=== PATIENT | male | born 1965 | race Caucasian/White ===

== ENCOUNTER 2021-02-12 11:14 | Emergency (ER) | payer MEDICARE ==
[2021-02-12 11:29] VITALS: BP 148/94; PULSE 94; RESP 18; TEMP 98.1
--- NOTE | 2021-02-12 11:53 | ED ---
General Adult HPI - General Chief complaint: Drug Screen Stated complaint: Drug test Time Seen by Provider: 02/12/21 11:31 Source: patient Mode of arrival: ambulatory Limitations: no limitations - History of Present Illness Initial comments: Dictation was produced using [employer] dictation software. please excuse any grammatical, word or spelling errors. Chief Complaint: Patient here in the emergency department requesting drug screen History of Present Illness: Patient is a 55-year-old male who presents today for concerns of abnormal outpatient drug screens. Patient was in rehab approximately one month ago where he was given phenobarbital for alcohol withdrawals. He has not had any drugs or any sort of strange supplements in the last month or so. He had a urine drug screen today at his [facility] where he lives. He states that he tested positive for phenobarbital. Patient was unhappy with the results given that he's been clean for several weeks now. Wants to have his urine checked. He wants to have his urine checked urinary emergency department. Patient has no medical complaints at this time. The ROS documented in this emergency department record has been reviewed and confirmed by me. Those systems with pertinent positive or negative responses have been documented in the HPI. All other systems are other negative and/or noncontributory. PHYSICAL EXAM: General Impression: Alert and oriented x3, not in acute distress HEENT: Normocephalic atraumatic, extra-ocular movements intact, pupils equal and reactive to light bilaterally, mucous membranes moist. Cardiovascular: Heart regular rate and rhythm Chest: Able to complete full sentences, no retractions, no tachypnea Abdomen: abdomen soft, non-tender, non-distended, no organomegaly Musculoskeletal: Pulses present and equal in all extremities, no peripheral edema Motor: no focal deficits noted Neurological: CN II-XII grossly intact, no focal motor or sensory deficits noted Skin: Intact with no visualized rashes Psych: Normal affect and mood ED course: 55-year-old male presents to the emergency department for urine drug screen. Vital signs upon arrival are within acceptable limits. Urine drug screen positive for barbiturates. Patient discharge. - Related Data Allergies Allergy/AdvReac Type Severity Reaction Status Date / Time No Known Allergies Allergy Verified 02/12/21 11:26 Review of Systems ROS Statement: Those systems with pertinent positive or pertinent negative responses have been documented in the HPI. ROS Other: All systems not noted in ROS Statement are negative. Past Medical History Past Medical History: No Reported History History of Any Multi-Drug Resistant Organisms: None Reported Past Surgical History: Back Surgery Past Psychological History: No Psychological Hx Reported Smoking Status: Current every day smoker Past Alcohol Use History: Abuse, Daily, Heavy Past Drug Use History: None Reported General Exam Limitations: no limitations Course Vital Signs 02/12/21 11:26 Temperature 98.1 F Pulse Rate 94 Respiratory 18 Rate Blood Pressure 148/94 O2 Sat by Pulse 99 Oximetry Medical Decision Making - Lab Data Lab Results 02/12/21 Range/Units 11:39 Urine Opiates Screen Not Detected (NotDetected) Ur Oxycodone Screen Not Detected (NotDetected) Urine Methadone Screen Not Detected (NotDetected) Ur Propoxyphene Screen Not Detected (NotDetected) Ur Barbiturates Screen Detected H (NotDetected) U Tricyclic Antidepress Not Detected (NotDetected) Ur Phencyclidine Scrn Not Detected (NotDetected) Ur Amphetamines Screen Not Detected (NotDetected) U Methamphetamines Scrn Not Detected (NotDetected) U Benzodiazepines Scrn Not Detected (NotDetected) Urine Cocaine Screen Not Detected (NotDetected) U Marijuana (THC) Screen Not Detected (NotDetected) Disposition Clinical Impression: Abnormal drug screen Disposition: HOME SELF-CARE Condition: Good Instructions (If sedation given, give patient instructions): Narcotic- Analgesic/Barbiturate (By mouth) Is patient prescribed a controlled substance at d/c from ED?: No Referrals: None,Stated [Primary Care Provider] - 1-2 days
[2021-02-12 13:24] LABS: Amphetamine Screen,Urine Not Detected (NotDetected); Barbiturate Screen,Urine Detected (NotDetected); Benzodiazepines Screen,Urine Not Detected (NotDetected); Cocaine Screen,Urine Not Detected (NotDetected); Methadone Screen, Urine Not Detected (NotDetected); Opiate Screen,Urine Not Detected (NotDetected); Oxycodone Screen, Urine Not Detected (NotDetected); Phencyclidine Screen,Urine Not Detected (NotDetected); Tricyclic Antidepressant,Urine Not Detected (NotDetected); Urn Cannabinoid Scrn Not Detected (NotDetected)
== END 2021-02-12 13:59 | disposition home or self-care (01) ==
LOC: EC 11:14
DX: R89.2 Abnormal level of other drugs, medicaments and biological substances in specimens from other organs, systems and tissues (principal); F17.200 Nicotine dependence, unspecified, uncomplicated
CPT/HCPCS: 80306; 99282

== ENCOUNTER → 2021-02-20 | Outpatient (CLI) | payer MEDICARE ==
[2021-02-21 15:34] LABS: African American GFR (CKD) 88.4 (60.0-200.0); Albumin 4.5 g/dL (3.80-4.90); Albumin/Globulin Ratio 1.5 (1.60-3.17); Anion Gap 11.2 mmol/L (4.00-12.00); BUN/Creat Ratio 15.45 Ratio (12.00-20.00); Calcium 9.8 mg/dL (8.7-10.3); Carbon Dioxide 19.8 mmol/L (21.6-31.8); Non-African American GFR(CKD) 76.2 (60.0-200.0); Potassium 4.8 mmol/L (3.5-5.5); Total Bilirubin 0.4 mg/dL (0.2-1.2); Total Protein 7.5 g/dL (6.2-8.2)
[2021-02-21 16:09] LABS: Hepatitis A Antibody IgM Non-Reactive (Non-Reactive); Hepatitis B Core IgM Non-Reactive (Non-Reactive); Hepatitis B Surface Antigen Non-Reactive (Non-Reactive); Hepatitis C IgG Antibody Reactive (Non-Reactive)
== END | disposition home or self-care (01) ==
LOC: LABWHC1 14:26
PROVIDERS: ATTEND Physician Assistant
DX: Z13.818 Encounter for screening for other digestive system disorders (principal); R94.5 Abnormal results of liver function studies
CPT/HCPCS: 36415; 80053; 80074

== ENCOUNTER → 2021-03-06 | Outpatient (CLI) | payer MEDICARE | END | disposition home or self-care (01) | LOC: LABWHC1 08:58 | PROVIDERS: ATTEND Internal Medicine | DX: Z79.811 Long term (current) use of aromatase inhibitors (principal) | CPT/HCPCS: 36415; 80184 ==

== ENCOUNTER 2023-11-08 13:59 | Inpatient (IN) | payer MEDICARE ==
--- NOTE | 2023-11-08 15:04 | ED ---
Psych HPI - General Chief Complaint: Psychiatric Symptoms Stated Complaint: mental health Time Seen by Provider: 11/08/23 14:50 Source: patient, RN notes reviewed Mode of arrival: ambulatory Limitations: no limitations - History of Present Illness Initial Comments: This is a 58-year-old male who presents to the emergency department for psychiatric evaluation. Patient states that this morning he started to feel suicidal with a plan to drown himself in the river. States that he had some depression over the last couple of days but it has not been as bad as it was today. Denies any triggering events. He had similar problems several years ago. Not currently on any medication or receiving any psychiatric care. Denies any homicidal ideations or auditory/visual hallucinations. MD Complaint: suicidal ideation, feels depressed - Related Data Home Medications Medication Instructions Recorded Confirmed No Known Home Medications 11/08/23 11/08/23 Allergies Allergy/AdvReac Type Severity Reaction Status Date / Time No Known Allergies Allergy Verified 11/08/23 16:26 Review of Systems ROS Statement: Those systems with pertinent positive or pertinent negative responses have been documented in the HPI. ROS Other: All systems not noted in ROS Statement are negative. Past Medical History Past Medical History: No Reported History History of Any Multi-Drug Resistant Organisms: None Reported Past Surgical History: Back Surgery Past Psychological History: No Psychological Hx Reported Smoking Status: Current every day smoker Past Alcohol Use History: None Reported Past Drug Use History: None Reported General Exam Limitations: no limitations General appearance: alert, in no apparent distress Head exam: Present: atraumatic, normocephalic, normal inspection Respiratory exam: Present: normal lung sounds bilaterally. Absent: respiratory distress, wheezes, rales, rhonchi, stridor Cardiovascular Exam: Present: regular rate, normal rhythm, normal heart sounds. Absent: systolic murmur, diastolic murmur, rubs, gallop, clicks Neurological exam: Present: alert, oriented X3, CN II-XII intact Psychiatric exam: Present: depressed, flat affect, suicidal ideation. Absent: homicidal ideation Skin exam: Present: warm, dry, intact, normal color. Absent: rash Course Vital Signs 11/08/23 14:10 Temperature 98.3 F Pulse Rate 94 Respiratory 20 Rate Blood Pressure 135/89 O2 Sat by Pulse 99 Oximetry Medical Decision Making - Medical Decision Making This is a 58 year old male who presents to the emergency department for psychiatric evaluation. Was pt. sent in by a medical professional or institution? @ -No Did you speak to anyone other than the patient for history? @ -No Did you review nursing and triage notes? @ -Yes, and I agree, it is accurate with regards to the patient's symptoms. Were old charts reviewed? @ -No Differential Diagnosis? @ -Differential Mental Health: Depression, anxiety, bipolar, psychosis, schizophrenia, borderline personality, situational depression, adjustment disorder, behavioral disorder, brain tumor, malingering, substance abuse, encephalopathy, medication reaction, dementia, hypothyroidism, degenerative neurologic disorder, lupus.... This is not meant to be all-inclusive list EKG interpreted by me (3pts min.)? @ -Not obtained X-rays interpreted by me (1pt min.)? @ -Not obtained CT interpreted by me (1pt min.)? @ -Not obtained U/S interpreted by me (1pt. min.)? @ -Not obtained What testing was considered but not performed? (CT, X-rays, U/S, labs)? Why? @ -None What meds were considered but not given? Why? @ -None Did you discuss the management of the patient with other professionals? @ -Yes, Mami Welch with [facility] who advised that the patient meets psychiatric admission criteria and will sign himself in voluntarily. Did you reconcile home meds? @ -Yes Was smoking cessation discussed for >3mins.? @ -No Was critical care preformed (if so, how long)? @ -No Were there social determinants of health that impacted care today? How? (Homelessness, low income, unemployed, alcoholism, drug addiction, tra nsportation, low edu. Level, literacy, decrease access to med. care, [facility], rehab)? @ -Alcoholism, potentially contributing to worsening of overall health status and mental health issues. Was there de-escalation of care discussed even if they declined? (Discuss DNR or withdrawal of care, Hospice)? @ -No What co-morbidities impacted this encounter? (DM, HTN, Smoking, COPD, CAD, Cancer, CVA, Hep., AIDS, mental health diagnosis, sleep apnea, morbid obesity)? @ -Alcoholism Was patient admitted / discharged? @ -Admitted. BAT was 0.044 on arrival and the patient is considered sober given that this was below the legal limit and he was medically cleared for [facility] evaluation. [facility] evaluated the patient and advised that given the suicidal ideations with active plan, he does meet criteria for inpatient psychiatric hospitalization. Patient will be signing himself in voluntarily. UDS ordered with results pending at the time of admission. Undiagnosed new problem with uncertain prognosis? @ -None Drug Therapy requiring intensive monitoring for toxicity (Heparin, Nitro, Insulin, Cardizem)? @ -None Were any procedures done? @ -None Diagnosis/symptom? @ -Suicidal ideations Acute, or Chronic, or Acute on Chronic? @ -Acute Uncomplicated (without systemic symptoms) or Complicated (systemic symptoms)? @ -Uncomplicated Side effects of treatment? @ -None Exacerbation, Progression, or Severe Exacerbation] @ -Not applicable Poses a threat to life or bodily function? @ -Yes, can lead to if patient were to proceed with suicidal ideations. This case was discussed in detail with the attending ED physician, Dr. Simpson. Presentation, findings, and treatment plan discussed in detail as well. - Lab Data Lab Results 11/08/23 Range/Units 16:05 SARS-CoV-2 (PCR) Not Detected (Not Detectd) Disposition Clinical Impression: Suicidal ideation Disposition: ADMITTED IP TO THIS HOSP
[2023-11-08] MEDS: LORazepam 1 MG TAB PO STA (18:04)
[2023-11-08] MEDS ORDERED: IBUPROFEN 600 MG TAB PO PRN (18:06)
[2023-11-08] MEDS ORDERED: hydrOXYzine HCL 50 MG/ML 1 ML VIAL IM PRN (18:06)
[2023-11-08] MEDS ORDERED: MAGNESIUM HYDROXIDE 2,400 MG/30 ML CUP PO PRN (18:06)
[2023-11-08] MEDS ORDERED: MAG HYDROX/AL HYDROX/SIMETH 355 ML BOTTLE PO PRN (18:06)
--- NOTE | 2023-11-09 00:11 | P.MDCNMH ---
History of Present Illness H&P Date: 11/09/23 Chief Complaint: Medical evaluation 58-year-old male with no significant past medical history Patient was brought in for evaluation of mental health due to depression and suicidal ideation he was planning on throwing himself in the river he was he is having some depressed mood over the past few days has been getting worse. He reports similar episodes in the past but he is currently on no medication and under no psychiatrist care He otherwise denies any fevers chills nausea vomiting chest pain trouble breathing abdominal pain GI bleeding changes in bowel or urinary habits Patient does admit to smoking and occasional alcohol denies any drugs review of systems Pertinent positives as noted in HPI. All other systems were reviewed and are negative on exam Constitutional: No acute distress, Eyes: Anicteric sclerae, moist conjunctiva, Pupils equal round reactive to light ENMT: NC/AT Oropharynx clear, no erythema, or exudates Lungs: Clear to auscultation Clear to percussion Normal respiratory effort, no accessory muscle use Cardiovascular: Heart regular in rate and rhythm, No murmurs, gallops, or rubs No peripheral edema Abdominal: Soft Nontender, no guarding, rebound or rigidity Abdomen moving with respiration Normoactive bowel sounds Extremities: No digital cyanosis No clubbing Pedal pulses intact and symmetrical Radial pulses intact and symmetrical No calf tenderness Psychiatric: Alert and oriented to person, place and time Neuro Muscles Strength 5/5 in all 4 extremities Sensation to light touch grossly present throughout Cranial nerves II-XII grossly intact Past Medical History Past Medical History: No Reported History History of Any Multi-Drug Resistant Organisms: None Reported Past Surgical History: Back Surgery Smoking Status: Current every day smoker Medications and Allergies Home Medications Medication Instructions Recorded Confirmed Type No Known Home Medications 11/08/23 11/08/23 History Allergies Allergy/AdvReac Type Severity Reaction Status Date / Time No Known Allergies Allergy Verified 11/08/23 16:26 Physical Exam Vitals: Vital Signs Temp Pulse Pulse Resp BP BP Pulse Ox 11/08/23 19:04 98.0 F 82 20 133/80 11/08/23 14:10 98.3 F 94 20 135/89 99 Intake and Output 11/08/23 11/08/23 11/09/23 14:59 22:59 06:59 Other: Weight 81.647 kg 82.735 kg Cranial Nerve Examination - Cranial Nerves Cranial Nerve II- Optic: Intact Cranial Nerve III- Oculomotor: Intact Cranial Nerve IV- Trochlear: Intact Cranial Nerve V- Trigeminal: Intact Cranial Nerve - Abducens: Intact Cranial Nerve VII- Facial: Intact Cranial Nerve VIII- Auditory: Intact Cranial Nerve IX- Glossopharyngeal: Intact Cranial Nerve X- Vagus: Intact Cranial Nerve XI- Accessory: Intact Cranial Nerve XII- Hypoglossal: Intact Assessment and Plan Assessment: Depression suicidal ideation management per psych Tobacco smoking Counseled to quit smoking Offered nicotine replacement therapy Blood work still pending Vital signs stable Thank you for this consultation
[2023-11-09 08:18] LABS: Basophils # (A) 0.1 k/uL (0-0.2); Basophils % (A) 1 %; Eosinophils # (A) 0.2 k/uL (0-0.7); Eosinophils % (A) 3 %; HCT 48.8 % (39.0-53.0); HGB 15.9 gm/dL (13.0-17.5); Lymphocytes # (A) 1.5 k/uL (1.0-4.8); Lymphocytes % (A) 28 %; MCH 31.3 pg (25.0-35.0); MCHC 32.6 g/dL (31.0-37.0); Mean Platelet Volume 7.5; Monocytes # (A) 0.4 k/uL (0-1.0); Monocytes % (A) 7 %; Neutrophils # (A) 3.3 k/uL (1.3-7.7); Neutrophils % (A) 60 %; Platelet Count 264 k/uL (150-450); RBC 5.08 m/uL (4.30-5.90); RDW 13.7 % (11.5-15.5); WBC 5.5 k/uL (3.8-10.6)
[2023-11-09] MEDS: LORazepam 1 MG TAB PO PRN (08:26)
[2023-11-09 08:35] LABS: ALT 34 U/L (4-49); AST 38 U/L (17-59); African American GFR (CKD) >90 (>60 ml/min/1.73 sqM); Albumin 3.6 g/dL (3.5-5.0); Alkaline Phosphatase 61 U/L (38-126); Anion Gap 5 mmol/L; Bilirubin, Delta 0.3 mg/dL (0.0-0.2); Bilirubin,Unconjugated 0.5 mg/dL (0.0-1.1); Blood Urea Nitrogen 17 mg/dL (9-20); Calcium 9.4 mg/dL (8.4-10.2); Carbon Dioxide 26 mmol/L (22-30); Chloride 109 mmol/L (98-107); Glucose 91 mg/dL (74-99); Non-African American GFR(CKD) 90 (>60 ml/min/1.73 sqM); Potassium 4.6 mmol/L (3.5-5.1); Sodium 140 mmol/L (137-145); Total Bilirubin 0.8 mg/dL (0.2-1.3); Total Protein 6.7 g/dL (6.3-8.2)
[2023-11-09] MEDS: NICOTINE 14MG/24HR PATCH TRANSDERM SCH (08:51)
--- NOTE | 2023-11-09 12:12 | P.HP ---
Psychiatric H&P - . H&P Date: 11/09/23 History & Physical: Allergies Allergy/AdvReac Type Severity Reaction Status Date / Time No Known Allergies Allergy Verified 11/08/23 16:26 Vital Signs Temp 98.0 F 11/08/23 19:04 Pulse 100 11/09/23 08:25 Resp 20 11/08/23 19:04 BP 115/78 11/09/23 08:25 Pulse Ox 99 11/08/23 14:10 FiO2 Intake & Output 11/08/23 11/09/23 11/09/23 18:59 06:59 18:59 Weight 82.735 kg 82.735 kg Laboratory Last Values WBC 5.5 k/uL (3.8-10.6) 11/09/23 07:47 RBC 5.08 m/uL (4.30-5.90) 11/09/23 07:47 Hgb 15.9 gm/dL (13.0-17.5) 11/09/23 07:47 Hct 48.8 % (39.0-53.0) 11/09/23 07:47 MCV 96.0 fL (80.0-100.0) 11/09/23 07:47 MCH 31.3 pg (25.0-35.0) 11/09/23 07:47 MCHC 32.6 g/dL (31.0-37.0) 11/09/23 07:47 RDW 13.7 % (11.5-15.5) 11/09/23 07:47 Plt Count 264 k/uL (150-450) 11/09/23 07:47 MPV 7.5 11/09/23 07:47 Neutrophils % 60 % 11/09/23 07:47 Lymphocytes % 28 % 11/09/23 07:47 Monocytes % 7 % 11/09/23 07:47 Eosinophils % 3 % 11/09/23 07:47 Basophils % 1 % 11/09/23 07:47 Neutrophils # 3.3 k/uL (1.3-7.7) 11/09/23 07:47 Lymphocytes # 1.5 k/uL (1.0-4.8) 11/09/23 07:47 Monocytes # 0.4 k/uL (0-1.0) 11/09/23 07:47 Eosinophils # 0.2 k/uL (0-0.7) 11/09/23 07:47 Basophils # 0.1 k/uL (0-0.2) 11/09/23 07:47 Sodium 140 mmol/L (137-145) 11/09/23 07:47 Potassium 4.6 mmol/L (3.5-5.1) 11/09/23 07:47 Chloride 109 mmol/L (98-107) H 11/09/23 07:47 Carbon Dioxide 26 mmol/L (22-30) 11/09/23 07:47 Anion Gap 5 mmol/L 11/09/23 07:47 BUN 17 mg/dL (9-20) 11/09/23 07:47 Creatinine 0.95 mg/dL (0.66-1.25) 11/09/23 07:47 Est GFR (CKD-EPI)AfAm >90 (>60 ml/min/1.73 sqM) 11/09/23 07:47 Est GFR (CKD-EPI)NonAf 90 (>60 ml/min/1.73 sqM) 11/09/23 07:47 Glucose 91 mg/dL (74-99) 11/09/23 07:47 Calcium 9.4 mg/dL (8.4-10.2) 11/09/23 07:47 Total Bilirubin 0.8 mg/dL (0.2-1.3) 11/09/23 07:47 Conjugated Bilirubin 0.0 mg/dL (0.0-0.3) 11/09/23 07:47 Unconjugated Bilirubin 0.5 mg/dL (0.0-1.1) 11/09/23 07:47 Delta Bilirubin 0.3 mg/dL (0.0-0.2) H 11/09/23 07:47 AST 38 U/L (17-59) 11/09/23 07:47 ALT 34 U/L (4-49) 11/09/23 07:47 Alkaline Phosphatase 61 U/L (38-126) 11/09/23 07:47 Total Protein 6.7 g/dL (6.3-8.2) 11/09/23 07:47 Albumin 3.6 g/dL (3.5-5.0) 11/09/23 07:47 TSH 0.874 mIU/L (0.465-4.680) 11/09/23 07:47 SARS-CoV-2 (PCR) Not Detected (Not Detectd) 11/08/23 16:05 11/09/23 12:06 this is a psychiatric assessment on Emeka Jackson who is a 58-year-old male and was hospitalized yesterday for depression and suicidal ideations However when seen today patient denies any thoughts of wanting to hurt himself he says that he's been on disability and gets about thousand dollars a month He says that he has been homeless for about a year and that he was living in a residential facility until he was thrown out of their for relapse Patient was in the last residential facility for only about few weeks and again states that he lost his residence due to relapse with alcohol Patient states that he is to be placed again He denies any thoughts of wanting harm himself or others He admits however that he was feeling helpless and hopeless without any place to stay and was feeling overwhelmed with being displaced Past history personal social history as described above Patient appears to be living in different residential homes and appears to be using his disability funds for his alcohol use Patient did not want to go into any specifics about any family history He denies any other substance use Mental status examination: Mental status examination: Reveals a middle-aged male who currently appears in no acute physical distress Patient is verbal and appropriate interaction Affect at this time appears to be fair Patient is shabbily dressed and groomed Patient is cooperative during the interview Thought processes are goal directed sequential and logical Denies any suicidal ideations or plans at this time No paranoia or other delusional thinking noted Cognitively patient appears to be average Formal and operational judgment and insight are fair No involuntary movements noted diagnostic impression: Adjustment disorder with mixed emotional features Mood disorder alcohol related Depressive disorder by history Alcohol use disorder chronic Personality disorder with antisocial traits Plan: Plan: The patient will be hospitalized on the unit for further evaluation and treatment Therapy will be focused on providing supportive care improving his coping abilities with a multimodal treatment Patient will also participate in on the gross activities individual milieu group OT RT PT and pharmacotherapy Approximately length of stay would be 7-10 days Will continue her current home medications including adding trazodone 100 mg at bedtime for insomnia and Zoloft 50 mg by mouth every morning ancillary services manager will be involved for appropriate discharge planning monitor for any withdrawal symptoms Ativan 1 mg 3 times a day when necessary for any withdrawal symptoms Aquilino Chiu M.D. 11/09/23 12:11 Active Medications Generic Name Dose Route Start Last Admin Trade Name Freq PRN Reason Stop Dose Admin Acetaminophen 650 mg 11/08/23 18:06 Acetaminophen Tab 325 Mg Tab PO Q4HR PRN Mild Pain (Scale 1 to 3) Al Hydroxide/Mg Hydroxide 30 ml 11/08/23 18:06 Mag Hydrox/Al Hydrox/Simeth 355 Ml Bottle PO Q4HR PRN GI Upset Hydroxyzine HCl 25 mg 11/08/23 18:06 Hydroxyzine Hcl 25 Mg Tab PO Q6HR PRN Anxiety Hydroxyzine HCl 25 mg 11/08/23 18:06 Hydroxyzine Hcl 50 Mg/Ml 1 Ml Vial IM Q6HR PRN Severe Anxiety Ibuprofen 600 mg 11/08/23 18:06 Ibuprofen 600 Mg Tab PO Q6HR PRN Moderate Pain (Scale 4 to 6) Lorazepam 1 mg 11/09/23 08:14 11/09/23 08:26 Lorazepam 1 Mg Tab PO 1 mg TID PRN Administration Alcohol Withdrawal Magnesium Hydroxide 2,400 mg 11/08/23 18:06 Magnesium Hydroxide 2,400 Mg/30 Ml Cup PO DAILY PRN Constipation Nicotine 1 patch 11/09/23 09:00 11/09/23 08:51 Nicotine 14mg/24hr Patch TRANSDERM Not Given DAILY [facility] 11/09/23 12:12
[2023-11-09] MEDS ORDERED: traZODone HCL 50 MG TAB PO PRN (12:13)
[2023-11-09] MEDS: SERTRALINE 50 MG TAB PO STA (12:37)
[2023-11-09 12:57] LABS: LDL Cholesterol,Calculated 61.7 mg/dL (0.0-131.0); VLDL Calculation 9.84 mg/dL (5.00-40.00)
[2023-11-10] MEDS: SERTRALINE 50 MG TAB PO SCH (09:30)
[2023-11-10] MEDS ORDERED: haloperidoL 5 MG TAB PO PRN (12:04)
[2023-11-10] MEDS ORDERED: HALOPERIDOL LACTATE 5 MG/ML 1 ML VIAL IM PRN (12:04)
--- NOTE | 2023-11-10 12:10 | P.PN ---
Progress Note - Text Progress Note Date: 11/10/23 Interval History: Patient was seen in his room and was directable and agreeable to speak with wr iter in the office. Patient is endorsing thoughts of hurting himself, he stated he wants to go drown himself in the river. He is denying and withdraw symptoms, however, has a slight tremor. Will add Librium. Patient agreeable. He At this time patient endorses suicidal ideations with plan to potentially jump in the river, denies homicidal intent or plan. Patient offered no other complaints. Patient denies any auditory, visual hallucinations and denies any paranoia or delusions. Patient denies any side effects from the medications and has been compliant with meds. Mental Status Exam: General Appearance: Patient appears to be stated age is alert, directable, and cooperative. Dishelveled appearance, wearing his own clothes, tattoos. Behavior: Patient is calmly seated without any agitated behavior, Speech: Patient's speech is fluent and nonpressured. concrete. Mood/Affect: Mood is depressed, affect is congruent and constricted. Suicidality/Homicidality: Patient denies homicidal ideation intent or plan. admits to SI, with plan to jump in the river. Perceptions: Patient denies any visual hallucinations [and denies any auditory hallucinations Though content/process: There is no evidence of any delusional thought content and thought process is linear and goal-directed. concrete, depressive content. Memory and concentration: AOX3, grossly intact for the purposes of this session Judgment and insight: Improving mildly Assessment: major depressive disorder, without psychotic features Alcohol use disorder, severe dependance, currently in withdraw Personality disorder unspecified nicotine dependance homelessness Plan: -Patient continues to meet criteria for inpatient psychiatric admission for symptom stabilization and safety. Patient has signed adult voluntary form and medication consent and was placed in patient's chart. -Medications: trazodone 50mg po qhs prn for sleep, zoloft 50mg po daily for mood/anxiety, add Librium 20mg tid for withdraw symptoms, with a plan to taper down -CIWA protocol q4hr with prn ativan -When necessary Ativan and Haldol for agitation/aggression. vistaril prn for anxiety -NRT - nicotine patch -SW on board for discharge planning. Encouraged the patient to participate in milieu. will offer patient rehab and anti craving medications
--- NOTE | 2023-11-11 11:19 | P.PN ---
Progress Note - Text Progress Note Date: 11/11/23 Interval History: Patient was seen in his room and was directable and agreeable to speak with wr iter in the office. Patient is endorsing high anxiety today, and endorsing feeling of hurting himself, but will not do anything while on the unit. Patient claims he is attending a couple groups. He At this time patient endorses suicidal ideations , but states no plan today, denies homicidal intent or plan. Fur Dry Cleaner Hand spoke with patient about attending rehab, and suggested that he call to get screened. Patient agreeable, also agreeable to take anti craving medication. Will start that medication today.Patient offered no other complaints. Patient denies any auditory, visual hallucinations and denies any paranoia or delusions. Patient denies any side effects from the medications and has been compliant with meds. Mental Status Exam: General Appearance: Patient appears to be stated age is alert, directable, and cooperative. Dishelveled appearance, wearing his own clothes, tattoos. Behavior: Patient is calmly seated without any agitated behavior, Speech: Patient's speech is fluent and nonpressured. concrete. Mood/Affect: Mood is depressed, affect is congruent and constricted. Suicidality/Homicidality: Patient denies homicidal ideation intent or plan. admits to SI, with plan to jump in the river. Perceptions: Patient denies any visual hallucinations and denies any auditory hallucinations Though content/process: There is no evidence of any delusional thought content and thought process is linear and goal-directed. concrete, depressive content. Memory and concentration: AOX3, grossly intact for the purposes of this session Judgment and insight: Improving mildly Assessment: major depressive disorder, without psychotic features Alcohol use disorder, severe dependance, currently in withdraw Personality disorder unspecified nicotine dependance homelessness Plan: -Patient continues to meet criteria for inpatient psychiatric admission for symptom stabilization and safety. Patient has signed adult voluntary form and medication consent and was placed in patient's chart. -Medications: trazodone 50mg po qhs prn for sleep,increase zoloft 100mg po daily for mood/anxiety, decrease Librium 10mg qid for withdraw symptoms, with a plan to taper down, add naltrexone 50mg daily for cravings. -CIWA protocol with prn ativan -When necessary Ativan and Haldol for agitation/aggression. vistaril prn for anxiety -NRT - nicotine patch -SW on board for discharge planning. Encouraged the patient to participate in milieu. Patient will call access line for rehab.
[2023-11-11] MEDS: NALTREXONE HCL 50 MG TAB PO SCH (12:06)
[2023-11-11] MEDS: hydrOXYzine HCL 25 MG TAB PO PRN (12:51)
[2023-11-12] MEDS: SERTRALINE 100 MG TAB PO SCH (09:06)
[2023-11-12] MEDS ORDERED: hydrOXYzine pamoate 25 MG CAP PO PRN (10:30)
--- NOTE | 2023-11-12 11:02 | P.PN ---
Progress Note - Text Progress Note Date: 11/12/23 Interval History: Patient was seen in his room and was directable and agreeable to speak with wr iter in the office. Patient continues to endorse high anxiety and depression, and is no longer endorsing intent of hurting himself. Patient states he is sleeping well, and his appetite is good. He also denies any withdraw symptoms today. Patient claims he is attending a couple groups. He is no longer endorsing suicidal ideations, denies homicidal intent or plan. Securities Adviser spoke with patient about attending rehab, and suggested the patient call to get screened today, patient stated he would. Patient offered no other complaints. Patient denies any auditory, visual hallucinations and denies any paranoia or delusions. Patient denies any side effects from the medications and has been compliant with meds. Mental Status Exam: General Appearance: Patient appears to be stated age is alert, directable, and cooperative. improving appearance, wearing his own clothes, tattoos. Behavior: Patient is calmly seated without any agitated behavior, Speech: Patient's speech is fluent and nonpressured. concrete. Mood/Affect: Mood is depressed and anxious, affect is congruent and constricted. Suicidality/Homicidality: Patient denies homicidal ideation intent or plan. denies SI today Perceptions: Patient denies any visual hallucinations and denies any auditory hallucinations Though content/process: There is no evidence of any delusional thought content and thought process is linear and goal-directed. concrete, depressive content. Memory and concentration: AOX3, grossly intact for the purposes of this session Judgment and insight: poor, Improving mildly Assessment: major depressive disorder, without psychotic features Alcohol use disorder, severe dependance, currently in withdraw Personality disorder unspecified nicotine dependance homelessness Plan: -Patient continues to meet criteria for inpatient psychiatric admission for symptom stabilization and safety. Patient has signed adult voluntary form and medication consent and was placed in patient's chart. -Medications: trazodone 50 mg po qhs prn for sleep, zoloft 100mg po daily for mood/anxiety, decrease Librium 10mg tid for withdraw symptoms, with a plan to taper down, naltrexone 50mg daily for cravings. Visteral 50mg [id number] prn for anxiety -CIWA protocol with prn ativan -When necessary Ativan and Haldol for agitation/aggression. vistaril prn for anxiety -NRT - nicotine patch -SW on board for discharge planning. Encouraged the patient to participate in milieu. Patient will call access line for rehab.
--- NOTE | 2023-11-13 10:19 | P.PN ---
Progress Note - Text Progress Note Date: 11/13/23 Interval History: Patient was seen in his room and was directable and agreeable to speak with wr iter. Patient continues to appear to be fairly constricted in his affect, continues to have a disheveled appearance. He was given the number for screening rehab yesterday by social insurance administrator twice however patient claims that "I could not get through" and was not able to do the screening. He was encouraged again to do that today. He continues to be fairly concrete, evasive, has been mainly isolating in his room. Continues to endorse anxiety and mild depression. He also denies any withdraw symptoms today. He is currently denying any suicidal ideations, denies homicidal intent or plan. Patient denies any auditory, visual hallucinations and denies any paranoia or delusions. Patient denies any side effects from the medications and has been compliant with meds. Mental Status Exam: General Appearance: Patient appears to be stated age is alert, directable, and cooperative. improving appearance, wearing his own clothes, tattoos. Behavior: Patient is calmly seated without any agitated behavior, somewhat evasive Speech: Patient's speech is fluent and nonpressured. concrete. Mood/Affect: Mood is depressed and anxious, affect is congruent and constricted. Suicidality/Homicidality: Patient denies homicidal ideation intent or plan. denies SI today Perceptions: Patient denies any visual hallucinations and denies any auditory hallucinations Though content/process: There is no evidence of any delusional thought content and thought process is linear and goal-directed. concrete, poverty of content Memory and concentration: AOX3, grossly intact for the purposes of this session Judgment and insight: poor, Improving mildly Assessment: major depressive disorder, without psychotic features Alcohol use disorder, severe dependance, currently in withdraw Personality disorder unspecified nicotine dependance homelessness Plan: -Patient continues to meet criteria for inpatient psychiatric admission for symptom stabilization and safety. Patient has signed adult voluntary form and medication consent and was placed in patient's chart. -Medications: trazodone 50 mg po qhs prn for sleep, zoloft 150mg po daily for mood/anxiety, decrease Librium 10mg bid for withdraw symptoms, with a plan to d/c after tomorrow morning. naltrexone 50mg daily for cravings. Vistaril 50mg [id number] prn for anxiety -[facility] protocol with prn ativan -When necessary Ativan and Haldol for agitation/aggression -NRT - nicotine patch -SW on board for discharge planning. Encouraged the patient to participate in milieu. Patient will call access line for rehab. if patient does not call for rehab then likely discharge either friday vs friday to assisted.
[2023-11-14] MEDS: SERTRALINE 100 MG TAB PO SCH (08:42)
--- NOTE | 2023-11-14 11:18 | P.PN ---
Progress Note - Text Progress Note Date: 11/14/23 Interval History: Patient was seen in his room and was directable and agreeable to speak with wr iter. Patient continues to appear to be fairly constricted in his affect, continues to have a disheveled appearance. When sports writer asked patient about calling the access line for rehab, patient stated he did, but he can not remember what they said. He continues to be fairly concrete, evasive, has been mainly isolating in his room. Continues to endorse high anxiety and mild depression. He also denies any withdraw symptoms today. He is currently denying any suicidal ideations, denies homicidal intent or plan. Patient denies any auditory, visual hallucinations and denies any paranoia or delusions. Patient denies any side effects from the medications and has been compliant with meds. Mental Status Exam: General Appearance: Patient appears to be stated age is alert, directable, and cooperative. improving appearance, wearing his own clothes, tattoos. Behavior: Patient is calmly seated without any agitated behavior, somewhat evasive Speech: Patient's speech is fluent and nonpressured. concrete. Mood/Affect: Mood is depressed and anxious, affect is congruent and constricted. Suicidality/Homicidality: Patient denies homicidal ideation intent or plan. denies SI today Perceptions: Patient denies any visual hallucinations and denies any auditory hallucinations Though content/process: There is no evidence of any delusional thought content and thought process is linear and goal-directed. concrete, poverty of content. Memory and concentration: AOX3, grossly intact for the purposes of this session Judgment and insight: poor, Improving mildly Assessment: major depressive disorder, without psychotic features Alcohol use disorder, severe dependance, currently in withdraw Personality disorder unspecified nicotine dependance homelessness Plan: -Patient continues to meet criteria for inpatient psychiatric admission for symptom stabilization and safety. Patient has signed adult voluntary form and medication consent and was placed in patient's chart. -Medications: trazodone 50 mg po qhs prn for sleep, increase zoloft 200 mg po daily starting friday morning for mood/anxiety, naltrexone 50mg daily for cravings. Vistaril 50mg [id number] prn for anxiety -When necessary Ativan and Haldol for agitation/aggression -NRT - nicotine patch -SW on board for discharge planning. Encouraged the patient to participate in milieu. Patient will call access line for rehab, unknown if patient completed screening or not. if patient does not call for rehab then likely discharge friday to [facility].
[2023-11-15] MEDS: SERTRALINE 100 MG TAB PO ONE (09:13)
--- NOTE | 2023-11-15 11:31 | P.PN ---
Subjective Progress Note Date: 11/15/23 Principal diagnosis: Assessment: major depressive disorder, without psychotic features Alcohol use disorder, severe dependance, currently in withdraw Personality disorder unspecified nicotine dependance homelessness Patient Name: Emeka Jackson Date of : 1965 Patient Status: Inpatient Attending Provider: Janes Sprague Date: 11/15/23 Initialization Date: 11/14/23 08:47 Active Medications Acetaminophen (Acetaminophen Tab 325 Mg Tab) 650 mg PO Q4HR PRN PRN Reason: Mild Pain (Scale 1 to 3) Al Hydroxide/Mg Hydroxide (Mag Hydrox/Al Hydrox/Simeth 355 Ml Bottle) 30 ml PO Q4HR PRN PRN Reason: GI Upset Haloperidol (Haloperidol 5 Mg Tab) 5 mg PO Q6HR PRN PRN Reason: Agitation Haloperidol Lactate (Haloperidol Lactate 5 Mg/Ml 1 Ml Vial) 5 mg IM Q6HR PRN PRN Reason: Agitation or Acute Psychosis Hydroxyzine Pamoate (Hydroxyzine Pamoate 25 Mg Cap) 50 mg PO Q8HR PRN PRN Reason: Anxiety Ibuprofen (Ibuprofen 600 Mg Tab) 600 mg PO Q6HR PRN PRN Reason: Moderate Pain (Scale 4 to 6) Lorazepam (Lorazepam 1 Mg Tab) 1 mg PO TID PRN PRN Reason: Alcohol Withdrawal Last Admin: 11/09/23 08:26 Dose: 1 mg Magnesium Hydroxide (Magnesium Hydroxide 2,400 Mg/30 Ml Cup) 2,400 mg PO DAILY PRN PRN Reason: Constipation Naltrexone HCl (Naltrexone Hcl 50 Mg Tab) 50 mg PO DAILY [facility] Last Admin: 11/15/23 09:14 Dose: 50 mg Nicotine (Nicotine 14mg/24hr Patch) 1 patch TRANSDERM DAILY [facility] Last Admin: 11/15/23 09:14 Dose: Not Given Sertraline HCl (Sertraline 100 Mg Tab) 200 mg PO DAILY [facility] Trazodone HCl (Trazodone Hcl 50 Mg Tab) 50 mg PO HS PRN PRN Reason: Insomnia subjective data: Interval History: Patient was seen in his room and was directable and agreeable to speak with telegraphic typewriter operator. Patient continues to appear to be fairly constricted in his affect, continues to have a disheveled appearance.and has a strong body odor He continues to be fairly concrete, evasive, has been mainly isolating in his room. He admits that he feels anxious Reports that waiting to to be transferred to a rehab facility He is currently denying any suicidal ideations, denies homicidal intent or plan. Patient denies any auditory, visual hallucinations and denies any paranoia or delusions. Patient denies any side effects from the medications and has been compliant with meds. Mental Status Exam: General Appearance: Patient appears to be stated age is alert, directable, and cooperative.. Behavior: Patient is calmly being without any agitated behavior, Sarahi a motivated and mostly response with monosyllables Speech: Patient's speech is fluent and nonpressured. concrete. Mood/Affect: Mood is blunted, affect is congruent and constricted. Suicidality/Homicidality: Patient denies homicidal ideation intent or plan. denies SI today Perceptions: Patient denies any visual hallucinations and denies any auditory hallucinations Though content/process: There is no evidence of any delusional thought content and thought process is linear and goal-directed. concrete, poverty of content. Memory and concentration: AOX3, grossly intact for the purposes of this session Judgment and insight: poor, Improving mildly Assessment: major depressive disorder, without psychotic features Alcohol use disorder, severe dependance, currently in withdraw Personality disorder unspecified nicotine dependance homelessness Plan:agree with the current treatment plan -Patient continues to meet criteria for inpatient psychiatric admission for symptom stabilization and safety. Patient has signed adult voluntary form and medication consent and was placed in patient's chart. -Medications: trazodone 50 mg po qhs prn for sleep, zoloft 200 mg po daily naltrexone 50mg daily for cravings. Vistaril 50mg [id number] prn for anxiety -When necessary Ativan and Haldol for agitation/aggression -NRT - nicotine patch - on board for discharge planning. Encouraged the patient to participate in milieu. Patient will call access line for rehab, if patient does not call for rehab then likely discharge friday to [facility]. Aquilino Chiu M.D. Objective - Vital Signs Vital signs: Vital Signs Temp 97.8 F 11/15/23 06:00 Pulse 64 11/15/23 06:00 Resp 18 11/15/23 06:00 BP 110/77 11/15/23 06:00 Pulse Ox 94 L 11/15/23 06:00 FiO2 - Labs CBC & Chem 7: 11/09/23 07:47 11/09/23 07:47
[2023-11-16] MEDS: SERTRALINE 100 MG TAB PO SCH (10:05)
--- NOTE | 2023-11-16 10:51 | P.PN ---
Subjective Progress Note Date: 11/16/23 Principal diagnosis: Assessment: major depressive disorder, without psychotic features Alcohol use disorder, severe dependance, currently in withdraw Personality disorder unspecified nicotine dependance homelessness Patient Name: Emeka Jackson Date of : 1965 Patient Status: Inpatient Attending Provider: Janes Sprague Date: 11/16/23 Initialization Date: 11/14/23 08:47 Active Medications Acetaminophen (Acetaminophen Tab 325 Mg Tab) 650 mg PO Q4HR PRN PRN Reason: Mild Pain (Scale 1 to 3) Al Hydroxide/Mg Hydroxide (Mag Hydrox/Al Hydrox/Simeth 355 Ml Bottle) 30 ml PO Q4HR PRN PRN Reason: GI Upset Haloperidol (Haloperidol 5 Mg Tab) 5 mg PO Q6HR PRN PRN Reason: Agitation Haloperidol Lactate (Haloperidol Lactate 5 Mg/Ml 1 Ml Vial) 5 mg IM Q6HR PRN PRN Reason: Agitation or Acute Psychosis Hydroxyzine Pamoate (Hydroxyzine Pamoate 25 Mg Cap) 50 mg PO Q8HR PRN PRN Reason: Anxiety Ibuprofen (Ibuprofen 600 Mg Tab) 600 mg PO Q6HR PRN PRN Reason: Moderate Pain (Scale 4 to 6) Lorazepam (Lorazepam 1 Mg Tab) 1 mg PO TID PRN PRN Reason: Alcohol Withdrawal Last Admin: 11/09/23 08:26 Dose: 1 mg Magnesium Hydroxide (Magnesium Hydroxide 2,400 Mg/30 Ml Cup) 2,400 mg PO DAILY PRN PRN Reason: Constipation Naltrexone HCl (Naltrexone Hcl 50 Mg Tab) 50 mg PO DAILY [facility] Last Admin: 11/15/23 09:14 Dose: 50 mg Nicotine (Nicotine 14mg/24hr Patch) 1 patch TRANSDERM DAILY [facility] Last Admin: 11/15/23 09:14 Dose: Not Given Sertraline HCl (Sertraline 100 Mg Tab) 200 mg PO DAILY [facility] Trazodone HCl (Trazodone Hcl 50 Mg Tab) 50 mg PO HS PRN PRN Reason: Insomnia subjective data: Interval History: patient was seen in the hallway very had just stepped out Patient states that he is doing well He says that he slept well He states that his medications are agreeable with him He denies any side effects from his current medications He states that he is looking forward to the rehab facility whenever that opens up He otherwise denies any other issues or concerns Mental Status Exam: General Appearance: Patient appears to be stated age is alert, directable, and cooperative.. Behavior: Patient is calmly being without any agitated behavior, much more cooperative today Speech: Patient's speech is fluent and nonpressured. concrete. Mood/Affect: Mood is blunted, affect is congruent and constricted. Suicidality/Homicidality: Patient denies homicidal ideation intent or plan. denies SI today Perceptions: Patient denies any visual hallucinations and denies any auditory hallucinations Though content/process: There is no evidence of any delusional thought content and thought process is linear and goal-directed. concrete, poverty of content. Memory and concentration: AOX3, grossly intact for the purposes of this session Judgment and insight: has some insight Assessment: major depressive disorder, without psychotic features Alcohol use disorder, severe dependance, currently in withdraw Personality disorder unspecified nicotine dependance homelessness Plan:agree with the current treatment plan -Patient continues to meet criteria for inpatient psychiatric admission for symptom stabilization and safety. Patient has signed adult voluntary form and medication consent and was placed in patient's chart. -Medications: trazodone 50 mg po qhs prn for sleep, zoloft 200 mg po daily naltrexone 50mg daily for cravings. Vistaril 50mg [id number] prn for anxiety -When necessary Ativan and Haldol for agitation/aggression -NRT - nicotine patch -SW on board for discharge planning. Encouraged the patient to participate in milieu. Patient will call access line for rehab, if patient does not call for rehab then likely discharge friday to care home. Aquilino Chiu M.D. Objective - Vital Signs Vital signs: Vital Signs Temp 97.8 F 11/15/23 06:00 Pulse 64 11/15/23 06:00 Resp 18 11/15/23 06:00 BP 110/77 11/15/23 06:00 Pulse Ox 94 L 11/15/23 06:00 FiO2 Intake & Output 11/15/23 11/16/23 11/16/23 18:59 06:59 18:59 Weight 84.141 kg - Labs CBC & Chem 7: 11/09/23 07:47 11/09/23 07:47
--- NOTE | 2023-11-17 13:05 | P.PN ---
Progress Note - Text Progress Note Date: 11/17/23 Clinical Problems: Alcohol induced depressive disorder, alcohol use disorder severe, alcohol withdrawal, lack of stable housing, suspected developmental disorder Interim history: Chart reviewed and patient interviewed. He is a 58-year-old male who has a history of an alcohol use disorder. He presented to the psychiatric unit with complaints of depression and suicidal ideation. In the ED his BAT was 0.044. He has had no significant alcohol withdrawal symptoms. Since admission to the unit he has not participated in therapeutic groups and activities. During team meeting social work expressed frustration that he is unmotivated for any follow-up treatment. Nurse reports that he spends his time in bed coming out for meals. During the interview he provided little information. He elects she continues to feel depressed but denied suicidal ideation. His greatest concern was whether or not I would discharge him today because he does not want to live in a residential. We discussed alternatives such as residential substance abuse treatment. He expressed an interest but according to community mental health social worker has taken no action. Mental status exam: He presented as disheveled middle-aged male was pleasant and superficially cooperative with interview. He made eye contact but at times did not appear to be attending to the interview He showed no abnormal involuntary movements. His speech was not s spontaneous and he showed properly content. His affect was flat. No suicidal ideation, wishes or homicidal ideation. He feels helpless and hopeless. No apparent psychotic symptoms. Thinking was concrete. Assessment: Continued complaints of depression from complicated by suicidal ideation. However hopeless and helpless. Multiple social problems in addition to alcohol use disorder. No motivation for treatment or follow-up. Plan: Encouraged him to contact Access to arrange for residential substance abuse treatment. I also spoke with the community mental health social worker about my interaction and she will encourage him similarly. Continue Zoloft 200 mg daily and trazodone 50 mg at bedtime as needed, naltrexone 50 mg daily and nicotine patch for nicotine withdrawal. Encourage participation in therapeutic groups and activities. sawmill or timber yard worker to talk with him again about residential substance use treatment. Plan for discharge on 11/18/2023 to a homeless residential with follow-up with [facility] unless he reaches for admission to a residential substance abuse treatment program.
[2023-11-17] MEDS: ACETAMINOPHEN TAB 325 MG TAB PO PRN (19:59)
--- NOTE | 2023-11-18 13:50 | P.PN ---
Progress Note - Text Progress Note Date: 11/18/23 Clinical Problems: Alcohol induced depressive disorder, alcohol use disorder severe, alcohol withdrawal, lack of stable housing Interim history: I reviewed the medical record, interviewed the patient and discussed the treatment and treatment plan with the treatment team. Mr. Jackson complains of being anxious and requested something for anxiety. He alleges that the only medication that was effective for anxiety was clonazepam. This had been prescribed by his primary. I reviewed [facility] and verified that his primary had prescribed Klonopin last year. I explained my reluctance to prescribe clonazepam because he has an alcohol use problem. I offered BuSpar but he alleged that it was not effective. He has not called access for residential subs use treatment. He understands that otherwise we would discharge him to a [facility] Mental status exam: He presented as a somewhat disheveled appearing middle-aged male who is pleasant on approach. He appeared to make eye contact and understand the interview. He had a distressed facial expression. He was alert and oriented to person, place and time. He was fidgety throughout the interview. He walks slowly but steadily. His speech was nonspontaneous at decreased rate, volume and rhythm. Affect was depressed and not reactive. No suicidal ideation, versus homicidal ideation. Expressed feelings of hopelessness helplessness but not hopelessness. Ruminate about his anxiety. No ideas of reference,. Ideation or delusions. Thinking was very concrete but coherent. He did not appear to be responding to internal stimuli. Assessment: Alcohol symptoms appear resolved except for residual anxiety. Apparently unmotivated for treatment. Lack of stable housing Plan: Encouraged to call access for residential substance abuse treatment. Zoloft 200 mg daily, trazodone 50 mg at bedtime as needed, ReVia 50 mg daily, trial of gabapentin 100 mg twice daily for anxiety, continue Vistaril 50 mg every 8 as needed for anxiety. If she does not call access or obtain admission for residential treatment then discharged to a [facility]. Plan on discharge 11/19/2023
[2023-11-18] MEDS: GABAPENTIN 100 MG CAP PO SCH (14:25)
[2023-11-19 07:00] VITALS: BP 95/57; PULSE 66; RESP 16; TEMP 97.9
--- NOTE | 2023-11-19 08:06 | P.DS ---
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 [facility] of depression and suicidal ideation. In the ED he is 20 he was 0.044. He is homeless since he was dismissed from a residential facility following relapse for alcohol. He told the attending physician that he has thoughts of jumping into the [facility] to end his life. mg/day HOSPITAL COURSE: We admitted him to the psychiatric unit under the care of Dr. Sprague He provided a comprehensive biopsychosocial assessment. A independent crop consultant fiscal technician completed the initial physical exam and diagnosed tobacco use disorder. We treated his withdrawal symptoms with tapering doses of Librium and Ativan using the CIWA protocol. He had minimal symptoms of alcohol withdrawal when complicated by delirium. We treated his depression with Zoloft titrating to 100 mg/day. Also prescribed trazodone for for sleep. He posed no management problems and no episodes of behavioral dyscontrol. He did not participate in therapeutic community. He repeatedly refused to attend all therapeutic groups and activities. He declined our offer for residential substance abuse treatment. MENTAL STATUS ON DISCHARGE: He presented as a carefully groomed elderly male who was pleasant on approach. He made eye contact and appeared to attend to the interview. He had no prominent physical abnormalities. He had a sad facial expression. He has some psychomotor retardation but no abnormal movements. Her speech was spontaneous with decreased rate and volume. His affect was depressed. No suicidal ideation, wish homicidal ideation. No depressive cognitions. He was not ruminative or obsessive. His thinking was abstract, organized and goal directed. No hallucinations. DISPOSITION: He will be discharged to a [facility]. He has a follow-up appointment scheduled with [facility]. Discharge medications listed below. Patient Condition at Discharge: Stable Plan - Discharge Summary Discharge Rx Participant: No New Discharge Prescriptions: New Nicotine 14Mg/24Hr Patch [Habitrol] 1 patch TRANSDERM DAILY patch Gabapentin [Neurontin] 100 mg PO BID #60 cap Acetaminophen Tab [Tylenol] 650 mg PO Q4HR PRN tab PRN Reason: Mild Pain (Scale 1 To 3) Naltrexone HCl [Revia] 50 mg PO DAILY #30 tab Sertraline [Zoloft] 200 mg PO DAILY #60 tab Discharge Medication List Acetaminophen Tab [Tylenol] 650 mg PO Q4HR PRN tab 11/19/23 [Rx] Gabapentin [Neurontin] 100 mg PO BID #60 cap 11/19/23 [Rx] Naltrexone HCl [Revia] 50 mg PO DAILY #30 tab 11/19/23 [Rx] Nicotine 14Mg/24Hr Patch [Habitrol] 1 patch TRANSDERM DAILY patch 11/19/23 [Rx] Sertraline [Zoloft] 200 mg PO DAILY #60 tab 11/19/23 [Rx] Follow up Appointment(s)/Referral(s): [facility] [Outside] - 11/21/23 10:00 am (11/21/2023 10:00AM - 11:00AM KAMINI AGUILAR 11/28/2023 12:30PM - 1:30PM THERESA ALVA ) [facility] [[facility]STA[facility] - 1 Week Patient Instructions/Handouts: How to Stop Smoking (DC), Depression (DC), Alcohol Intoxication (DC) Activity/Diet/Wound Care/Special Instructions: Avoid the use of street drugs and alcohol. Take all medications as prescribed. When you are in need of refills on your medications, please contact your medical provider and/or outpatient psychiatrist/provider to have this done. Please go to your scheduled outpatient appointment for aftercare treatment. If symptoms return or become worse, call the crisis line at and/or go to the nearest emergency room for evaluation. National Suicide Hotline 988 Discharge Disposition: HOME SELF-CARE
[2023-11-19] MEDS: NICOTINE 14MG/24HR PATCH TRANSDERM SCH (09:47)
== END 2023-11-19 15:48 | disposition home or self-care (01) | DRG 897 ==
LOC: EC 13:59 → 3MHU 17:40
PROVIDERS: ADMIT Psychiatry & Neurology Psychiatry; ATTEND Psychiatry & Neurology Psychiatry
DX: F10.24 Alcohol dependence with alcohol-induced mood disorder (principal); R45.851 Suicidal ideations; Z59.01 Sheltered homelessness; F60.9 Personality disorder, unspecified; F10.239 Alcohol dependence with withdrawal, unspecified; Z11.52 Encounter for screening for COVID-19; F41.9 Anxiety disorder, unspecified; G47.00 Insomnia, unspecified; K59.00 Constipation, unspecified; F17.210 Nicotine dependence, cigarettes, uncomplicated; Z71.6 Tobacco abuse counseling
CPT/HCPCS: 80053; 80061; 82075; 82248; 83036; 84443; 85025; 87635; 99285

== ENCOUNTER 2024-10-05 10:33 | Inpatient (IN) | payer MEDICARE, MEDICAID ==
--- NOTE | 2024-10-05 11:57 | ED ---
Psych HPI - General Chief Complaint: Psychiatric Symptoms Stated Complaint: SI Time Seen by Provider: 10/05/24 10:40 Source: patient, RN notes reviewed Mode of arrival: ambulatory Limitations: no limitations - History of Present Illness Initial Comments: This is a 59-year-old male who presents to the emergency department for increasing depression and suicidal ideations. Reports increasing depression over the last month and states that he has been drinking about 1/5 of vodka each day. His last drink was this morning. For the last 2 days he has had suicidal ideations with a plan [place] himself [place] the river. Denies any new precipitating events that may have caused this. He had been on psychiatric medications, but states that he stopped them about a month ago due to feeling better. Denies any homicidal ideations. MD Complaint: suicidal ideation, feels depressed - Related Data Home Medications Medication Instructions Recorded Confirmed No Known Home Medications 10/05/24 10/05/24 Allergies Allergy/AdvReac Type Severity Reaction Status Date / Time No Known Allergies Allergy Verified 10/05/24 15:16 Review of Systems ROS Statement: Those systems with pertinent positive or pertinent negative responses have been documented in the HPI. ROS Other: All systems not noted in ROS Statement are negative. Past Medical History Past Medical History: No Reported History History of Any Multi-Drug Resistant Organisms: None Reported Past Surgical History: Back Surgery Past Psychological History: No Psychological Hx Reported Smoking Status: Current every day smoker Past Alcohol Use History: Abuse General Exam Limitations: no limitations General appearance: alert, in no apparent distress Head exam: Present: atraumatic, normocephalic, normal inspection Respiratory exam: Present: normal lung sounds bilaterally. Absent: respiratory distress, wheezes, rales, rhonchi, stridor Cardiovascular Exam: Present: regular rate, normal rhythm Neurological exam: Present: alert, oriented X3, CN II-XII intact Psychiatric exam: Present: depressed, flat affect, suicidal ideation. Absent: homicidal ideation Skin exam: Present: warm, dry, intact, normal color. Absent: rash Course Vital Signs 10/05/24 10/05/24 10:36 15:49 Temperature 98 F 98.1 F Pulse Rate 85 97 Respiratory 16 20 Rate Blood Pressure 157/107 148/93 O2 Sat by Pulse 98 98 Oximetry Medical Decision Making - Medical Decision Making This is a 59 year old male who presents to the emergency department for psychiatric evaluation. Was pt. sent in by a medical professional or institution? @ -No Did you speak to anyone other than the patient for history? @ -No Did you review nursing and triage notes? @ -Yes, and I agree, it is accurate with regards to the patient's symptoms. Were old charts reviewed? @ -No Differential Diagnosis? @ -Differential Mental Health Depression, anxiety, bipolar, psychosis, schizophrenia, borderline personality, situational depression, adjustment disorder, behavioral disorder, brain tumor, malingering, substance abuse, encephalopathy, medication reaction, dementia, hypothyroidism, degenerative neurologic disorder, lupus.... This is not meant to be all-inclusive list EKG interpreted by me (3pts min.)? @ -Not obtained X-rays interpreted by me (1pt min.)? @ -Not obtained CT interpreted by me (1pt min.)? @ -Not obtained U/S interpreted by me (1pt. min.)? @ -Not obtained What testing was considered but not performed? (CT, X-rays, U/S, labs)? Why? @ -None What meds were considered but not given? Why? @ -None Did you discuss the management of the patient with other professionals? @ -Yes, Conrado with EPS, who advised that the patient will be admitted to [facility]. Did you reconcile home meds? @ -No Was smoking cessation discussed for >3mins.? @ -No Was critical care preformed (if so, how long)? @ -No Were there social determinants of health that impacted care today? How? (Homeles sness, low income, unemployed, alcoholism, drug addiction, transportation, low edu. Level, literacy, decrease access to med. care, senior living, rehab)? @ -Alcoholism, contributing to his mental health problems. Was there de-escalation of care discussed even if they declined? (Discuss DNR or withdrawal of care, Hospice)? @ -No What co-morbidities impacted this encounter? (DM, HTN, Smoking, COPD, CAD, Cancer, CVA, Hep., AIDS, mental health diagnosis, sleep apnea, morbid obesity)? @ -Alcoholism, depression Was patient admitted / discharged? @ -Admitted. Patient's BAT was 0.011, which is within the legal limit and he was medically cleared for EPS evaluation. UDS negative. Urinalysis negative for signs of infection. EPS evaluated the patient and advised that he meets criteria for inpatient psychiatric hospitalization due to increasing depression with active suicidal ideations and a plan. Patient admitted to [facility] on a voluntary basis for further psychiatric care. Undiagnosed new problem with uncertain prognosis? @ -None Drug Therapy requiring intensive monitoring for toxicity (Heparin, Nitro, Insulin, Cardizem)? @ -None Were any procedures done? @ -None Diagnosis/symptom? @ -Suicidal ideations Acute, or Chronic, or Acute on Chronic? @ -Acute Uncomplicated (without systemic symptoms) or Complicated (systemic symptoms)? @ -Complicated Side effects of treatment? @ -None Exacerbation, Progression, or Severe Exacerbation] @ -Not applicable Poses a threat to life or bodily function? @ -Yes, can lead to - Lab Data Lab Results 10/05/24 10/05/24 Range/Units 12:59 13:40 Urine Color Light Yellow Urine Appearance Turbid (Clear) Urine pH 7.0 (5.0-8.0) Ur Specific [place] 1.016 (1.001-1.035) Urine Protein Negative (Negative) Urine Glucose (UA) Negative (Negative) Urine Ketones Negative (Negative) Urine Blood Negative (Negative) Urine Nitrite Negative (Negative) Urine Bilirubin Negative (Negative) Urine Urobilinogen <2.0 (<2.0) mg/dL Ur Leukocyte Esterase Negative (Negative) Amorphous Sediment Rare H (None) /hpf Urine Mucus Few H (None) /hpf Urine Opiates Screen Not Detected (NotDetected) Ur Oxycodone Screen Not Detected (NotDetected) Urine Methadone Screen Not Detected (NotDetected) Ur Barbiturates Screen Not Detected (NotDetected) U Tricyclic Antidepress Not Detected (NotDetected) Ur Phencyclidine Scrn Not Detected (NotDetected) Ur Amphetamines Screen Not Detected (NotDetected) U Methamphetamines Scrn Not Detected (NotDetected) U Benzodiazepines Scrn Not Detected (NotDetected) Urine Cocaine Screen Not Detected (NotDetected) U Marijuana (THC) Screen Not Detected (NotDetected) SARS-CoV-2 (PCR) Not Detected (Not Detectd) Disposition Clinical Impression: Depression, Suicidal ideations Disposition: TRANSFER TO PSYCH HOSP/UNIT
[2024-10-05 13:21] LABS: Amphetamine Screen,Urine Not Detected (NotDetected); Barbiturate Screen,Urine Not Detected (NotDetected); Benzodiazepines Screen,Urine Not Detected (NotDetected); Cocaine Screen,Urine Not Detected (NotDetected); Methadone Screen, Urine Not Detected (NotDetected); Opiate Screen,Urine Not Detected (NotDetected); Oxycodone Screen, Urine Not Detected (NotDetected); Phencyclidine Screen,Urine Not Detected (NotDetected); Tricyclic Antidepressant,Urine Not Detected (NotDetected); Urn Cannabinoid Scrn Not Detected (NotDetected)
[2024-10-05 13:41] LABS: Amorphous Sediment,Urine Rare /hpf; Appearance,Urine Turbid (Clear); Bilirubin,Urine Negative (Negative); Blood,Urine Negative (Negative); Color,Urine Light Yellow; Glucose,Urine (UA) Negative (Negative); Ketones,Urine Negative (Negative); Leukocyte Esterase,Urine Negative (Negative); Mucus,Urine Few /hpf; Nitrite,Urine Negative (Negative); Protein,Urine Negative (Negative); Specific Gravity,Urine 1.016 (1.001-1.035); Urobilinogen,Urine <2.0 mg/dL (<2.0)
[2024-10-05] MEDS ORDERED: IBUPROFEN 600 MG TAB PO PRN (17:06)
[2024-10-05] MEDS ORDERED: MAG HYDROX/AL HYDROX/SIMETH 355 ML BOTTLE PO PRN (17:06)
[2024-10-05] MEDS ORDERED: LORazepam 2 MG/ML INJ IM PRN (17:06)
[2024-10-05] MEDS ORDERED: haloperidoL 5 MG TAB PO PRN (17:06)
[2024-10-05] MEDS ORDERED: HALOPERIDOL LACTATE 5 MG/ML 1 ML VIAL IM PRN (17:06)
[2024-10-05] MEDS ORDERED: MAGNESIUM HYDROXIDE 2,400 MG/30 ML CUP PO PRN (17:06)
--- NOTE | 2024-10-05 20:13 | P.CONS ---
History of Present Illness - Reason for Consult Consult date: 10/05/24 medical co-management - Chief Complaint increased anxiety. - History of Present Illness Emeka is a 59 YO m with a pmhx of etoh use disorder and tobacco use. Emeka is currently seen in the mental health unit. He reports that he has had increased levels of anxiety. There are mentions of increased suicidal ideation however the patient denies any suicidal ideation upon my discussion with the sunshine farmer. The patient is currently here for voluntary admission to [facility]. He expresses that he has had increased levels of anxiety over the past few months. He reports he does not take any medications at home. When speaking to Emeka he reports that he has never been diagnosed with primary hypertension hyperlipidemia or type 2 diabetes. He expresses that he drinks 1/5 of vodka along with a 12 pack of beer daily. He also expressed that he uses 1 pack of cigarettes daily. He expresses an interest into alcohol cessation and also endorses he would like to cease tobacco use as well. He expresses that he has been drinking heavily for approximately 12 years he has ceased alcohol in the past and he has been drinking currently for about 5 years. Most recent vital signs reveal a temperature 98.1 heart rate of 97 respiratory rate of 20 blood pressure 140/93 and he is 98% room air. Lab work reveals a urinalysis that is unremarkable. Urine drug screen was negative COVID-19 testing was negative. Review of Systems Pertinent positives and negatives as discussed in HPI, a complete review of systems was performed and all other systems are negative. Past Medical History Past Medical History: No Reported History History of Any Multi-Drug Resistant Organisms: None Reported Past Surgical History: Back Surgery Past Psychological History: No Psychological Hx Reported Smoking Status: Current every day smoker Past Alcohol Use History: Abuse Medications and Allergies Home Medications Medication Instructions Recorded Confirmed Type No Known Home Medications 10/05/24 10/05/24 History Allergies Allergy/AdvReac Type Severity Reaction Status Date / Time No Known Allergies Allergy Verified 10/05/24 15:16 Physical Exam Vitals: Vital Signs Temp Pulse Resp BP Pulse Ox 10/05/24 15:49 98.1 F 97 20 148/93 98 10/05/24 10:36 98 F 85 16 157/107 98 Intake and Output 10/05/24 10/05/24 10/05/24 06:59 14:59 22:59 Other: Weight 90.718 kg General: non toxic, no distress, appears stated age, male Derm: warm, dry Head: atraumatic, normocephalic, symmetric Eyes: EOMI, no lid lag, anicteric ENT: Nose and ears atraumatic, no thrush, no pharyngeal erythema Neck: trachea midline, supple Mouth: no lip lesion, mucus membranes moist Cardiovascular: S1S2 reg, no murm Lungs: clear to ascultation bilateral on room air Abdominal: soft, nontender to palpation, no guarding Ext: no ble edema Neuro: moving all extremeties spontanously Psych: calm and cooperative Results Labs: Abnormal Lab Results - Last 24 Hours (Table) 10/05/24 Range/Units 12:59 Amorphous Sediment Rare H (None) /hpf Urine Mucus Few H (None) /hpf Assessment and Plan Assessment: #) Generalized anxiety disorder. Primary management as per psychiatry team #) ETOH use disorder with impending etoh withdrawal. Emeka endorses drinking 1/5 pint of vodka daily along with a 12 pack of beer. Last drink was yesterday. Monitor for impending etoh withdrawal. Continue ciwa with prn ativan along with librium 20 mg TID. Continue multivitamin/thiamine supplementation. May consider naltrexone upon discharge to help with etoh use disorder #) Tobacco use, tobacco cessation recommended. nicotine patch ordered while inpatient. uses 1 PPD. #) obesity, bmi 32. weight loss recommended Awaiting CBC, CMP, a1c, lipid profile and tsh results Thank you for allowing [facility] to take care of this patient. Please do not hesitate to contact us for any questions Time with Patient: Greater than 30
[2024-10-06 08:36] LABS: Basophils # (A) 0.07 10*3/uL (0.00-0.10); Basophils % (A) 1.1 %; Eosinophils % (A) 3.2 %; HCT 45.3 % (39.6-50.0); HGB 15.8 g/dL (13.0-17.0); Lymphocytes # (A) 1.59 10*3/uL (0.90-5.00); Lymphocytes % (A) 25.2 %; MCH 31.2 pg (27.0-32.0); MCHC 34.9 g/dL (32.0-37.0); MCV 89.5 fL (80.0-97.0); Mean Platelet Volume 9.5 fL (9.5-12.2); Monocytes # (A) 0.48 10*3/uL (0.20-1.00); Monocytes % (A) 7.6 %; Neutrophils # (A) 3.94 10*3/uL (1.80-7.70); Neutrophils % (A) 62.4 %; Platelet Count 251 10*3/uL (140-440); RBC 5.06 10*6/uL (4.40-5.60); RDW 13.3 % (11.5-14.5); WBC 6.31 10*3/uL (4.50-10.00)
[2024-10-06 09:00] LABS: ALT 40 U/L (4-49); AST 49 U/L (17-59); African American GFR (CKD) >90 (>60 ml/min/1.73 sqM); Albumin 3.6 g/dL (3.5-5.0); Alkaline Phosphatase 71 U/L (38-126); Anion Gap 5 mmol/L; Blood Urea Nitrogen 20 mg/dL (9-20); Carbon Dioxide 22 mmol/L (22-30); Chloride 108 mmol/L (98-107); Glucose 100 mg/dL (74-99); Non-African American GFR(CKD) >90 (>60 ml/min/1.73 sqM); Potassium 4.7 mmol/L (3.5-5.1); Sodium 135 mmol/L (137-145); Total Bilirubin 0.9 mg/dL (0.2-1.3); Total Protein 6.8 g/dL (6.3-8.2)
[2024-10-06] MEDS: NICOTINE 14MG/24HR PATCH TRANSDERM SCH (09:45)
[2024-10-06] MEDS: MULTIVITAMINS, THERA 1 EACH TAB PO SCH (09:46)
[2024-10-06] MEDS: FOLIC ACID 1 MG TAB PO SCH (09:46)
[2024-10-06] MEDS: THIAMINE 100 MG TAB PO SCH (09:46)
[2024-10-06] MEDS: SERTRALINE 50 MG TAB PO SCH (12:46)
[2024-10-06] MEDS: GABAPENTIN 100 MG CAP PO SCH (12:46)
[2024-10-06] MEDS: LORazepam 1 MG TAB PO PRN (12:46)
--- NOTE | 2024-10-06 13:53 | P.HP ---
Psychiatric H&P - . H&P Date: 10/06/24 History & Physical: Allergies Allergy/AdvReac Type Severity Reaction Status Date / Time No Known Allergies Allergy Verified 10/05/24 15:16 Vital Signs Temp 97.5 F L 10/06/24 11:05 Pulse 82 10/06/24 12:47 Resp 18 10/06/24 11:05 BP 124/87 10/06/24 12:47 Pulse Ox 98 10/06/24 11:05 FiO2 Intake & Output 10/05/24 10/06/24 10/06/24 18:59 06:59 18:59 Weight 87.572 kg Laboratory Last Values WBC 6.31 10*3/uL (4.50-10.00) 10/06/24 08:05 RBC 5.06 10*6/uL (4.40-5.60) 10/06/24 08:05 Hgb 15.8 g/dL (13.0-17.0) 10/06/24 08:05 Hct 45.3 % (39.6-50.0) 10/06/24 08:05 MCV 89.5 fL (80.0-97.0) 10/06/24 08:05 MCH 31.2 pg (27.0-32.0) 10/06/24 08:05 MCHC 34.9 g/dL (32.0-37.0) 10/06/24 08:05 Plt Count 251 10*3/uL (140-440) 10/06/24 08:05 MPV 9.5 fL (9.5-12.2) 10/06/24 08:05 Immature Gran % (Auto) 0.5 % 10/06/24 08:05 Neutrophils % 62.4 % 10/06/24 08:05 Lymphocytes % 25.2 % 10/06/24 08:05 Monocytes % 7.6 % 10/06/24 08:05 Eosinophils % 3.2 % 10/06/24 08:05 Basophils % 1.1 % 10/06/24 08:05 Immature Gran # 0.03 10*3/uL (0.00-0.04) 10/06/24 08:05 Neutrophils # 3.94 10*3/uL (1.80-7.70) 10/06/24 08:05 Lymphocytes # 1.59 10*3/uL (0.90-5.00) 10/06/24 08:05 Monocytes # 0.48 10*3/uL (0.20-1.00) 10/06/24 08:05 Eosinophils # 0.20 10*3/uL (0.04-0.35) 10/06/24 08:05 Basophils # 0.07 10*3/uL (0.00-0.10) 10/06/24 08:05 Sodium 135 mmol/L (137-145) L 10/06/24 08:05 Potassium 4.7 mmol/L (3.5-5.1) 10/06/24 08:05 Chloride 108 mmol/L (98-107) H 10/06/24 08:05 Carbon Dioxide 22 mmol/L (22-30) 10/06/24 08:05 Anion Gap 5 mmol/L 10/06/24 08:05 BUN 20 mg/dL (9-20) 10/06/24 08:05 Creatinine 0.81 mg/dL (0.66-1.25) 10/06/24 08:05 Est GFR (CKD-EPI)AfAm >90 (>60 ml/min/1.73 sqM) 10/06/24 08:05 Est GFR (CKD-EPI)NonAf >90 (>60 ml/min/1.73 sqM) 10/06/24 08:05 Glucose 100 mg/dL (74-99) H 10/06/24 08:[address] Glu mg/dL 111 mg/dL 10/06/24 08:05 Hemoglobin A1c 5.5 % (<=6.0) 10/06/24 08:05 Calcium 9.0 mg/dL (8.4-10.2) 10/06/24 08:05 Total Bilirubin 0.9 mg/dL (0.2-1.3) 10/06/24 08:05 AST 49 U/L (17-59) 10/06/24 08:05 ALT 40 U/L (4-49) 10/06/24 08:05 Alkaline Phosphatase 71 U/L (38-126) 10/06/24 08:05 Total Protein 6.8 g/dL (6.3-8.2) 10/06/24 08:05 Albumin 3.6 g/dL (3.5-5.0) 10/06/24 08:05 TSH 1.040 mIU/L (0.465-4.680) 10/06/24 08:05 Urine Color Light Yellow 10/05/24 12:59 Urine Appearance Turbid (Clear) 10/05/24 12:59 Urine pH 7.0 (5.0-8.0) 10/05/24 12:59 Ur Specific Braman 1.016 (1.001-1.035) 10/05/24 12:59 Urine Protein Negative (Negative) 10/05/24 12:59 Urine Glucose (UA) Negative (Negative) 10/05/24 12:59 Urine Ketones Negative (Negative) 10/05/24 12:59 Urine Blood Negative (Negative) 10/05/24 12:59 Urine Nitrite Negative (Negative) 10/05/24 12:59 Urine Bilirubin Negative (Negative) 10/05/24 12:59 Urine Urobilinogen <2.0 mg/dL (<2.0) 10/05/24 12:59 Ur Leukocyte Esterase Negative (Negative) 10/05/24 12:59 Amorphous Sediment Rare /hpf (None) H 10/05/24 12:59 Urine Mucus Few /hpf (None) H 10/05/24 12:59 Urine Opiates Screen Not Detected (NotDetected) 10/05/24 12:59 Ur Oxycodone Screen Not Detected (NotDetected) 10/05/24 12:59 Urine Methadone Screen Not Detected (NotDetected) 10/05/24 12:59 Ur Barbiturates Screen Not Detected (NotDetected) 10/05/24 12:59 U Tricyclic Antidepress Not Detected (NotDetected) 10/05/24 12:59 Ur Phencyclidine Scrn Not Detected (NotDetected) 10/05/24 12:59 Ur Amphetamines Screen Not Detected (NotDetected) 10/05/24 12:59 U Methamphetamines Scrn Not Detected (NotDetected) 10/05/24 12:59 U Benzodiazepines Scrn Not Detected (NotDetected) 10/05/24 12:59 Urine Cocaine Screen Not Detected (NotDetected) 10/05/24 12:59 U Marijuana (THC) Screen Not Detected (NotDetected) 10/05/24 12:59 SARS-CoV-2 (PCR) Not Detected (Not Detectd) 10/05/24 13:40 10/06/24 13:46 IDENTIFYING DATA: Patient is a 59-year-old male, homeless and living in a motel, on SSD CHIEF COMPLAINT: SI, depression, alcohol abuse HPI: Patient presented to the hospital with increasing depression and SI. Per EPS, "Cl laying in bed awake A/O x4 brought self in due to increased depression over last 12 months and SI w plan to drown self in river. Cl reports " Things are bad, all I do is drink too much." Cl reports feeling depressed their entire life and that the symptoms have increased over the last two years with suicidal ideation the last 2-3 days. Cl is unemployed on SSDI and reports low motivation,loss of interest,low energy, poor self care, and disheveled. Cl states " I have been having darker thoughts." Cl report hx of sobriety for 12 yrs, "but that was 10 yrs ago." Cl presents guarded, irritable, anxious, hopeless,helpless, and frustrated. Cl reports hx of heroin overdose in which they were "brain " and suffered "short term memory loss" a few years ago. Cl reports consuming a 1/5th of whiskey a day and that their first drink was at age 12. " My parents owned a [employer] so we would just sneak it out." Judgement/insight/impulse control : poor ADLS: poor sleep/kp: Poor. Cl reports only sleeping 2 hours a night for the last 30 days. Medical issues: none reported. Cl reports no PCP. Medications: none reported. Hx of MH tx: [place] [facility] in past. Hx of in pat: 1x [facility] 11/20. Hx of ERYN: ETOH F/U age 12. Daily 1/5th of whiskey. BAT: .011 UDS: negative. Cl denies other substance use. Hx of in pat rehab: [facility]. Hx of trauma: Cl only mentions OD. Hx of self harm: 1 previous suicide attempt. Hx of legal: none reported Denies: HI/SVITLANA/DEL". Patient seen and evaluated on the unit and was agreeable with speaking to teletypewriter installer in office. He was A&Ox2 to self and location not time to which he states this has been an issue ever since he overdosed on fentanyl roughly 6 months ago, reportedly suffering from short-term memory loss. He claims he is independent with his ADLs however he has been homeless for several weeks now, living in a motel for the past week. He states ultimately being here so that he can detox from alcohol, reporting that he has been drinking 1/5/day for the past few weeks. Despite his desire to detox, he appeared precontemplative in his decision to change and go to rehab, reporting his desire to decrease his alcohol use at 2/10 in severity. He states he has gone to rehab 5-6 times previously. He reports sleep difficulties, appetite changes, low energy, concentration issues, feeling hopeless. He is currently reporting suicidal ideations. He is also reporting anxiety that appears more generalized in nature, racing thoughts and restlessness. Patient denies any homicidal ideations intent or plan. At this time patient denies any auditory or visual hallucinations. Patient denies any flight of ideas racing thoughts and increased in goal directed behavior. Patient admits to using 1/5 of hard liquor per day, smoking 1 pack/day, denying any other substances. PAST PSYCHIATRIC HISTORY: Patient has a history of alcohol use disorder, alcohol induced depressive disorder. Patient denies being on any psychiatric medications. Patient reports 2 previous inpatient hospitalizations most recent being at this facility back in 10/2023. Patient denies any psychiatric outpatient follow-up. Patient reports 1 remote suicide attempt back in the s. PMH: as per ER note ALLERGIES: as per EMR SUBSTANCE USE HISTORY: As per HPI FAMILY PSYCHIATRIC/SUBSTANCE USE HISTORY: Patient states his father abused alcohol that his mother suffered from some form of mental illness SOCIAL HISTORY: Patient completed his GED and is currently on SSD. He is homeless and has been living in a motel for the past week. He has 2 children. He denied any legal issues. MENTAL STATUS EXAM: General Appearance: Patient appears to be slightly older than stated age is alert, directable, and attempts to cooperate. Patient appears to have poor hygiene and grooming. Behavior: Patient is seated without any agitated behavior. Speech: Patient's speech is fluent and nonpressured. Mood/Affect: Patient reports their mood is depressed, affect is congruent and constricted. Suicidality/Homicidality: Patient denies having any homicidal ideation intent or plan. He reports suicidal ideations Perceptions: Patient denies any visual hallucinations and denies any auditory hallucinations Though content/process: There is no evidence of any delusional thought content and thought process is linear. Memory and concentration: AOX3, grossly intact for the purposes of this session. Can spell "WORLD" backwards Judgment and insight: Poor STRENGTHS/WEAKNESSES: strength is that patient is resilient. Weakness is that patient has poor judgment, alcohol abuse and is impulsive INTELLECT: Below average IMPRESSIONS: Substance-induced depressive disorder Alcohol use disorder, severe in withdrawal Nicotine dependence PLAN: -Patient is admitted under voluntary status to MHU for stabilization of psychiatric symptoms and safety. Patient has signed adult voluntary form and and is placed in patient's chart. -Medications : Start Zoloft 50 mg daily for depression, gabapentin 100 mg twice daily for anxiety related to alcohol withdrawal, doxepin 10 mg at bedtime for insomnia. Discussed naltrexone with patient however given his desire to con tinue drinking upon discharge this will be held -Ativan and Haldol PRN for agitation/aggression -Started thiamine, MVM for etoh use -CIWA protocol with Ativan PRN for ETOH withdrawal. Scheduled Librium for alcohol withdrawal with plan to taper. -Patient was counselled on substance abuse and desired to cut back on use-Will offer patient subtance use rehab however he declined at this time -Patient was informed of the risks, benefits and side effects of the medication and patient verbally consented to taking the medications. Patient signed med consent form and was placed in chart. -Internal Medicine consult to perform medical evaluation and physical. -NRT -nicotine patch -SW on board for discharge planning. Encourage patient to participate in groups to work on coping skills.
[2024-10-06 15:20] LABS: Chol/HDL Ratio 2.05 Ratio; VLDL Calculation 15.96 mg/dL (5.00-40.00)
[2024-10-06] MEDS: DOXEPIN 10 MG CAP PO SCH (21:45)
[2024-10-07] MEDS: SERTRALINE 50 MG TAB PO STA (10:32)
--- NOTE | 2024-10-07 13:46 | P.PN ---
Progress Note - Text Progress Note Date: 10/07/24 Interval History: Patient was seen in bed and was directable and agreeable to speak with typewriter assembler in the office. He reports feeling depressed today, rating this an 8/10 in severity. He has not noticed any significant changes in terms of his depression however does report his withdrawal symptoms are better. He did receive Ativan overnight with a CIWA of 10. He reports suicidal ideations, no plan at this time. He has not been attending groups, mostly isolative to his room. At this time patient denies any homicidal ideations, intent or plan. Patient denies any auditory, visual hallucinations and denies any paranoia or delusions. Patient denies any side effects from the medications and has been compliant with meds. Mental Status Exam: General Appearance: Patient appears to be stated age is alert, directable, and cooperative. Behavior: Patient is calmly seated without any agitated behavior. Speech: Patient's speech is fluent and nonpressured. Mood/Affect: Mood is depressed, affect is congruent and constricted. Suicidality/Homicidality: Patient denies having any homicidal ideation intent or plan. Patient reports suicidal ideations Perceptions: Patient denies any visual hallucinations and denies any auditory hallucinations Though content/process: There is no evidence of any delusional thought content and thought process is linear. Memory and concentration: AOX3, grossly intact for the purposes of this session Judgment and insight: Improving mildly Assessment Substance-induced depressive disorder Alcohol use disorder, severe in withdrawal Nicotine dependence Plan: -Patient continues to meet criteria for inpatient psychiatric admission for symptom stabilization and safety. Patient has signed adult voluntary form and medication consent and was placed in patient's chart. -Medications: Increase Zoloft to 100 mg daily for depression, continue gabapentin 100 mg twice daily for anxiety related to alcohol withdrawal, doxepin 10 mg at bedtime for insomnia, add melatonin 10 mg at bedtime for insomnia -When necessary Ativan and Haldol for agitation/aggression. -Labs: Grossly WNL -NRT - nicotine patch -CIWA protocol with Ativan PRN for ETOH withdrawal. Continue Librium with a plan to taper -SW on board for discharge planning. Encouraged the patient to participate in milieu.
[2024-10-07] MEDS: LORazepam 1 MG TAB PO PRN (21:03)
[2024-10-07] MEDS: MELATONIN 5 MG TABLET PO SCH (21:03)
[2024-10-08] MEDS: SERTRALINE 100 MG TAB PO SCH (08:54)
--- NOTE | 2024-10-08 12:30 | P.PN ---
Progress Note - Text Progress Note Date: 10/08/24 Interval History: Patient was seen in bed and was directable and agreeable to speak with poem writer in the office. He reports feeling the same as yesterday still reporting high depressive symptoms, largely isolative to his room. He reports some restlessness overnight with sleep but does report improvements in terms of his alcohol withdrawal symptoms. He continues to report suicidal ideations, no plan or intent. He has not been active in groups but was encouraged. At this time patient denies any homicidal ideations, intent or plan. Patient denies any auditory, visual hallucinations and denies any paranoia or delusions. Patient denies any side effects from the medications and has been compliant with meds. Mental Status Exam: General Appearance: Patient appears to be stated age is alert, directable, and cooperative. Behavior: Patient is calmly seated without any agitated behavior. Speech: Patient's speech is fluent and nonpressured. Mood/Affect: Mood is improving mildly, affect is congruent and constricted. Suicidality/Homicidality: Patient denies having any homicidal ideation intent or plan. Patient reports suicidal ideations Perceptions: Patient denies any visual hallucinations and denies any auditory hallucinations Though content/process: There is no evidence of any delusional thought content and thought process is linear. Memory and concentration: AOX3, grossly intact for the purposes of this session Judgment and insight: Improving mildly Assessment Substance-induced depressive disorder Alcohol use disorder, severe in withdrawal Nicotine dependence Plan: -Patient continues to meet criteria for inpatient psychiatric admission for symptom stabilization and safety. Patient has signed adult voluntary form and medication consent and was placed in patient's chart. -Medications: Increase Zoloft to 150 mg daily tomorrow for depression, continue gabapentin 100 mg twice daily for anxiety related to alcohol withdrawal, doxepin 10 mg at bedtime for insomnia, melatonin 10 mg at bedtime for insomnia -When necessary Ativan and Haldol for agitation/aggression. -Labs: Grossly WNL -NRT - nicotine patch -CIWA protocol with Ativan PRN for ETOH withdrawal. Continue with Librium taper, decreasing to twice daily tomorrow with an ultimate discontinuation over the weekend -SW on board for discharge planning. Encouraged the patient to participate in milieu.
[2024-10-08] MEDS: ACETAMINOPHEN TAB 325 MG TAB PO PRN (14:18)
[2024-10-08] MEDS: LORazepam 1 MG TAB PO PRN (21:22)
[2024-10-09] MEDS: SERTRALINE 50 MG TAB PO SCH (08:50)
--- NOTE | 2024-10-09 10:50 | P.PN ---
Progress Note - Text Progress Note Date: 10/09/24 Dictation was produced using [employer] dictation software. Please excuse any grammatical, word or spelling errors. Interval history: Patient was seen in his room and was directable and agreeable to speak with the literary writer in the office for psychiatric follow-up. The patient states that he is feeling a bit anxious today, states that his sleep was not that great last night, states that he used to sleep better when he was home, and he is adjusting to the unit. States that anxiety and depression are at the moderate to high side, he rated anxiety at 8/10, and depression at 7/10. He denied any current SI/HI or self harm, states that "not today" states that the last time he had those thoughts was few days ago. Denied any current AVH. States that he used alcohol just before coming to the hospital, he denied any current withdrawal symptoms. Denied any previous withdrawal symptoms or seizures. Reported that he was in rehab in the past and would like to go back. States that he has been taking his medications, denied any current side effects. Mental status exam: General Appearance: Patient appears to be stated age is alert, directable, and cooperative. Behavior: Patient is calmly seated without any agitated behavior. Speech: Patient's speech is fluent and nonpressured. Mood/Affect: Mood is improving mildly, affect is congruent and constricted. Suicidality/Homicidality: Patient denies having any homicidal ideation intent or plan. Denied any current suicidal ideations Perceptions: Patient denies any visual hallucinations and denies any auditory hallucinations Though content/process: There is no evidence of any delusional thought content and thought process is linear. Memory and concentration: AOX3, grossly intact for the purposes of this session Judgment and insight: Improving mildly Assessment Substance-induced depressive disorder Alcohol use disorder, severe in withdrawal Nicotine dependence Assessment/Plan: Continue with current diagnosis. Patient continues to meet criteria for inpatient psychiatric admission for symptom stabilization and safety. Patient will be maintained on current psychotropic medication regimen which includes Zoloft 150 mg p.o. daily, which was increased on Friday, gabapentin 100 mg p.o. twice daily, doxepin 10 milligram p.o. at bedtime and melatonin 10 mg p.o. hs, patient denied any current side effects. Monitor for medication compliance and for any psychotropic medication side effects. Will continue to monitor ongoing response to treatment. Encouraged participation in milieu. Psychoeducation was provided into substance use and patient is willing to attend substance use rehab. right of way worker to help arranging for rehabilitation following this hospitalization
--- NOTE | 2024-10-10 10:35 | P.PN ---
Progress Note - Text Progress Note Date: 10/10/24 Dictation was produced using [employer] dictation software. Please excuse any grammatical, word or spelling errors. Interval history: Patient was seen in his room and was directable and agreeable to speak with the parts data writer in the office for psychiatric follow-up. The patient states that he is feeling okay, states that he did not sleep well last night, was restless, states that he has been eating and drinking fluid. States that depression and anxiety are at the moderate to high side, he rated both at 8/10. He denied any current SI/HI or self harm. Denied any current AVH. States that he feel safe in the unit, and is getting along well with everyone. States that alcohol withdrawal symptoms are getting better. He has been taking his medications, denied any side effects aside from feeling drowsy at times. Motivational psychoeducation was provided and patient continues to agree to attend substance use rehab following this hospitalization. Mental status exam: General Appearance: Patient appears to be stated age is alert, directable, and cooperative. Behavior: Patient is calmly seated without any agitated behavior. Speech: Patient's speech is fluent and nonpressured. Mood/Affect: Mood is improving mildly, affect is congruent and constricted. Suicidality/Homicidality: Patient denies having any homicidal ideation intent or plan. Denied any current suicidal ideations Perceptions: Patient denies any visual hallucinations and denies any auditory hallucinations Though content/process: There is no evidence of any delusional thought content and thought process is linear. Memory and concentration: AOX3, grossly intact for the purposes of this session Judgment and insight: Improving mildly Assessment Substance-induced depressive disorder Alcohol use disorder, severe in withdrawal Nicotine dependence Assessment/Plan: Continue with current diagnosis. Patient continues to meet c silviaeria for inpatient psychiatric admission for symptom stabilization and safety. Patient will be maintained on current psychotropic medication regimen which includes Zoloft 150 mg p.o. daily, which was increased on Friday, gabapentin 100 mg p.o. twice daily, doxepin 10 milligram p.o. at bedtime and melatonin 10 mg p.o. hs, patient denied any current side effects. Monitor for medication compliance and for any psychotropic medication side effects. Will continue to monitor ongoing response to treatment. Encouraged participation in milieu. Psychoeducation/motivational psychotherapy was provided into substance use and patient is willing to attend substance use rehab. construction ironworker to help arranging for rehabilitation following this hospitalization
--- NOTE | 2024-10-11 12:39 | P.PN ---
Progress Note - Text Progress Note Date: 10/11/24 Interval History: Patient was seen in bed and was directable and agreeable to speak with publicity writer in the room. He continues to be largely isolative to room however he has been attending but no participation in groups. He states his withdrawal symptoms are mild however he does report some improvement in terms of depression, rating this a 6/10 in severity today. He reports sleeping okay and that the weekend went well. He reports suicidal ideations today, lessening in intensity, no plan or intent today. He states he will be discharged to a snf upon discharge as he is homeless. At this time patient denies any homicidal ideations, intent or plan. Patient denies any auditory, visual hallucinations and denies any paranoia or delusions. Patient denies any side effects from the medications and has been compliant with meds. Mental Status Exam: General Appearance: Patient appears to be stated age is alert, directable, and cooperative. He has questionable grooming and hygiene Behavior: Patient is calmly laying without any agitated behavior. Speech: Patient's speech is fluent and nonpressured. Mood/Affect: Mood is improving mildly, affect is congruent and constricted. Suicidality/Homicidality: Patient denies having any homicidal ideation intent or plan. Patient reports suicidal ideations, lessening in intensity Perceptions: Patient denies any visual hallucinations and denies any auditory hallucinations Though content/process: There is no evidence of any delusional thought content and thought process is linear. Memory and concentration: AOX3, grossly intact for the purposes of this session Judgment and insight: Improving mildly Assessment Substance-induced depressive disorder Alcohol use disorder, severe withdrawal Nicotine dependence Plan: -Patient continues to meet criteria for inpatient psychiatric admission for symptom stabilization and safety. Patient has signed adult voluntary form and medication consent and was placed in patient's chart. -Medications: Continue Zoloft 150 mg daily for depression, gabapentin 100 mg twice daily for anxiety, doxepin 10 mg at bedtime for insomnia, melatonin 10 mg at bedtime for insomnia -When necessary Ativan and Haldol for agitation/aggression. -Labs: Reviewed -NRT - nicotine patch -CIWA protocol with Ativan PRN for ETOH withdrawal. Librium has been tapered off -SW on board for discharge planning. Encouraged the patient to participate in milieu. Anticipate discharge in 1-2 days to snf as patient has declined rehab
[2024-10-12] MEDS: SERTRALINE 100 MG TAB PO SCH (10:22)
--- NOTE | 2024-10-12 11:58 | P.PN ---
Progress Note - Text Progress Note Date: 10/12/24 Interval History: Patient was seen in bed and was directable and agreeable to speak with journalists and other writers in the [place] privately. He reports some difficulties falling asleep overnight. He continues to be isolative to his room, not active in group. He does report his suicidal ideations are better, lessening in frequency. He denies any withdrawal symptoms today however does report some anxiety and received as needed Ativan for this. He declined going to rehab upon discharge and states he will return to a penitentiary given his homelessness. At this time patient denies any homicidal ideations, intent or plan. Patient denies any auditory, visual hallucinations and denies any paranoia or delusions. Patient denies any side effects from the medications and has been compliant with meds. Mental Status Exam: General Appearance: Patient appears to be stated age is alert, directable, and cooperative. Behavior: Patient is calmly standing without any agitated behavior. Speech: Patient's speech is fluent and nonpressured. Mood/Affect: Mood is improving mildly, affect is congruent and constricted. Suicidality/Homicidality: Patient denies having any homicidal ideation intent or plan. Patient reports suicidal ideations, mild in intensity, lessening in frequency Perceptions: Patient denies any visual hallucinations and denies any auditory hallucinations Though content/process: There is no evidence of any delusional thought content and thought process is linear and logical. Memory and concentration: AOX3, grossly intact for the purposes of this session Judgment and insight: Improving mildly Assessment Substance-induced depressive disorder Alcohol use disorder, severe in withdrawal Nicotine dependence Plan: -Patient continues to meet criteria for inpatient psychiatric admission for symptom stabilization and safety. Patient has signed adult voluntary form and medication consent and was placed in patient's chart. -Medications: Increase Zoloft to 200 mg daily today for depression/anxiety, gabapentin 100 mg twice daily for anxiety, doxepin 10 mg at bedtime for insomnia, melatonin 10 mg at bedtime for insomnia -When necessary Ativan and Haldol for agitation/aggression. -Labs: Reviewed -NRT - nicotine patch -CIWA protocol with Ativan PRN for ETOH withdrawal. Librium has been tapered off -SW on board for discharge planning. Encouraged the patient to participate in milieu. Anticipate discharge to penitentiary tomorrow as patient declined rehab
[2024-10-12 23:14] VITALS: RESP 16
[2024-10-13 10:07] VITALS: BP 111/81; PULSE 77; TEMP 97.3
--- NOTE | 2024-10-13 13:03 | P.DS ---
Providers Date of admission: 10/05/24 15:34 Expected date of discharge: 10/13/24 Attending physician: Yuli Jackson MD Consults: 10/05/24 17:06 Consult Physician Routine Consulting Provider: Alison Physician Consult Reason/Comments: H&P and medical Do you want consulting provider notified?: Yes Primary care physician: Stated None - Discharge Diagnosis(es) (1) Substance or medication-induced depressive disorder Status: Acute Priority: High (2) Alcohol use disorder, severe, dependence Status: Acute Priority: High (3) Nicotine dependence Status: Acute Priority: Low Hospital Course: Admission HPI: Admission note was completed by food writer "Patient presented to the hospital with increasing depression and SI. Per EPS, "Cl laying in bed awake A/O x4 brought self in due to increased depression over last 12 months and SI w plan to drown self in river. Cl reports " Things are bad, all I do is drink too much." Cl reports feeling depressed their entire life and that the symptoms have increased over the last two years with suicidal ideation the last 2-3 days. Cl is unemployed on SSDI and reports low motivation,loss of interest,low energy, poor self care, and disheveled. Cl states " I have been having darker thoughts." Cl report hx of sobriety for 12 yrs, "but that was 10 yrs ago." Cl presents guarded, irritable, anxious, hopeless,helpless, and frustrated. Cl reports hx of heroin overdose in which they were "brain " and suffered "short term memory loss" a few years ago. Cl reports consuming a 1/5th of whiskey a day and that their first drink was at age 12. 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 Cl reports only sleeping 2 hours a night for the last 30 days. Medical issues: none reported. Cl reports no PCP. Medications: none reported. Hx of MH tx: [place] [facility] in past. Hx of in pat: 1x [facility] U 11/20. Hx of ERYN: ETOH F/U age 12. Daily 1/5th of whiskey. BAT: .011 UDS: negative. Cl denies other substance use. Hx of in pat rehab: [place]/[facility]. Hx of trauma: Cl only mentions OD. Hx of self harm: 1 previous suicide attempt. Hx of legal: none reported Denies: HI/SVITLANA/DEL". Patient seen and evaluated on the unit and was agreeable with speaking to food writer in office. He was A&Ox2 to self and location not time to which he states this has been an issue ever since he overdosed on fentanyl roughly 6 months ago, reportedly suffering from short-term memory loss. He claims he is independent with his ADLs however he has been homeless for several weeks now, living in a motel for the past week. He states ultimately being here so that he can detox from alcohol, reporting that he has been drinking 1/5/day for the past few weeks. Despite his desire to detox, he appeared precontemplative in his decision to change and go to rehab, reporting his desire to decrease his alcohol use at 2/10 in severity. He states he has gone to rehab 5-6 times previously. He reports sleep difficulties, appetite changes, low energy, concentration issues, feeling hopeless. He is currently reporting suicidal ideations. He is also reporting anxiety that appears more generalized in nature, racing thoughts and restlessness. Patient denies any homicidal ideations intent or plan. At this time patient denies any auditory or visual hallucinations. Patient denies any flight of ideas racing thoughts and increased in goal directed behavior. Patient admits to using 1/5 of hard liquor per day, smoking 1 pack/day, denying any other substances." Hospital course: Upon admission to the unit patient was directable and agreeable to commence treatment and signed adult voluntary form.. Patient got along well with other patients on the unit and followed unit protocol however was largely isolative, not participating in groups. Patient was compliant with the medications and denied any side effects throughout hospital course. Patient was started on Zoloft and this was increased to 200 mg daily for depression/anxiety, gabapentin 100 mg twice daily for anxiety related to alcohol use, doxepin 10 mg at bedtime for insomnia, melatonin 10 mg at bedtime for insomnia. Patient was also seen by medical team for history and physical exam. Throughout the course of the hospitalization patient gradually improved with regards to mood, anxiety, sleep and returned back to their baseline level of functioning. On the day of discharge patient denied any suicidal or homicidal ideations intent or plan denied any auditory or visual hallucinations. The patient denied any access to guns or weapons. Patient denied any paranoia and did not endorse any delusions. Patient does have a significant history of substance abuse and was counseled on abstaining from all substances including alcohol and marijuana. Patient was offered however declined inpatient substance-abuse rehab. Patient was also counseled on the medications and need for regular compliance and was encouraged to follow-up with their outpatient appointment for mental health and also for primary care. Patient to be discharged to skilled nursing will follow-up with [facility]. Mental status exam: General Appearance: Patient appears to be stated age is alert, pleasant, and cooperative. Patient is in no acute distress and has improved hygiene and grooming Behavior: Patient is calmly seated without any agitated behavior. Speech: Patient's speech is fluent and nonpressured. Mood/Affect: Patient reports their mood is "better", affect is congruent and euthymic. Suicidality/Homicidality: Patient denies having any suicidal or homicidal ideation intent or plan. Perceptions: Patient denies any auditory or visual hallucinations. Though content/process: There is no evidence of any delusional thought content and thought process is linear and goal-directed. Memory and concentration: AOX3, grossly intact for the purposes of this session. Can spell "WORLD" backwards correctly. Judgment and insight: Chronically poor, however has improved with guarded prognosis Impression: Substance-induced depressive disorder Alcohol use disorder, severe Nicotine dependence Plan: -Continue with discharge today as patient has improved and stabilized psychiatrically and is not currently an imminent threat to themself and/or others. Patient will remain at chronically elevated risk for harm to self and/or others due to their impulsivity and substance abuse. -Continue medications: Zoloft 200 mg daily, gabapentin 100 mg twice daily, doxepin 10 mg at bedtime, melatonin 10 mg at bedtime -Patient was counseled on the need for medication compliance and appropriate follow-up at mental health and also primary care for medical issues. Patient verbalized understanding and agreed. -Social work to help coordinate patients discharge today. also to ensure safe home environment that guns/weapons are either removed from the home or locked away. Social work also to arrange for patients follow up appointments with [facility] for psychiatric care along with follow up with primary care provider. -Patient counseled on abstaining from recreational drugs and marijuana and alcohol. Was informed/educated on the adverse effects on their physical and mental health. Patient verbally agreed and understood. Patient was offered substance abuse treatment however declined at this time. -Patient was instructed to return to the hospital or seek immediate medical care if their psychiatric or medical symptoms do worsen or reoccur. Abnormal Labs 10/05/24 10/06/24 12:59 08:05 Sodium 135 L Chloride 108 H Glucose 100 H HDL Cholesterol 66.00 H Amorphous Sediment Rare H Urine Mucus Few H Allergies Allergy/AdvReac Type Severity Reaction Status Date / Time No Known Allergies Allergy Verified 10/05/24 15:16 Vital Signs Temp 97.3 F L 10/13/24 09:00 Pulse 77 10/13/24 09:00 Resp 16 10/13/24 09:00 BP 111/81 10/13/24 09:00 Pulse Ox 98 10/13/24 09:00 FiO2 Patient Condition at Discharge: Stable Plan - Discharge Summary Discharge Rx Participant: No New Discharge Prescriptions: New Folic Acid 1 mg PO DAILY 30 Days #30 tab Gabapentin [Neurontin] 100 mg PO BID 30 Days #60 cap Doxepin [SINEquan] 10 mg PO HS 30 Days #30 cap Melatonin 10 mg PO HS 30 Days #60 tab Multivitamins, Thera [Multivitamin (formulary)] 1 each PO DAILY 30 Days #30 tab Thiamine [Vitamin B-1] 100 mg PO DAILY 30 Days #30 tab Sertraline [Zoloft] 200 mg PO DAILY 30 Days #60 tab Discharge Medication List Doxepin [SINEquan] 10 mg PO HS 30 Days #30 cap 10/13/24 [Rx] Folic Acid 1 mg PO DAILY 30 Days #30 tab 10/13/24 [Rx] Gabapentin [Neurontin] 100 mg PO BID 30 Days #60 cap 10/13/24 [Rx] Melatonin 10 mg PO HS 30 Days #60 tab 10/13/24 [Rx] Multivitamins, Thera [Multivitamin (formulary)] 1 each PO DAILY 30 Days #30 tab 10/13/24 [Rx] Sertraline [Zoloft] 200 mg PO DAILY 30 Days #60 tab 10/13/24 [Rx] Thiamine [Vitamin B-1] 100 mg PO DAILY 30 Days #30 tab 10/13/24 [Rx] Follow up Appointment(s)/Referral(s): [place] [facility] [Outside] - 10/15/24 12:30 pm (with Lamar) [place] [place] [facility] [NON-STAFF] - 1 Week Patient Instructions/Handouts: Depression (DC), Abuse of Alcohol (DC) Activity/Diet/Wound Care/Special Instructions: [facility] Discharge Info Avoid the use of street drugs and alcohol. Take all medications as prescribed. When you are in need of refills on your medications, please contact your outpatient medical provider and/or outpatient psychiatrist. Please go to your scheduled outpatient appointments for aftercare treatment. If symptoms return or become worse, call the crisis line at or and/or visit the nearest emergency room for assistance. National Suicide and Crisis Lifeline - call or text 075 Discharge/Stand Alone Forms: NA Meetings in [place], AA Meetings [place] Discharge Disposition: HOME SELF-CARE
== END 2024-10-13 12:10 | disposition home or self-care (01) | DRG 897 ==
LOC: EC 10:33 → 3MHU 15:34
PROVIDERS: ADMIT Psychiatry & Neurology Psychiatry; ATTEND Psychiatry & Neurology Psychiatry
DX: F19.94 Other psychoactive substance use, unspecified with psychoactive substance-induced mood disorder (principal); F10.239 Alcohol dependence with withdrawal, unspecified; Z59.01 Sheltered homelessness; R45.851 Suicidal ideations; F32.A Depression, unspecified; E66.9 Obesity, unspecified; F10.24 Alcohol dependence with alcohol-induced mood disorder; F17.210 Nicotine dependence, cigarettes, uncomplicated; F41.1 Generalized anxiety disorder; G47.00 Insomnia, unspecified; Z56.0 Unemployment, unspecified; Z79.899 Other long term (current) drug therapy; Z91.51 Personal history of suicidal behavior; Z91.52 Personal history of nonsuicidal self-harm; Z71.41 Alcohol abuse counseling and surveillance of alcoholic; Z11.52 Encounter for screening for COVID-19; Z68.32 Body mass index [BMI] 32.0-32.9, adult
CPT/HCPCS: 80053; 80061; 80306; 81001; 82075; 83036; 84443; 85025; 87635; 99285

== ENCOUNTER 2024-10-16 21:34 | Observation (INO) | payer MEDICARE, OTHER ==
--- NOTE | 2024-10-16 21:59 | ED ---
General Adult HPI - General Stated complaint: ETOH Time Seen by Provider: 10/16/24 21:39 - History of Present Illness Initial comments: Patient is a 59-year-old man history of alcoholism presenting for alcohol intoxication. Per EMS report police were called and patient was found wandering outside and appeared confused. Patient endorses drinking 1/5 of alcohol today. He was just discharged from this facility after being admitted for alcohol intoxication and SI. Patient denies any illicit drug use. He denies additional complaints. Denies SI to myself. Denies injury today or hitting his head. Denies additional complaints such as chest pain, difficulty breathing or abdominal pain changes in vision, new numbness or weakness., - Related Data Previous Rx's Medication Instructions Recorded Doxepin [SINEquan] 10 mg PO HS 30 Days #30 cap 10/13/24 Folic Acid 1 mg PO DAILY 30 Days #30 tab 10/13/24 Gabapentin [Neurontin] 100 mg PO BID 30 Days #60 cap 10/13/24 Melatonin 10 mg PO HS 30 Days #60 tab 10/13/24 Multivitamins, Thera [Multivitamin 1 each PO DAILY 30 Days #30 tab 10/13/24 (formulary)] Sertraline [Zoloft] 200 mg PO DAILY 30 Days #60 tab 10/13/24 Thiamine [Vitamin B-1] 100 mg PO DAILY 30 Days #30 tab 10/13/24 Allergies Allergy/AdvReac Type Severity Reaction Status Date / Time No Known Allergies Allergy Verified 10/16/24 21:50 Review of Systems ROS Statement: Those systems with pertinent positive or pertinent negative responses have been documented in the HPI. ROS Other: All systems not noted in ROS Statement are negative. Past Medical History Past Medical History: No Reported History History of Any Multi-Drug Resistant Organisms: None Reported Past Surgical History: Back Surgery Past Anesthesia/Blood Transfusion Reactions: No Reported Reaction Past Psychological History: No Psychological Hx Reported Smoking Status: Current every day smoker Past Alcohol Use History: Abuse General Exam - General Exam Comments Initial Comments: PE: CONSTITUTIONAL: [no apparent distress, well appearing, disheveled, still strongly of alcohol] SKIN: [warm, dry, no jaundice, hives or petechiae] EYES:[ pupils are equally round, extraocular movements intact without nystagmus, clear conjunctiva, non-icteric sclera] HENT: [normocephalic, atraumatic, moist mucus membranes, oropharynx clear without exudates] NECK: , [Full range of motion, normal appearance] PULMONARY: [clear to auscultation without wheezes, rhonchi, or rales, normal excursion, no accessory muscle use and no stridor] CARDIOVASCULAR:[ regular rate, rhythm, normal S1 and S2. No appreciated murmurs, rubs or gallops. Extremities well-perfused no lower extremity edema] GASTROINTESTINAL: [soft, active bowel sounds throughout, non-tender, non-dist ended, no palpable masses, no rebound or guarding. No hepatosplenomegaly] MUSCULOSKELETAL: [Extremities have no gross deformity, no signs of injury NEUROLOGIC: [Oriented to self, place, knows that tomorrow was Easter, it is September and the president is [place], though believes it is 2020, GCS 14, otherwise normal mentation and speech. Moves all extremities x 4 without motor or sensory deficit] PSYCHIATRIC:[ _pleasant mood and affect, thought process is clear and linear, with exception of being unsure of year] Course Vital Signs 10/16/24 10/16/24 10/17/24 21:37 23:46 01:44 Temperature 97.8 F 97.7 F Pulse Rate 74 72 90 Respiratory 17 16 17 Rate Blood Pressure 130/77 110/75 123/75 O2 Sat by Pulse 95 95 95 Oximetry Medical Decision Making - Medical Decision Making Was pt. sent in by a medical professional or institution (, PA, SALES AGENT [employer]ENDING [employer]ICE, urgent care, hospital, or [facility]...) When possible be specific @ -[No] Did you speak to anyone other than the patient for history (EMS, parent, family, police, friend...)? What history was obtained from this source @ -[No] Did you review nursing and triage notes (agree or disagree)? Why? @ -[I reviewed nursing and triage notes] Were old charts reviewed (outside hosp., previous admission, EMS record, old EKG, old radiological studies, urgent care reports/EKG's, [facility] records)? Report findings @ -[Medical records reviewed]-Patient was recently discharged this facility after presenting on 10/05/2024, for alcoholic intoxication and SI,. He was discharged on 10/13/2024 Differential Diagnosis (chest pain, altered mental status, abdominal pain women, abdominal pain men, vaginal bleeding, weakness, fever, dyspnea, syncope, headache, dizziness, GI bleed, back pain, seizure, CVA, palpatations, mental health, musculoskeletal)? @ -[not applicable] EKG interpreted by me (3pts min.). @ -Sinus rhythm, rate 72 bpm NV interval 135 ms QT/QTc 4 6/429 ms, normal axis, no ST elevations or depressions, artifact present in V2, no arrhythmia X-rays interpreted by me (1pt min.). @ -[None done] CT interpreted by me (1pt min.). @ -[None done] U/S interpreted by me (1pt. min.). @ -[None done] What testing was considered but not performed or refused? (CT, X-rays, U/S, labs)? Why? @ -[None] What meds were considered but not given or refused? Why? @ -[None] Did you discuss the management of the patient with other professionals (professionals i.e. , PA, SALES AGENT [employer]ING [employer], lab, RT, psych nurse, social secretary, bagel maker, teacher, chief creative officer, medical case worker)? Give summary @ -[No] Was smoking cessation discussed for >3mins.? @ -[No] Was critical care preformed (if so, how long)? @ -[No] Were there social determinants of health that impacted care today? How? (Homelessness, low income, unemployed, alcoholism, drug addiction, transp ortation, low edu. Level, literacy, decrease access to med. care, fdc, rehab)? @Homelessness, alcohol dependence Was there de-escalation of care discussed even if they declined (Discuss DNR or withdrawal of care, Hospice)? @ -[No] What co-morbidities impacted this encounter? (DM, HTN, Smoking, COPD, CAD, Cancer, CVA, ARF, Chemo, Hep., AIDS, mental health diagnosis, sleep apnea, morbid obesity)? @ -As above Was patient admitted / discharged? Hospital course, mention meds given and route, prescriptions, significant lab abnormalities, going to OR and other pertinent info. @ -[hospital course] patient is 59-year-old gentleman history of alcoholism, homelessness, presenting today for alcohol intoxication. On assessment patient does appear intoxicated, endorses drinking 1/5 of alcohol today. His head is atraumatic and denies any recent injuries/head injuries. He is oriented to self, place, month, knows where president is and oriented to situation. He does think the year is 2020 and 2021. He has no focal neurologic deficits. No additional complaints. Blood alcohol on breathalyzer is 0.164. Patient denied SI to me but then endorsed SI to RN. Patient medical cleared at 2:45 AM for EPS evaluation given SI. I was alerted by RN that patient is complaining chest pain. On my assessment patient states he has sharp left-sided chest pain that is nonradiating. States it has been going on "for a few hours" however patient has been in the ER for 2 and half hours and denies chest pain on arrival when I asked him about chest pain. Patient states it is sharp in nature and nonradiating. He has not had pain like this before. He currently rates it as an 8 out of 10 however is res ting comfortably and does not appear to be in any pain or acute distress. Denies any cough or hemoptysis, shortness of breath or diaphoresis. Denies lower extremity swelling. No history ACS. Patient's mother had a heart attack at age 56. Father a stroke in his 70s. Patient has no history of hypertension, high cholesterol or diabetes. Never has a heart it had a heart attack before. Endorses associated nausea and vomiting however when asked the patient when he was vomiting he states "an hour ago", however has not vomited in the ED and has an empty bag of chips at bedside. Then states he vomited earlier today, NBNB. No abdominal pain. While awaiting sobriety and medical clearance, will obtain CXR, EKG, troponin, lipase, basic labs. Labs are significant for elevated lipase of 1186, AST/ALT are slightly elevated at 61/65, total bilirubin 0.5, troponin within normal limits, blood alcohol 216, otherwise labs unremarkable, though I suspect elevated LFTs and pancreatitis are secondary to alcohol use, will obtain ultrasound of the gallbladder. Ultrasound the gallbladder was obtained and did not show dilation of the common bile duct however did show concerns for dilation of the pancreatic duct of 0.3 cm recommended MRCP. We do not have gastroenterology at this facility so patient may need to be transferred to facility with GI. Currently, maintenance fluids are running, patient's pain is being controlled with morphine, CIWA orders are in place should patient start having symptoms of alcohol withdrawal. Case discussed with Dr. Junior GI, Fariha Lozano, who states pancreatic duct of 3 mm is wnl and based on imaging results and history, emergent MRCP not indicated at this point and can be performed outpatient. I feel this is reasonable, as I suspect labs are more likely secondary to alcoholic pancreatitis. Undiagnosed new problem with uncertain prognosis? @ -[No] Drug Therapy requiring intensive monitoring for toxicity (Heparin, Nitro, Insulin, Cardizem)? @ -[No] Were any procedures done? @ -[No] Diagnosis/symptom? @Pancreatitis, chest pain, alcohol intoxication, SI Acute, or Chronic, or Acute on Chronic? @Acute Uncomplicated (without systemic symptoms) or Complicated (systemic symptoms)? @ -[Complicated Side effects of treatment? @ -[No] Exacerbation, Progression, or Severe Exacerbation? @ -[No] Poses a threat to life or bodily function? How? (Chest pain, [place], [place], pneumonia, PE, COPD, DKA, ARF, appy, cholecystitis, CVA, Diverticulitis, Homicidal, Suicidal, threat to staff... and all critical care pts) @ -[No] - Lab Data Result diagrams: 10/17/24 00:20 10/17/24 00:20 Lab Results 10/17/24 10/17/24 10/17/24 Range/Units 00:20 00:20 00:20 WBC 9.61 (4.50-10.00) 10*3/uL RBC 5.21 (4.40-5.60) 10*6/uL Hgb 16.6 (13.0-17.0) g/dL Hct 47.3 (39.6-50.0) % MCV 90.8 (80.0-97.0) fL MCH 31.9 (27.0-32.0) pg MCHC 35.1 (32.0-37.0) g/dL Plt Count 280 (140-440) 10*3/uL MPV 8.8 L (9.5-12.2) fL Immature Gran % (Auto) 0.5 % Neutrophils % 59.8 % Lymphocytes % 30.6 % Monocytes % 7.8 % Eosinophils % 0.8 % Basophils % 0.5 % Immature Gran # 0.05 H (0.00-0.04) 10*3/uL Neutrophils # 5.74 (1.80-7.70) 10*3/uL Lymphocytes # 2.94 (0.90-5.00) 10*3/uL Monocytes # 0.75 (0.20-1.00) 10*3/uL Eosinophils # 0.08 (0.04-0.35) 10*3/uL Basophils # 0.05 (0.00-0.10) 10*3/uL PT 10.9 (10.0-12.5) sec INR 1.0 (<1.2) APTT 25.3 (22.0-30.0) sec Sodium 143 (137-145) mmol/L Potassium 4.5 (3.5-5.1) mmol/L Chloride 106 (98-107) mmol/L Carbon Dioxide 27 (22-30) mmol/L Anion Gap 10 mmol/L BUN 14 (9-20) mg/dL Creatinine 0.81 (0.66-1.25) mg/dL Est GFR (CKD-EPI)AfAm >90 (>60 ml/min/1.73 sqM) Est GFR (CKD-EPI)NonAf >90 (>60 ml/min/1.73 sqM) Glucose 101 H (74-99) mg/dL Calcium 9.1 (8.4-10.2) mg/dL Phosphorus (2.5-4.5) mg/dL Magnesium 2.3 (1.6-2.3) mg/dL Total Bilirubin 0.5 (0.2-1.3) mg/dL AST 61 H (17-59) U/L ALT 65 H (4-49) U/L Alkaline Phosphatase 95 (38-126) U/L Troponin I (0.000-0.034) ng/mL NT-Pro-B Natriuret Pep 64 pg/mL Total Protein 7.7 (6.3-8.2) g/dL Albumin 4.3 (3.5-5.0) g/dL Lipase 1186 H (23-300) U/L Serum Alcohol mg/dL 10/17/24 10/17/24 Range/Units 00:20 01:05 WBC (4.50-10.00) 10*3/uL RBC (4.40-5.60) 10*6/uL Hgb (13.0-17.0) g/dL Hct (39.6-50.0) % MCV (80.0-97.0) fL MCH (27.0-32.0) pg MCHC (32.0-37.0) g/dL Plt Count (140-440) 10*3/uL MPV (9.5-12.2) fL Immature Gran % (Auto) % Neutrophils % % Lymphocytes % % Monocytes % % Eosinophils % % Basophils % % Immature Gran # (0.00-0.04) 10*3/uL Neutrophils # (1.80-7.70) 10*3/uL Lymphocytes # (0.90-5.00) 10*3/uL Monocytes # (0.20-1.00) 10*3/uL Eosinophils # (0.04-0.35) 10*3/uL Basophils # (0.00-0.10) 10*3/uL PT (10.0-12.5) sec INR (<1.2) APTT (22.0-30.0) sec Sodium (137-145) mmol/L Potassium (3.5-5.1) mmol/L Chloride (98-107) mmol/L Carbon Dioxide (22-30) mmol/L Anion Gap mmol/L BUN (9-20) mg/dL Creatinine (0.66-1.25) mg/dL Est GFR (CKD-EPI)AfAm (>60 ml/min/1.73 sqM) Est GFR (CKD-EPI)NonAf (>60 ml/min/1.73 sqM) Glucose (74-99) mg/dL Calcium (8.4-10.2) mg/dL Phosphorus 2.5 (2.5-4.5) mg/dL Magnesium (1.6-2.3) mg/dL Total Bilirubin (0.2-1.3) mg/dL AST (17-59) U/L ALT (4-49) U/L Alkaline Phosphatase (38-126) U/L Troponin I <0.012 (0.000-0.034) ng/mL NT-Pro-B Natriuret Pep pg/mL Total Protein (6.3-8.2) g/dL Albumin (3.5-5.0) g/dL Lipase (23-300) U/L Serum Alcohol 216 H* mg/dL Disposition Clinical Impression: Suicidal ideation, Chest pain, Alcoholic pancreatitis Disposition: ADMITTED IP TO THIS HOSP Condition: Stable Referrals: None,Stated [Primary Care Provider] - 1-2 days
[2024-10-17] MEDS: ASPIRIN 81 MG PO STA (00:07)
[2024-10-17] MEDS: ACETAMINOPHEN TAB 325 MG TAB PO STA (00:07)
[2024-10-17 00:33] LABS: Basophils # (A) 0.05 10*3/uL (0.00-0.10); Basophils % (A) 0.5 %; Eosinophils # (A) 0.08 10*3/uL (0.04-0.35); Eosinophils % (A) 0.8 %; HCT 47.3 % (39.6-50.0); HGB 16.6 g/dL (13.0-17.0); Lymphocytes # (A) 2.94 10*3/uL (0.90-5.00); Lymphocytes % (A) 30.6 %; MCH 31.9 pg (27.0-32.0); MCHC 35.1 g/dL (32.0-37.0); MCV 90.8 fL (80.0-97.0); Mean Platelet Volume 8.8 fL (9.5-12.2); Monocytes # (A) 0.75 10*3/uL (0.20-1.00); Monocytes % (A) 7.8 %; Neutrophils # (A) 5.74 10*3/uL (1.80-7.70); Neutrophils % (A) 59.8 %; Platelet Count 280 10*3/uL (140-440); RBC 5.21 10*6/uL (4.40-5.60); RDW 14.1 % (11.5-14.5); WBC 9.61 10*3/uL (4.50-10.00)
[2024-10-17 00:45] LABS: Partial Thromboplastin Time 25.3 sec (22.0-30.0); Prothrombin Time 10.9 sec (10.0-12.5)
[2024-10-17 00:46] LABS: ALT 65 U/L (4-49); AST 61 U/L (17-59); African American GFR (CKD) >90 (>60 ml/min/1.73 sqM); Albumin 4.3 g/dL (3.5-5.0); Alkaline Phosphatase 95 U/L (38-126); Anion Gap 10 mmol/L; Blood Urea Nitrogen 14 mg/dL (9-20); Calcium 9.1 mg/dL (8.4-10.2); Carbon Dioxide 27 mmol/L (22-30); Chloride 106 mmol/L (98-107); Glucose 101 mg/dL (74-99); Lipase 1186 U/L (23-300); Magnesium 2.3 mg/dL (1.6-2.3); Non-African American GFR(CKD) >90 (>60 ml/min/1.73 sqM); Potassium 4.5 mmol/L (3.5-5.1); Sodium 143 mmol/L (137-145); Total Bilirubin 0.5 mg/dL (0.2-1.3); Total Protein 7.7 g/dL (6.3-8.2)
[2024-10-17] MEDS: MORPHINE SULFATE 2 MG/ML SYRINGE IVP STA (00:53)
[2024-10-17 00:55] LABS: NT-Pro-B-Type Natriuretic Pept 64 pg/mL
[2024-10-17] MEDS: ONDANSETRON 4 MG/2 ML VIAL IVP STA (00:55)
[2024-10-17] MEDS: MULTIVITAMINS, THERA 1 EACH TAB PO STA (00:59)
[2024-10-17] MEDS: FOLIC ACID 1 MG TAB PO STA (01:00)
[2024-10-17] MEDS: THIAMINE 100 MG/ML 2 ML VIAL IM STA (01:00)
[2024-10-17 01:15] LABS: Phosphorus 2.5 mg/dL (2.5-4.5)
--- NOTE | 2024-10-17 01:39 | XR ---
EXAM: XR Chest, 2 Views CLINICAL HISTORY: ITS.REASON XR Reason: Chest Pain TECHNIQUE: Frontal and lateral views of the chest. COMPARISON: No previous studies. FINDINGS: Lungs: Minimal scarring at the left lung base. No consolidative changes or pleural effusions. Pleural space: See above. Heart: Heart is normal in size. No cardiomegaly. Mediastinum: Unremarkable. Normal mediastinal contour. Bones/joints: Mild to moderate degenerative disc disease of the thoracic spine and dextroscoliosis. No acute fracture. Other findings: There is hypoaeration. IMPRESSION: 1. Minimal scarring at the left lung base. 2. No consolidative changes or pleural effusions.
[2024-10-17] MEDS: MORPHINE SULFATE 4 MG/ML SYRINGE IVP STA (01:42)
--- NOTE | 2024-10-17 01:44 | US ---
EXAM: US Abdomen Limited, Gallbladder CLINICAL HISTORY: ITS.REASON US Reason: pancreatitis, slight elevation in LFTs, alcoholism TECHNIQUE: Real-time ultrasound of the right upper quadrant with image documentation. COMPARISON: No previous studies. FINDINGS: Liver: The liver measures 14.1 cm. Gallbladder: Negative ultrasound Ramirez sign. No gallstones. Common bile duct: Common bile duct measures 0.26 cm. No stones. No dilation. Pancreas: Pancreatic duct measures 0.3 cm. Obscuration of the tail of the pancreas. Right kidney: Unremarkable. Right kidney measures 9.4 x 5 x 4.7 cm. No renal calculus or hydronephrosis. IMPRESSION: 1. Obscuration of the tail of the pancreas. 2. Dilatation of the pancreatic duct. MRCP study is advised to further assessment. 3. No gallstones.
[2024-10-17] MEDS ORDERED: LORazepam 2 MG/ML INJ IV PRN ×3 (01:58)
[2024-10-17] MEDS ORDERED: ONDANSETRON 4 MG/2 ML VIAL IVP PRN (02:21)
[2024-10-17] MEDS ORDERED: NALOXONE 0.4 MG/ML 1 ML VIAL IV PRN (02:21)
[2024-10-17] MEDS ORDERED: CALCIUM CARBONATE 500 MG CHEWABLE PO PRN (02:21)
[2024-10-17] MEDS: DEXTROSE 5%-0.45% NACL 1,000 ML IV SCH (02:33)
[2024-10-17] MEDS: IBUPROFEN 400 MG TAB PO PRN (02:43)
[2024-10-17] MEDS: MORPHINE SULFATE 2 MG/ML SYRINGE IV PRN (03:44)
[2024-10-17] MEDS ORDERED: ACETAMINOPHEN TAB 325 MG TAB PO PRN (06:00)
[2024-10-17] MEDS: ENOXAPARIN 40 MG/0.4 ML SYRINGE SQ SCH (08:27)
[2024-10-17] MEDS: PANTOPRAZOLE 40 MG/10 ML VIAL IV SCH (08:27)
[2024-10-17] MEDS ORDERED: LORazepam 1 MG/0.5 ML VIAL IV PRN (13:31)
--- NOTE | 2024-10-17 14:26 | P.HPIM ---
History of Present Illness H&P Date: 10/17/24 History of present illness: 59-year-old male patient with past medical history significant for alcohol use disorder who presented to ER with alcohol intoxication. Patient was found wandering outside and appeared confused, police was called, patient reported drinking 1/5 of alcohol daily, patient was recently discharged from the hospital for being admitted for alcohol intoxication and suicidal ideations. Patient complaining of nausea and abdominal pain. Patient denied any headache, head injury, sore throat, productive cough, chest pain, palpitation, dysuria urgency frequency weakness or numbness of the extremities. Patient is afebrile, heart rate 91, respiratory rate 18, blood pressure 98/62, saturating 93% on room air. CBC is unremarkable. BMP unremarkable. AST 61, ALT 65. Normal bilirubin, normal triphosphate A. Troponin negative x 3. proBNP 64. Lipase elevated 1186 Serum alcohol level on presentation was 216. Ultrasound abdomen showed obscuration of the tail of the pancreas, dilatation of pancreatic duct, no gallstones. Assessment and plan: Acute pancreatitis: Presented with alcohol intoxication, elevated lipase, abdominal pain, nausea Ultrasound abdomen showed obscuration of the tail of the pancreas, dilatation of pancreatic duct, no gallstones. Elevated lipase more than 1100 Monitor CMP MRCP General Surgery consult. Alcohol intoxication with high risk of withdrawal: Monitor with neurochecks CIWA protocol, as needed Ativan Thiamine, folic acid, multivitamin Case management consult Xiomara ideations: Recently discharged from the hospital for suicidal ideations Suicide precautions Psychiatry consult. DVT prophylaxis SCD Monitor vital signs and labs Labs and medication were reviewed. Continue same treatment. Further recommendations as per clinical course of the patient PHYSICAL EXAMINATION: GENERAL: The patient is A&O x3, NAD HEENT: EOMI, Sclerae anicteric, Moist Mucous membranes Neck: Supple, Non tender, No JVD PULMONARY: Equal breath souds B/L, No wheezing, No crackles. CARDIOVASCULAR: S1, S2 present. No murmurs, rubs, or gallops. ABDOMEN: Soft, LEFT upper quadrant tender, nondistended, normoactive bowel sounds. No guarding or rebound tenderness. MUSCULOSKELETAL: No edema, No cyanosis. No clubbing. Normal ROM. Intact peripheral pulses. NEUROLOGICAL: CN 2-12 grossly intact. No FND REVIEW OF SYSTEMS: CONSTITUTIONAL: No fever, no malaise, no fatigue. HEENT: No recent visual problems or hearing problems. Denied any sore throat. CARDIOVASCULAR: No chest pain, orthopnea, PND, no palpitations, no syncope. PULMONARY: No shortness of breath, no cough, no hemoptysis. GASTROINTESTINAL: Complaining of nausea and abdominal pain. NEUROLOGICAL: No headaches, no weakness, no numbness. HEMATOLOGICAL: Denies any bleeding or petechiae. GENITOURINARY: Denies any burning micturition, frequency, or urgency. MUSCULOSKELETAL/RHEUMATOLOGICAL: Denies any joint pain, swelling, or any muscle pain. ENDOCRINE: Denies any polyuria or polydipsia. The rest of the 14-point review of systems is negative. Dictation was produced using [employer] dictation software. please excuse any grammatical, word or spelling errors. Past Medical History Past Medical History: No Reported History History of Any Multi-Drug Resistant Organisms: None Reported Past Surgical History: Back Surgery Past Anesthesia/Blood Transfusion Reactions: No Reported Reaction Past Psychological History: Bipolar Smoking Status: Current every day smoker Past Alcohol Use History: Abuse Past Drug Use History: None Reported Medications and Allergies Home Medications Medication Instructions Recorded Confirmed Type Doxepin [SINEquan] 10 mg PO DIRECTED 10/17/24 10/17/24 History Folic Acid 1 mg PO DIRECTED 10/17/24 10/17/24 History Gabapentin [Neurontin] 100 mg PO DIRECTED 10/17/24 10/17/24 History Melatonin 10 mg PO DIRECTED 10/17/24 10/17/24 History Multivitamins, Thera [Multivitamin 1 tab PO DIRECTED 10/17/24 10/17/24 History (formulary)] Sertraline [Zoloft] 200 mg PO DIRECTED 10/17/24 10/17/24 History Thiamine [Vitamin B-1] 100 mg PO DIRECTED 10/17/24 10/17/24 History Allergies Allergy/AdvReac Type Severity Reaction Status Date / Time No Known Allergies Allergy Verified 10/17/24 10:34 Physical Exam Vitals: Vital Signs Temp Pulse Pulse Resp BP BP Pulse Ox 10/17/24 07:00 98.1 F 91 18 98/62 93 L 10/17/24 03:23 98.0 F 82 18 106/70 94 L 10/17/24 03:10 85 17 95 10/17/24 01:44 97.7 F 90 17 123/75 95 10/16/24 23:46 72 16 110/75 95 10/16/24 21:37 97.8 F 74 17 130/77 95 Intake and Output 10/16/24 10/17/24 10/17/24 22:59 06:59 14:59 Other: # Voids 1 Weight 90.718 kg 90.718 kg Results CBC & Chem 7: 10/17/24 00:20 10/17/24 00:20 Labs: Abnormal Lab Results - Last 24 Hours (Table) 10/17/24 10/17/24 10/17/24 Range/Units 00:20 00:20 01:05 MPV 8.8 L (9.5-12.2) fL Immature Gran # 0.05 H (0.00-0.04) 10*3/uL Glucose 101 H (74-99) mg/dL AST 61 H (17-59) U/L ALT 65 H (4-49) U/L Lipase 1186 H (23-300) U/L Serum Alcohol 216 H* mg/dL Thrombosis Risk Factor Assmnt - Choose All That Apply Any of the Below Risk Factors Present?: No Other Risk Factors: No Other congenital or acquired thrombophilia - If yes, enter type in comment: No Thrombosis Risk Factor Assessment Level: Very Low Risk
[2024-10-17] MEDS: LACTATED RINGERS 1,000 ML IV SCH (15:04)
[2024-10-18] MEDS: THIAMINE 100 MG TAB PO SCH (08:48)
[2024-10-18 09:09] LABS: Basophils # (A) 0.05 X 10*3/uL (0.00-0.10); Basophils % (A) 0.8 %; Eosinophils # (A) 0.19 X 10*3/uL (0.04-0.35); Eosinophils % (A) 2.9 %; HCT 43.7 % (39.6-50.0); HGB 14.7 g/dL (13.0-17.0); Lymphocytes # (A) 1.94 X 10*3/uL (0.90-5.00); Lymphocytes % (A) 30.1 %; MCH 31.1 pg (27.0-32.0); MCHC 33.6 g/dL (32.0-37.0); MCV 92.6 FL (80.0-97.0); Mean Platelet Volume 9.1 FL (9.5-12.2); Monocytes # (A) 0.61 X 10*3/uL (0.20-1.00); Monocytes % (A) 9.5 %; NRBC Per 100 WBC 0 X 10*3/uL (0.00-0.01); Neutrophils # (A) 3.64 X 10*3/uL (1.80-7.70); Neutrophils % (A) 56.4 %; Platelet Count 252 X 10*3/uL (140-440); RBC 4.72 X 10*6/uL (4.40-5.60); RDW 13.9 % (11.5-14.5); WBC 6.45 X 10*3/uL (4.50-10.00)
[2024-10-18 09:18] LABS: ALT 46 U/L (10-49); AST 42 U/L (14-35); Albumin 3.3 g/dL (3.8-4.9); Albumin/Globulin Ratio 1.38 Ratio (1.60-3.17); Alkaline Phosphatase 87 U/L (41-126); BUN/Creat Ratio 13.56 Ratio (12.00-20.00); Blood Urea Nitrogen 12.2 mg/dL (9.0-27.0); Calcium 8.5 mg/dL (8.7-10.3); Carbon Dioxide 25.5 mmol/L (21.6-31.8); Chloride 106 mmol/L (96-109); Globulin 2.4 g/dL (1.6-3.3); Glucose 86 mg/dL (70-110); Lipase 68 U/L (14-60); Magnesium 2.1 mg/dL (1.5-2.4); Phosphorus 2.7 mg/dL (2.4-5.1); Sodium 138 mmol/L (135-145); Total Bilirubin 0.8 mg/dL (0.3-1.2); Total Protein 5.7 g/dL (6.2-8.2)
--- NOTE | 2024-10-18 10:34 | P.GSCN ---
History of Present Illness Consult date: 10/18/24 History of present illness: CHIEF COMPLAINT: Abdominal pain HISTORY OF PRESENT ILLNESS: This is a 59-year-old male who presented to the hospital with evidence of alcohol intoxication. Also reports abdominal pain epigastric area and was found to have evidence of acute pancreatitis. They did a gallbladder ultrasound which shows no evidence of gallstones did report di lation of the pancreatic duct. Patient scheduled for MRCP today. Patient is tolerating the clear liquid diet. He reports that he is had this epigastric abdominal pain for about 2 weeks. Denies any prior history of pancreatitis. He does admit to having some nausea and vomiting prior to admission. He does have a known history of alcohol use disorder. Surgical service consulted for pancreatitis. PAST MEDICAL HISTORY: Bipolar, alcohol use disorder PAST SURGICAL HISTORY: Back surgery MEDICATIONS: See below ALLERGIES: See below SOCIAL HISTORY: No illicit drug use. Heavy alcohol use. Nicotine dependence. REVIEW OF SYSTEMS: CONSTITUTIONAL: Denies fever or chills. HEENT: Denies blurred vision, vision changes, or eye pain. Denies hemoptysis CARDIOVASCULAR: Denies chest pain or pressure. RESPIRATORY: No shortness of breath. GASTROINTESTINAL: See HPI for pertinent findings HEMATOLOGIC: Denies bleeding disorders. GENITOURINARY: Denies any blood in urine or increased urinary frequency. SKIN: Denies pruitis. Denies rash. PHYSICAL EXAM: VITAL SIGNS: Reviewed GENERAL: Well-developed in no acute distress. HEENT: No sclera icterus. Extraocular movements grossly intact. Moist buccal mucosa. Head is atraumatic, normocephalic. No nasal drainage. ABDOMEN: Soft. Nondistended. Mild epigastric tenderness with palpation NEUROLOGIC: Alert and oriented. Cranial nerves II through XII grossly intact. LABORATORY DATA: WBC is 6.45 Hgb 14.7 platelets 252 Sodium 138 potassium 4.0 creatinine 0.9 Total bilirubin 0.8 AST 61-42 ALT 65-46 alk phos 87 Lipase 1186 down to 68 Alcohol level elevated at 216 IMAGING: Gallbladder ultrasound reports obscuration of the tail of the pancreas. Dilatation of the pancreatic duct. No gallstones. ASSESSMENT: 1. Acute pancreatitis. Dilatation of the pancreatic duct noted on ultrasound imaging with no evidence of gallstones. 2. History of alcohol use disorder PLAN: -Follow-up on MRCP results that is scheduled for today -HIDA scan ordered -Continue clear liquid diet for now -Repeat labs in a.m. -Medical management of alcohol withdrawal -Continue IV fluids and pain management Physician Radius Corner Machine Operator note has been reviewed by physician. Signing provider agrees with the documented findings, assessment, and plan of care. Past Medical History Past Medical History: No Reported History History of Any Multi-Drug Resistant Organisms: None Reported Past Surgical History: Back Surgery Past Anesthesia/Blood Transfusion Reactions: No Reported Reaction Past Psychological History: Bipolar Smoking Status: Current every day smoker Past Alcohol Use History: Abuse Past Drug Use History: None Reported Medications and Allergies Home Medications Medication Instructions Recorded Confirmed Type Doxepin [SINEquan] 10 mg PO DIRECTED 10/17/24 10/17/24 History Folic Acid 1 mg PO DIRECTED 10/17/24 10/17/24 History Gabapentin [Neurontin] 100 mg PO DIRECTED 10/17/24 10/17/24 History Melatonin 10 mg PO DIRECTED 10/17/24 10/17/24 History Multivitamins, Thera [Multivitamin 1 tab PO DIRECTED 10/17/24 10/17/24 History (formulary)] Sertraline [Zoloft] 200 mg PO DIRECTED 10/17/24 10/17/24 History Thiamine [Vitamin B-1] 100 mg PO DIRECTED 10/17/24 10/17/24 History Allergies Allergy/AdvReac Type Severity Reaction Status Date / Time No Known Allergies Allergy Verified 10/17/24 10:34 Surgical - Exam Vital Signs Temp Pulse Resp BP Pulse Ox 97.8 F 74 17 130/77 95 10/16/24 21:37 10/16/24 21:37 10/16/24 21:37 10/16/24 21:37 10/16/24 21:37 Results - Labs 10/18/24 04:26 10/18/24 04:26 Abnormal Lab Results - Last 24 Hours (Table) 10/18/24 10/18/24 Range/Units 04:26 04:26 MPV 9.1 L (9.5-12.2) FL Calcium 8.5 L (8.7-10.3) mg/dL AST 42 H (14-35) U/L Total Protein 5.7 L (6.2-8.2) g/dL Albumin 3.3 L (3.8-4.9) g/dL Albumin/Globulin Ratio 1.38 L (1.60-3.17) Ratio Lipase 68 H (14-60) U/L Diabetes panel 10/18/24 Range/Units 04:26 Sodium 138 (135-145) mmol/L Potassium 4.0 (3.5-5.5) mmol/L Chloride 106 (96-109) mmol/L Carbon Dioxide 25.5 (21.6-31.8) mmol/L BUN 12.2 (9.0-27.0) mg/dL Creatinine 0.9 (0.6-1.5) mg/dL Glucose 86 (70-110) mg/dL Calcium 8.5 L (8.7-10.3) mg/dL AST 42 H (14-35) U/L ALT 46 (10-49) U/L Alkaline Phosphatase 87 (41-126) U/L Total Protein 5.7 L (6.2-8.2) g/dL Albumin 3.3 L (3.8-4.9) g/dL Calcium panel 10/18/24 Range/Units 04:26 Calcium 8.5 L (8.7-10.3) mg/dL Phosphorus 2.7 (2.4-5.1) mg/dL Albumin 3.3 L (3.8-4.9) g/dL Pituitary panel 10/18/24 Range/Units 04:26 Sodium 138 (135-145) mmol/L Potassium 4.0 (3.5-5.5) mmol/L Chloride 106 (96-109) mmol/L Carbon Dioxide 25.5 (21.6-31.8) mmol/L BUN 12.2 (9.0-27.0) mg/dL Creatinine 0.9 (0.6-1.5) mg/dL Glucose 86 (70-110) mg/dL Calcium 8.5 L (8.7-10.3) mg/dL Adrenal panel 10/18/24 Range/Units 04:26 Sodium 138 (135-145) mmol/L Potassium 4.0 (3.5-5.5) mmol/L Chloride 106 (96-109) mmol/L Carbon Dioxide 25.5 (21.6-31.8) mmol/L BUN 12.2 (9.0-27.0) mg/dL Creatinine 0.9 (0.6-1.5) mg/dL Glucose 86 (70-110) mg/dL Calcium 8.5 L (8.7-10.3) mg/dL Total Bilirubin 0.8 (0.3-1.2) mg/dL AST 42 H (14-35) U/L ALT 46 (10-49) U/L Alkaline Phosphatase 87 (41-126) U/L Total Protein 5.7 L (6.2-8.2) g/dL Albumin 3.3 L (3.8-4.9) g/dL
[2024-10-18] MEDS: LORazepam 1 MG/0.5 ML VIAL IV PRN ×2 (11:40→22:28)
--- NOTE | 2024-10-18 14:18 | P.CN ---
Psychiatric Consult - . Consult date: 10/18/24 Consult:: 10/18/24 13:46 IDENTIFYING DATA: This patient is a 59-year-old male, currently homeless, admitted medically for etoh intox and SI. REASON FOR REFERRAL: Psychiatry was consulted for suicidal ideations HISTORY OF PRESENT ILLNESS: The patient presented to the hospital initially for alcohol intoxication, was brought in by police as he was found wandering confused. Patient was also endorsing chest pain, found to have pancreatitis. Blood alcohol level was 216, LFTs appear to be improving since yesterday. Patient was seen today at the bedside had a one-to-one sitter. He appeared to be mildly confused, claims that he knows his name, he believes that today's date is "February 2023. He also believes that he is in "[place]". He knew that he was in the hospital however. He appears to be disheveled in appearance, claims that he was recently in [place] and him and his girlfriend broke up about a week ago. Claims that he got on the bus and came to [place] because he did not know what to do. States that he started drinking again was drinking heavily about 1/5 of fireball a day. Claims that he has been feeling more depressed lately, endorsing anxiety. Claims that he is also feeling hopeless does not know what to do. Is endorsing suicidal thoughts at this time no specific plan, denying any homicidal ideations. Patient denies any auditory, visual hallucinations and denies any paranoia or delusions. Patients admits to using alcohol as noted above, claims that he smokes cigarettes denies any other recreational drug use. He does state that he is having withdrawal symptoms at this time endorses having tremors, claims that he does have a history of withdrawals. Past Medical History: No Reported History History of Any Multi-Drug Resistant Organisms: None Reported Past Surgical History: Back Surgery Past Anesthesia/Blood Transfusion Reactions: No Reported Reaction Past Psychological History: No Psychological Hx Reported Smoking Status: Current every day smoker Past Alcohol Use History: Abuse PAST PSYCHIATRIC HISTORY: Patient has a history of alcohol use disorder, alcohol induced depressive disorder. Patient was previously on Zoloft 200 mg daily and doxepin 10 mg nightly. Patient was last psychiatrically hospitalized in September 2024. Patient denies any psychiatric outpatient follow-up. Patient reports 1 remote suicide attempt back in the 90s. PMH: as per ER note ALLERGIES: as per EMR SUBSTANCE USE HISTORY: As per HPI FAMILY PSYCHIATRIC/SUBSTANCE USE HISTORY: Patient states his father abused alcohol that his mother suffered from some form of mental illness SOCIAL HISTORY: Patient completed his GED and is currently on SSD. He is homeless and has been living in a motel for the past week. He has 2 children. He denied any legal issues. MENTAL STATUS EXAM: General Appearance: Patient appears to be disheveled in appearance, has a arciniega, stated age is alert, confused however attempts to be cooperative. Patient appears to have poor hygiene and grooming wearing hospital gown with fair eye contact. Behavior: Patient is calmly lying in bed without any agitated behavior. Confused yet attempts to cooperate Speech: Patient's speech is fluent and nonpressured. Hesitant, concrete Mood/Affect: Patient reports their mood is "depressed and anxious", affect is congruent Suicidality/Homicidality: Patient denies having any homicidal ideation intent or plan. Admits to having suicidal thoughts, no specific plan. Perceptions: Patient denies any visual hallucinations and denies any auditory hallucinations Though content/process: There is no evidence of any delusional thought content and thought process is linear and goal-directed. [place]. Memory and concentration: AOX3, grossly intact for the purposes of this session. Can spell "WORLD" backwards Judgment and insight: Poor IMPRESSIONS: Delirium, likely secondary to alcohol withdrawal Depressive disorder unspecified Suicidal ideations Alcohol use disorder severe dependence, currently in withdrawal Nicotine dependence Homelessness PLAN: -At this time patient DOES meet criteria for inpatient psychiatric admission. -Would recommend the following medication changes/additions: Start Librium scheduled 25 mg 3 times daily for alcohol withdrawal continue to taper. Will hold off on other psychiatric medications until patient is medically cleared. -CIWA protocol with PRN Ativan for alcohol withdrawal. Continue to monitor vital signs. -Continue 1:1 sitter for safety until patient is safely transferred to the mental health unit -Cannot leave AMA at this time. Patient will need a petition and certification if attempting to leave AMA. -Director Of Strategic Communications spoke with patient about substance abuse and the harmful effects on medical and mental health, patient verbally understood and agreed. -grounds worker to provide patient substance use treatment resources including AA/NA meetings in the community. -When medically stable, patient is eligible for transfer to a psych bed when available. -Communicated plan to patient's nurse -Psychiatry will sign off at this time -Please contact with any questions. 10/18/24 13:47 10/18/24 14:11
[2024-10-18] MEDS: chlordiazePOXIDE 25 MG CAP PO SCH (16:29)
--- NOTE | 2024-10-18 16:46 | MR ---
EXAMINATION TYPE: MR MRCP DATE OF EXAM: 10/18/2024 3:46 PM COMPARISON: ultrasound 10/17/2024 CLINICAL INDICATION: Male, 59 years old with history of Dilated pancreatic duct, acute pancreatitis, Dilated pancreatic duct, acute pancreatitis. TECHNIQUE: Multi planar, T2-weighted imaging with and without fat saturation and chemical shift imag ing was performed of the abdomen. Then, heavily T2 weighted imaging (half-Fourier acquisition single- shot turbo spin-echo) was utilized in order to study the biliary system. Maximum intensity projectio n images were reconstructed from the original data of the biliary tree. 3D images were created on a [employer] work station. No Gadolinium given. FINDINGS: Lower Thorax: No evidence for acute process. MRCP: * The intrahepatic ducts have a normal appearance. * The extrahepatic ducts have a normal appearance. * The common hepatic duct measures 4 mm in size. * The common bile duct at the level of the pancreatic head measures 5 mm in size. * The pancreatic duct is prominent in the pancreatic head measuring 3 mm * The gallbladder appears to have thickened becker with pericholecystic fluid. Gallbladder becker fito uring up to 4 mm suggested Abdomen: Liver: No evidence for hepatic steatosis or cirrhosis. Pancreas: No ductal dilation. No evidence for solid mass. Spleen: Normal for size. Adrenal glands: Unremarkable. Kidneys: No evidence for obstructive uropathy. No suspicious renal masses. Simple appearing right kwabena al 9 mm high T2 signal cyst. Simple appearing subcentimeter left renal cyst. No follow-up recommended for these lesions. Stomach and Bowel: No evidence for bowel wall thickening or evidence for obstruction. Scattered colon ic diverticula. Retroperitoneum/Peritoneum: No evidence of pneumoperitoneum or free fluid. Vasculature: No aortic aneurysm. Musculoskeletal: The osseous structures appear intact. Lymph Nodes: No gross evidence for lymphadenopathy. Abdominal wall: Unremarkable. IMPRESSION: 1. Mild gallbladder wall thickening suggested with out evidence for cholelithiasis. There is pericho lecystic fluid also thought to be present. Attention scheduled subsequent HIDA scan for acute cholecy stitis. 2. No significant inflammation changes around the pancreas to suggest pancreatitis. Correlate with s tiburcio markers. The pancreatic duct is within normal limits measuring 3 mm. No evidence to suggest duct al stricture, choledocholithiasis, or biliary ductal dilatation. [facility], , 10/18/2024 4:44 PM
[2024-10-18] MEDS: PANTOPRAZOLE 40 MG/10 ML VIAL IV SCH (22:00)
[2024-10-19 07:57] VITALS: RESP 16
[2024-10-19 08:30] LABS: Lipase 71 U/L (14-60)
[2024-10-19 08:55] LABS: ALT 41 U/L (10-49); AST 36 U/L (14-35); Albumin 3.1 g/dL (3.8-4.9); Albumin/Globulin Ratio 1.24 Ratio (1.60-3.17); Alkaline Phosphatase 94 U/L (41-126); BUN/Creat Ratio 15.89 Ratio (12.00-20.00); Blood Urea Nitrogen 14.3 mg/dL (9.0-27.0); Calcium 8.2 mg/dL (8.7-10.3); Carbon Dioxide 22.7 mmol/L (21.6-31.8); Chloride 108 mmol/L (96-109); Globulin 2.5 g/dL (1.6-3.3); Glucose 118 mg/dL (70-110); Potassium 3.8 mmol/L (3.5-5.5); Sodium 139 mmol/L (135-145); Total Bilirubin 0.3 mg/dL (0.3-1.2); Total Protein 5.6 g/dL (6.2-8.2)
--- NOTE | 2024-10-19 09:29 | NM ---
EXAMINATION TYPE: NM hepatobiliary w CCK DATE OF EXAM: 10/19/2024 9:08 AM COMPARISON: Ultrasound most recent 10/17/2024, MRI 10/18/2024 CLINICAL INDICATION:Male, 59 years old with history of abdominal pain, elevated LFTs; TECHNIQUE: The patient was given 4.9 mCi of Technetium 99m-Mebrofenin as a radiotracer and multiple scintigraphic images were obtained of the abdomen. Gallbladder function was also assessed after the a dministration of 1.8 mcg of Kinevac (cholecystokinin) and additional scintigraphic images were obtain ed of the abdomen. A region of interest was drawn over the gallbladder and a timing activity curve wa s generated. The gallbladder ejection fraction was calculated. Kinevac: 1.8 mcg FINDINGS: Normal uptake of radiotracer was identified within the liver with excretion into the hepatic and comm on biliary ducts within 6 min. There was normal progressive washout of the liver over the course of t he study. Radiotracer uptake within the gallbladder at 26 minutes as well as small bowel activity was identified at 12 minutes. Maximum calculated gallbladder ejection fraction is: 94% at 30 minutes (Normal gallbladder ejection fraction is > 35%) IMPRESSION: 1. Normal hepatobiliary scan. 2. Normal ejection fraction. [facility], , 10/19/2024 9:26 AM
--- NOTE | 2024-10-19 10:05 | P.PN ---
Subjective Progress Note Date: 10/18/24 History of present illness: 59-year-old male patient with past medical history significant for alcohol use disorder who presented to ER with alcohol intoxication. Patient was found wandering outside and appeared confused, police was called, patient reported drinking 1/5 of alcohol daily, patient was recently discharged from the hospital for being admitted for alcohol intoxication and suicidal ideations. Patient complaining of nausea and abdominal pain. Patient denied any headache, head injury, sore throat, productive cough, chest pain, palpitation, dysuria urgency frequency weakness or numbness of the extremities. Patient is afebrile, heart rate 91, respiratory rate 18, blood pressure 98/62, saturating 93% on room air. CBC is unremarkable. BMP unremarkable. AST 61, ALT 65. Normal bilirubin, normal triphosphate A. Troponin negative x 3. proBNP 64. Lipase elevated 1186 Serum alcohol level on presentation was 216. Ultrasound abdomen showed obscuration of the tail of the pancreas, dilatation of pancreatic duct, no gallstones. 10/18/2024 Patient is seen in follow-up today continues to report abdominal pain with general surgery following scheduled to undergo MRCP today. Lipase is s ignificantly improved and less than 100 although patient continues to report severe 10/10 pain. Patient also maintained on CIWA protocol and will add Librium for acute alcohol withdrawal. Patient evaluated by psychiatry as patient is reporting suicidal ideations with increased depression and does meet criteria for inpatient psychiatry once medically stable. Will await further surgical workup and also HIDA scan potentially being ordered. Will discuss with general surgery regarding treatment plan moving forward. Continue gentle hydration and will follow-up on repeat labs. Patient is currently afebrile Review of systems: Constitutional: No reports of fatigue, fever, or chills Cardiovascular: No reports of chest pain or palpitations Respiratory: No reports of shortness of breath or cough GI: reports of nausea, no vomiting, or diarrhea, reports significant abdominal pain : No reports of dysuria or retention Neurovascular: No reports of weakness or numbness All medications have been reviewed PHYSICAL EXAMINATION: GENERAL: The patient is A&O x3, well-developed, well-nourished, disheveled, unkempt, obese HEENT: EOMI, Sclerae anicteric, Moist Mucous membranes Neck: Supple, Non tender, No JVD PULMONARY: Equal breath souds B/L, No wheezing, No crackles. CARDIOVASCULAR: S1, S2 present. No murmurs, rubs, or gallops. ABDOMEN: Soft, LEFT upper quadrant tenderness noted on palpation, nondistended, normoactive bowel sounds. No guarding or rebound tenderness. MUSCULOSKELETAL: No edema, No cyanosis. No clubbing. Normal ROM. Intact peripheral pulses. NEUROLOGICAL: CN 2-12 grossly intact. No FND Assessment: Acute pancreatitis: Likely secondary to continued ongoing alcohol abuse, scheduled to undergo MRCP as well as HIDA scan with general surgery following Acute alcohol intoxication, with concerns of acute alcohol withdrawal, maintained on CIWA dilatation of pancreatic duct, no gallstones. Noted on imaging, concerns for acute pancreatitis Elevated lipase more than 1100 Suicidal ideations History of bipolar, anxiety, depression Continued ongoing nicotine abuse History of alcohol abuse Obesity with a BMI of 31.3 DVT prophylaxis GI prophylaxis Full code Plan: Patient is continued on CIWA protocol and have added Librium taper monitor for any withdrawals Continue n.p.o. for now with general surgery following patient underwent MRCP showing mild gallbladder wall thickening suggested without evidence of Mckenna lithiasis there is some pericholecystic fluid thought to be present recommending possible HIDA scan for acute cholecystitis. Also no significant inflammation changes around the pancreas to suggest pancreatitis the pancreatic duct is within normal limits measuring 3 mm with no evidence of ductal stricture, choledocholithiasis or biliary ductal dilatation. Patient is scheduled for HIDA scan which is pending for 10/19/2024 Continue n.p.o. for now and diet once okayed by general surgery Patient evaluated by psychiatry recommending inpatient psychiatric unit once medically stable Follow-up on repeat labs Encourage increase activity as tolerated The impression and plan of care has been dictated by Caprice Valerio, Nurse Practitioner as directed. Dr. Osorio MD I have performed a history and examination and MDM of this patient, discussed the same with the dictator, and agree with the dictator's assessment and plan as written ,documented as a scribe. Based on total visit time, I have performed more than 50% of the visit. Objective - Vital Signs Vital signs: Vital Signs Temp 97.9 F 10/18/24 07:00 Pulse 69 10/18/24 07:00 Resp 18 10/18/24 07:00 BP 140/87 10/18/24 07:00 Pulse Ox 96 10/18/24 07:00 FiO2 Intake & Output 10/17/24 10/18/24 10/18/24 18:59 06:59 18:59 Intake Total 480 Output Total 700 Balance 480 -700 Intake: Oral 480 Output: Urine 700 Other: # Voids 3 1 - Labs CBC & Chem 7: 10/18/24 04:26 10/19/24 05:59 Labs: Abnormal Lab Results - Last 24 Hours (Table) 10/18/24 10/18/24 Range/Units 04: 04:26 MPV 9.1 L (9.5-12.2) FL Calcium 8.5 L (8.7-10.3) mg/dL AST 42 H (14-35) U/L Total Protein 5.7 L (6.2-8.2) g/dL Albumin 3.3 L (3.8-4.9) g/dL Albumin/Globulin Ratio 1.38 L (1.60-3.17) Ratio Lipase 68 H (14-60) U/L
--- NOTE | 2024-10-19 12:43 | P.PN ---
Subjective Progress Note Date: 10/19/24 SURGICAL PROGRESS NOTE CHIEF COMPLAINT: Pancreatitis HISTORY OF PRESENT ILLNESS: Patient reports his abdominal pain is improved. He is tolerating the clear liquids. Denies any nausea or vomiting. MRCP had reported mild gallbladder wall thickening without evidence for cholelithiasis. There is pericholecystic fluid. No significant inflammation changes around the pancreas to suggest pancreatitis. Pancreatic duct is within normal limits measuring 3 mm. No evidence of ductal stricture, choledocholithiasis or biliary ductal dilatation. HIDA scan reports normal hepatobiliary scan. EF 94%. Afebr ile. LFTs trending down. Total bili normal 0.3. Lipase 71. PHYSICAL EXAM: VITAL SIGNS: Reviewed. GENERAL: Well-developed in no acute distress. ABDOMEN: Soft. Nondistended. NEUROLOGIC: Alert and oriented. Cranial nerves II through XII grossly intact. ASSESSMENT: 1. Acute pancreatitis likely alcohol induced. No evidence of gallstones on imaging. PLAN: -No surgical intervention planned -Advance diet to low-fat -Patient can be discharged from a surgical standpoint. Patient is being transferred to inpatient psychiatric unit. Physician Apartment Community Assistant Manager note has been reviewed by physician. Signing provider agrees with the documented findings, assessment, and plan of care. Objective - Vital Signs Vital signs: Vital Signs Temp 97.4 F L 10/19/24 07:00 Pulse 71 10/19/24 07:00 Resp 16 10/19/24 07:00 BP 126/83 10/19/24 07:00 Pulse Ox 96 10/19/24 07:00 FiO2 Intake & Output 10/18/24 10/19/24 10/19/24 18:59 06:59 18:59 Intake Total 240 Output Total 700 Balance -700 240 Intake: Oral 240 Output: Urine 700 Other: Voiding Method Toilet # Voids 3 2 - Labs CBC & Chem 7: 10/18/24 04:26 10/19/24 05:59 Labs: Abnormal Lab Results - Last 24 Hours (Table) 10/19/24 Range/Units 05:59 Glucose 118 H (70-110) mg/dL Calcium 8.2 L (8.7-10.3) mg/dL AST 36 H (14-35) U/L Total Protein 5.6 L (6.2-8.2) g/dL Albumin 3.1 L (3.8-4.9) g/dL Albumin/Globulin Ratio 1.24 L (1.60-3.17) Ratio Lipase 71 H (14-60) U/L
--- NOTE | 2024-10-19 14:31 | P.DS ---
Providers Date of admission: 10/17/24 02:24 Expected date of discharge: 10/19/24 Attending physician: Austin Marquez MD Consults: 10/17/24 02:21 Consult Physician Urgent Consulting Provider: Psychiatry - [facility] Psychiatry Consult Reason/Comments: SI Do you want consulting provider notified?: Yes, Notify in am 10/17/24 14:26 Consult Physician Routine Consulting Provider: Reuben Chong Consult Reason/Comments: Acute pancreatitis Do you want consulting provider notified?: Yes Primary care physician: Stated None Hospital Course: Final diagnosis Acute pancreatitis: secondary to continued ongoing alcohol abuse, MRCP as well as HIDA negative Acute alcohol intoxication, with concerns of acute alcohol withdrawal, maintained on CIWA Elevated lipase more than 1100 on admission, likely secondary to continued ongoing alcohol abuse Suicidal ideations History of bipolar, anxiety, depression Continued ongoing nicotine abuse History of alcohol abuse Obesity with a BMI of 31.3 DVT prophylaxis GI prophylaxis Full code Discharge disposition Patient is being discharged in a stable condition with guarded prognosis to psychiatric unit for further psychiatric evaluation. Patient will follow-up with Dr. Rico Wolf in the outpatient setting upon discharge. Patient is to continue with oral Ativan as needed as well as Librium taper. Patient to follow-up with general surgery and/or GI as scheduled. Total time taken is greater than 35 minutes. Hospital course This is a 59-year-old male who was recently admitted with acute alcohol intoxication with concerns of acute alcohol withdrawal and also elevated amylase/lipase with concerns of acute pancreatitis. Patient also with elevated transaminitis likely secondary to continued ongoing alcohol abuse. Numbers are trending down and recommend outpatient follow-up. Patient started on CIWA protocol and maintained on Librium recommended taper on discharge. Patient was evaluated by general surgery with concerns of pancreatitis underwent MRCP which was negative and recommending HIDA scan which shows a normal gallbladder EF. No surgical intervention planned at this time and recommend outpatient follow-up. Patient will continue on Protonix and has been cleared for discharge. Please refer to other consultation notes for further HPI. Patient was evaluated for suicidal ideations with increased depression by psychiatry and reports that he meets inpatient criteria. Patient will be transferred to psych unit for further psychiatric evaluation voluntarily. Patient is medically stable once a bed is available over there. Currently no reports of chest pain, shortness of breath, or palpitations. Patient is afebrile. No reports of nausea or vomiting and patient is tolerating diet. Slowly advance as tolerated over the next few days. Patient will be going to 3 [address]. inpatient psychiatric floor today. Physical exam: Gen: This is a 59-year-old male who is awake, alert and oriented x 3, well- developed, appears older than stated age, obese HEENT: Head is atraumatic, normocephalic. Pupils equal, round. Sclerae is anicteric. NECK: Supple. No JVD. No lymphadenopathy. No thyromegaly. LUNGS: Diminished breath sounds bilaterally otherwise clear to auscultation. No wheezes or rhonchi. No intercostal retractions. HEART: Regular rate and rhythm. No murmur. ABDOMEN: Soft. Bowel sounds are present. No masses. No tenderness. EXTREMITIES: No pedal edema. No calf tenderness. NEUROLOGICAL: Patient is awake, alert and oriented x3. Cranial nerves 2 through 12 are grossly intact. Please refer to medication reconciliation sheet for a list of medications. The impression and plan of care has been dictated by Caprice Valerio, Nurse Practitioner as directed. Dr. Osorio MD I have performed a history and examination and MDM of this patient, discussed the same with the dictator, and agree with the dictator's assessment and plan as written ,documented as a scribe. Based on total visit time, I have performed more than 50% of the visit. Patient Condition at Discharge: Stable Plan - Discharge Summary Discharge Rx Participant: No New Discharge Prescriptions: New LORazepam [Ativan] 1 mg PO Q8HR PRN tab PRN Reason: Anxiety Ibuprofen [Motrin] 400 mg PO Q6HR PRN tab PRN Reason: Mild Pain Or Fever > 100.5 Calcium Carbonate [Tums] 1,000 mg PO Q4HR PRN tab PRN Reason: Dyspepsia chlordiazePOXIDE HCl [Librium] 25 mg PO TID cap Pantoprazole Sodium [Protonix] 40 mg PO DAILY #30 tab Acetaminophen Tab [Tylenol] 650 mg PO Q6HR PRN tab PRN Reason: Mild Pain Or Fever > 100.5 Continue Multivitamins, Thera [Multivitamin (formulary)] 1 tab PO DIRECTED Folic Acid 1 mg PO DIRECTED Melatonin 10 mg PO DIRECTED Thiamine [Vitamin B-1] 100 mg PO DAILY #0 Discontinued Doxepin [SINEquan] 10 mg PO DIRECTED Gabapentin [Neurontin] 100 mg PO DIRECTED Sertraline [Zoloft] 200 mg PO DIRECTED Discharge Medication List Folic Acid 1 mg PO DIRECTED 10/17/24 [History] Melatonin 10 mg PO DIRECTED 10/17/24 [History] Multivitamins, Thera [Multivitamin (formulary)] 1 tab PO DIRECTED 10/17/24 [History] Acetaminophen Tab [Tylenol] 650 mg PO Q6HR PRN tab 10/19/24 [Rx] Calcium Carbonate [Tums] 1,000 mg PO Q4HR PRN tab 10/19/24 [Rx] Ibuprofen [Motrin] 400 mg PO Q6HR PRN tab 10/19/24 [Rx] LORazepam [Ativan] 1 mg PO Q8HR PRN tab 10/19/24 [Rx] Pantoprazole Sodium [Protonix] 40 mg PO DAILY #30 tab 10/19/24 [Rx] Thiamine [Vitamin B-1] 100 mg PO DAILY #0 10/19/24 [Rx] chlordiazePOXIDE HCl [Librium] 25 mg PO TID cap 10/19/24 [Rx] Follow up Appointment(s)/Referral(s): Joycelyn Rogers MD [STAFF PHYSICIAN] - 1 Week Activity/Diet/Wound Care/Special Instructions: Patient is going to psych unit for continued psychiatric evaluation Activity as tolerated Follow-up with GI and/or general surgery outpatient Continue current diet slowly advance as tolerated Discharge/Stand Alone Forms: AA Meetings Emily Grossman, Who Do I Call?, Community Resources, Outpatient Counseling, Inp Substance Abuse Facilities, Area PCPs Discharge Disposition: TRANSFER TO PSYCH HOSP/UNIT
[2024-10-19 16:02] VITALS: BP 129/85; PULSE 69; TEMP 98.4
[2024-10-19] MEDS: LORazepam 1 MG TAB PO PRN (16:36)
== END 2024-10-19 17:33 | disposition home or self-care (01) ==
LOC: EC 21:34 → 6NMEDSUR 10-17 02:24
PROVIDERS: ADMIT Internal Medicine; ATTEND Internal Medicine
DX: K85.90 Acute pancreatitis without necrosis or infection, unspecified (principal); Y90.7 Blood alcohol level of 200-239 mg/100 ml; F10.221 Alcohol dependence with intoxication delirium; F10.239 Alcohol dependence with withdrawal, unspecified; R74.8 Abnormal levels of other serum enzymes; R45.851 Suicidal ideations; F31.9 Bipolar disorder, unspecified; F41.9 Anxiety disorder, unspecified; E66.9 Obesity, unspecified; Z68.31 Body mass index [BMI] 31.0-31.9, adult; F17.200 Nicotine dependence, unspecified, uncomplicated; Z59.01 Sheltered homelessness; Z79.899 Other long term (current) drug therapy
CPT/HCPCS: 96376 ×4; 96372 ×4; 96375 ×3; 82075; 96374; 99285; 36415; 93005; 83880; 80053 ×3; 83690 ×3; 83735 ×2; 84100 ×2; 84484; 85025 ×2; 85610; 85730; 71046; 76705; 74181; 78227; G0378 ×3; G0480; A9537; J2060; J2270 ×2; J3411; J2405; J2805; J1650 ×3; J2470 ×3; 80320

== ENCOUNTER 2024-10-19 23:03 | Emergency (ER) | payer MEDICARE, OTHER ==
[2024-10-19 23:06] VITALS: BP 123/83; PULSE 83; RESP 18; TEMP 97.8
[2024-10-20] MEDS: MORPHINE SULFATE 4 MG/ML SYRINGE IM STA (00:31)
--- NOTE | 2024-10-20 00:33 | ED ---
General Adult HPI - General Chief complaint: Psychiatric Symptoms Stated complaint: ETOH Time Seen by Provider: 10/19/24 23:36 Source: police Mode of arrival: ambulatory Limitations: no limitations - History of Present Illness Initial comments: Dictation was produced using [employer] dictation software. please excuse any grammatical, word or spelling errors. Chief Complaint: 59-year-old male who is alcoholic presents to the ER for suicidal ideation History of Present Illness: Patient is 59-year-old alcohol male. Presents to the ER with suicidal ideation states that he plans on drowning. Patient complaining of his chronic back pain requesting pain medications. Patient is a poor historian secondary to inebriation. No other complaints. The ROS documented in this emergency department record has been reviewed and confirmed by me. Those systems with pertinent positive or negative responses have been documented in the HPI. All other systems are other negative and/or noncontributory. - Related Data Home Medications Medication Instructions Recorded Confirmed Folic Acid 1 mg PO DIRECTED 10/17/24 10/17/24 Melatonin 10 mg PO DIRECTED 10/17/24 10/17/24 Multivitamins, Thera [Multivitamin 1 tab PO DIRECTED 10/17/24 10/17/24 (formulary)] Previous Rx's Medication Instructions Recorded Calcium Carbonate [Tums] 1,000 mg PO Q4HR PRN tab 10/19/24 Ibuprofen [Motrin] 400 mg PO Q6HR PRN #10 tab 10/19/24 LORazepam [Ativan] 1 mg PO Q8HR PRN tab 10/19/24 Pantoprazole Sodium [Protonix] 40 mg PO DAILY #30 tab 10/19/24 Pantoprazole [Protonix] 40 mg PO DAILY 14 Days #14 tab 10/19/24 Thiamine [Vitamin B-1] 100 mg PO DAILY #0 10/19/24 chlordiazePOXIDE HCl [Librium] 25 mg PO TID 3 Days #6 capsule 10/19/24 Allergies Allergy/AdvReac Type Severity Reaction Status Date / Time No Known Allergies Allergy Verified 10/19/24 23:06 Review of Systems ROS Statement: Those systems with pertinent positive or pertinent negative responses have been documented in the HPI. ROS Other: All systems not noted in ROS Statement are negative. Past Medical History Past Medical History: No Reported History History of Any Multi-Drug Resistant Organisms: None Reported Past Surgical History: Back Surgery Past Anesthesia/Blood Transfusion Reactions: No Reported Reaction Past Psychological History: Bipolar Smoking Status: Current every day smoker Past Alcohol Use History: Abuse Past Drug Use History: None Reported General Exam - General Exam Comments Initial Comments: PHYSICAL EXAM: General Impression: Alert and oriented x3, not in acute distress HEENT: Normocephalic atraumatic, extra-ocular movements intact, pupils equal and reactive to light bilaterally, mucous membranes moist. Cardiovascular: Heart regular rate and rhythm Chest: Able to complete full sentences, no retractions, no tachypnea Abdomen: abdomen soft, non-tender, non-distended, no organomegaly Musculoskeletal: Pulses present and equal in all extremities, no peripheral edema Motor: no focal deficits noted Neurological: CN II-XII grossly intact, no focal motor or sensory deficits noted Skin: Intact with no visualized rashes Psych: Normal affect and mood Limitations: no limitations Course Vital Signs 10/19/24 23:04 Temperature 97.8 F Pulse Rate 83 Respiratory 18 Rate Blood Pressure 123/83 O2 Sat by Pulse 96 Oximetry Medical Decision Making - Medical Decision Making Was pt. sent in by a medical professional or institution (, PA, WIRE STRAIGHTENING MACHINE OPERATOR, urgent care, hospital, or custodial...) When possible be specific @ -No Did you speak to anyone other than the patient for history (EMS, parent, family, police, friend...)? What history was obtained from this source @ -No Did you review nursing and triage notes (agree or disagree)? Why? @ -I reviewed and agree with nursing and triage notes Were old charts reviewed (outside hosp., previous admission, EMS record, old EKG, old radiological studies, urgent care reports/EKG's, custodial records)? Report findings @ -No old charts were reviewed Differential Diagnosis (chest pain, altered mental status, abdominal pain women, abdominal pain men, vaginal bleeding, musculoskeletal, weakness, fever, dyspnea, syncope, headache, dizziness, GI bleed, back pain, seizure, CVA, palpatations, mental health)? @ -Differential Mental Health: Depression, anxiety, bipolar, psychosis, schizophrenia, borderline personality, situational depression, adjustment disorder, behavioral disorder, brain tumor, malingering, substance abuse, encephalopathy, medication reaction, dementia, hypothyroidism, degenerative neurologic disorder, lupus.... This is not meant to be all-inclusive list EKG interpreted by me (3pts min.). @ -None done X-rays interpreted by me (1pt min.). @ -None done CT interpreted by me (1pt min.). @ -None done U/S interpreted by me (1pt. min.). @ -None done What testing was considered but not performed or refused? (CT, X-rays, U/S, labs)? Why? @ -None What meds were considered but not given or refused? Why? @ -None Was smoking cessation discussed for >3mins.? @ -No Were there social determinants of health that impacted care today? How? (Homelessness, low income, unemployed, alcoholism, drug addiction, transportation, low edu. Level, literacy, decrease access to med. care, residential, rehab)? @ -No Was there de-escalation of care discussed even if they declined (Discuss DNR or withdrawal of care, Hospice)? DNR status @ -No What co-morbidities impacted this encounter? (DM, HTN, Smoking, COPD, CAD, Cancer, CVA, ARF, Chemo, Hep., AIDS, mental health diagnosis, sleep apnea, morbid obesity)? @ -None Was patient admitted / discharged? Hospital course, mention meds given and route, prescriptions, significant lab abnormalities, going to OR and other pertinent info. @ -59-year-old alcoholic male presents to the emergency department for suicidal ideation. Vital signs stable. Patient pending sobriety for medical clearance. Patient valid by EPS as notified at 3:37 AM that patient is cleared for discharge with safety plan. Patient reevaluated bedside at 3:37 AM found to be stable to condition. Patient discharged. Did you discuss the management of the patient with other professionals (professionals i.e. , PA, WIRE STRAIGHTENING MACHINE OPERATOR, lab, RT, psych nurse, social services coordinator, repairer welding equipment, teacher, soil science technical officer, employment case manager)? Give summary @ -No Was critical care preformed (if so, how long)? @ -No Undiagnosed new problem with uncertain prognosis? @ -No Drug Therapy requiring intensive monitoring for toxicity (Heparin, Nitro, Insulin, Cardizem)? @ -No Were any procedures done? @ -No Diagnosis/symptom? Acute, or Chronic, or Acute on Chronic? Uncomplicated (without systemic symptoms) or Complicated (systemic symptoms)? @ -Suicidal ideation Side effects of treatment? @ -No Exacerbation, Progression, or Severe Exacerbation? @ -No Poses a threat to life or bodily function? How? (Chest pain, USA, MA, pneumonia, PE, COPD, DKA, ARF, appy, cholecystitis, CVA, Diverticulitis, Homicidal, Suicidal, threat to staff... and all critical care pts) @ -yes - Lab Data Lab Results 10/20/24 Range/Units 01:10 Urine Opiates Screen Not Detected (NotDetected) Ur Oxycodone Screen Not Detected (NotDetected) Urine Methadone Screen Not Detected (NotDetected) Ur Barbiturates Screen Not Detected (NotDetected) U Tricyclic Antidepress Not Detected (NotDetected) Ur Phencyclidine Scrn Not Detected (NotDetected) Ur Amphetamines Screen Not Detected (NotDetected) U Methamphetamines Scrn Not Detected (NotDetected) U Benzodiazepines Scrn Detected H (NotDetected) Urine Cocaine Screen Not Detected (NotDetected) U Marijuana (THC) Screen Not Detected (NotDetected) Disposition Clinical Impression: Suicidal ideation Disposition: HOME SELF-CARE Condition: Fair Instructions (If sedation given, give patient instructions): Suicide Prevention (ED) Is patient prescribed a controlled substance at d/c from ED?: No Referrals: None,Stated [Primary Care Provider] - 1-2 days Time of Disposition: 03:39
[2024-10-20 03:01] LABS: Amphetamine Screen,Urine Not Detected (NotDetected); Barbiturate Screen,Urine Not Detected (NotDetected); Benzodiazepines Screen,Urine Detected (NotDetected); Cocaine Screen,Urine Not Detected (NotDetected); Methadone Screen, Urine Not Detected (NotDetected); Opiate Screen,Urine Not Detected (NotDetected); Oxycodone Screen, Urine Not Detected (NotDetected); Phencyclidine Screen,Urine Not Detected (NotDetected); Tricyclic Antidepressant,Urine Not Detected (NotDetected); Urn Cannabinoid Scrn Not Detected (NotDetected)
== END 2024-10-20 03:49 | disposition home or self-care (01) ==
LOC: EC 23:03
DX: R45.851 Suicidal ideations (principal); F17.200 Nicotine dependence, unspecified, uncomplicated
CPT/HCPCS: 80306; 82075; 96372; 99284

== ENCOUNTER 2024-10-23 22:43 | Inpatient (IN) | payer MEDICARE, MEDICAID ==
[2024-10-24 01:01] LABS: Basophils # (A) 0.07 10*3/uL (0.00-0.10); Basophils % (A) 0.8 %; Eosinophils # (A) 0.15 10*3/uL (0.04-0.35); Eosinophils % (A) 1.8 %; HCT 42.3 % (39.6-50.0); HGB 14.9 g/dL (13.0-17.0); Lymphocytes # (A) 2.19 10*3/uL (0.90-5.00); Lymphocytes % (A) 25.7 %; MCH 31.9 pg (27.0-32.0); MCHC 35.2 g/dL (32.0-37.0); MCV 90.6 fL (80.0-97.0); Mean Platelet Volume 9.2 fL (9.5-12.2); Monocytes # (A) 0.67 10*3/uL (0.20-1.00); Monocytes % (A) 7.9 %; Neutrophils # (A) 5.39 10*3/uL (1.80-7.70); Neutrophils % (A) 63.2 %; Platelet Count 287 10*3/uL (140-440); RBC 4.67 10*6/uL (4.40-5.60); RDW 14.5 % (11.5-14.5); WBC 8.52 10*3/uL (4.50-10.00)
[2024-10-24] MEDS: IBUPROFEN 600 MG TAB PO STA (01:07)
[2024-10-24 01:31] LABS: Amphetamine Screen,Urine Detected (NotDetected); Barbiturate Screen,Urine Not Detected (NotDetected); Benzodiazepines Screen,Urine Detected (NotDetected); Cocaine Screen,Urine Not Detected (NotDetected); Methadone Screen, Urine Not Detected (NotDetected); Opiate Screen,Urine Not Detected (NotDetected); Oxycodone Screen, Urine Not Detected (NotDetected); Phencyclidine Screen,Urine Not Detected (NotDetected); Tricyclic Antidepressant,Urine Not Detected (NotDetected); Urn Cannabinoid Scrn Not Detected (NotDetected)
[2024-10-24 01:54] LABS: African American GFR (CKD) >90 (>60 ml/min/1.73 sqM); Anion Gap 10 mmol/L; Blood Urea Nitrogen 16 mg/dL (9-20); Calcium 9.4 mg/dL (8.4-10.2); Carbon Dioxide 26 mmol/L (22-30); Chloride 102 mmol/L (98-107); Glucose 106 mg/dL (74-99); Non-African American GFR(CKD) >90 (>60 ml/min/1.73 sqM); Potassium 3.5 mmol/L (3.5-5.1); Sodium 138 mmol/L (137-145)
--- NOTE | 2024-10-24 03:10 | ED ---
General Adult HPI - General Chief complaint: Alcohol Stated complaint: Withdraw Time Seen by Provider: 10/24/24 00:30 Source: patient, RN notes reviewed, old records reviewed Mode of arrival: ambulatory Limitations: no limitations - History of Present Illness Initial comments: 59-year-old male who presents emergency department complaining of suicidal ideation. Plan is to drown himself. Denies any attempts. Denies homicidal ideation, times, plans. Denies any hallucinations. Does endorse alcohol use but states only had 1 drink today. Recently was admitted for alcohol withdrawals. Currently no withdrawal symptoms. Denies any other substance abuse. Presents for further evaluation at this time. He is complaining of chronic back pain which is at its baseline. Would like to be evaluated by psychiatry. - Related Data Home Medications Medication Instructions Recorded Confirmed Folic Acid 1 mg PO DIRECTED 10/17/24 10/17/24 Melatonin 10 mg PO DIRECTED 10/17/24 10/17/24 Multivitamins, Thera [Multivitamin 1 tab PO DIRECTED 10/17/24 10/17/24 (formulary)] Previous Rx's Medication Instructions Recorded Calcium Carbonate [Tums] 1,000 mg PO Q4HR PRN tab 10/19/24 Ibuprofen [Motrin] 400 mg PO Q6HR PRN #10 tab 10/19/24 LORazepam [Ativan] 1 mg PO Q8HR PRN tab 10/19/24 Pantoprazole Sodium [Protonix] 40 mg PO DAILY #30 tab 10/19/24 Pantoprazole [Protonix] 40 mg PO DAILY 14 Days #14 tab 10/19/24 Thiamine [Vitamin B-1] 100 mg PO DAILY #0 10/19/24 chlordiazePOXIDE HCl [Librium] 25 mg PO TID 3 Days #6 capsule 10/19/24 Allergies Allergy/AdvReac Type Severity Reaction Status Date / Time No Known Allergies Allergy Verified 10/23/24 22:55 Review of Systems ROS Statement: Those systems with pertinent positive or pertinent negative responses have been documented in the HPI. Review of Systems: CONST: Denies fever EYES: Denies blurry vision ENT: Denies nasal congestion C/V: Denies Chest pain RESP: Denies shortness of breath GI: Denies abdominal pain : Denies dysuria SKIN: Denies rash. MSK: Denies joint pain. NEURO: Denies headache ROS Other: All systems not noted in ROS Statement are negative. Past Medical History Past Medical History: No Reported History History of Any Multi-Drug Resistant Organisms: None Reported Past Surgical History: Back Surgery Past Anesthesia/Blood Transfusion Reactions: No Reported Reaction Past Psychological History: Bipolar Smoking Status: Current every day smoker Past Alcohol Use History: Abuse, Daily, Heavy General Exam - General Exam Comments Initial Comments: General: Appears in no acute distress. No evidence of alcohol withdrawals at this time. No tongue fasciculations. No tremors. HEAD: Normal with no signs of head trauma. EYES: EOMI ENT: Hearing grossly intact, normal oropharynx. RESPIRATORY: Clear breath sounds bilaterally. No wheezes, rales, or rhonchi. C/V: Regular rate and rhythm. S1 and S2 auscultated, peripheral pulses 2+ and intact throughout ABD: Abd is soft, nontender, nondistended EXT: No obvious deformity. SKIN: No rashes or lesions observed on exposed skin. NEURO: Alert and oriented x 4. Limitations: no limitations Course Vital Signs 10/23/24 22:53 Temperature 97.3 F L Pulse Rate 78 Respiratory 18 Rate Blood Pressure 143/93 O2 Sat by Pulse 98 Oximetry Medical Decision Making - Medical Decision Making Was pt. sent in by a medical professional or institution (, PA, STRAIGHTEDGE WORKER, urgent c are, hospital, or group home...) When possible be specific @ -No Did you speak to anyone other than the patient for history (EMS, parent, family, police, friend...)? What history was obtained from this source @ -No Did you review nursing and triage notes (agree or disagree)? Why? @ -I reviewed and agree with nursing and triage notes Were old charts reviewed (outside hosp., previous admission, EMS record, old EKG, old radiological studies, urgent care reports/EKG's, group home records)? Report findings @ -Old charts reviewed showing patient was recently here for complaint of alcohol intoxication 4 days ago. Recently admitted for pancreatitis on October 17. Currently has no symptoms. Differential Diagnosis (chest pain, altered mental status, abdominal pain women, abdominal pain men, vaginal bleeding, weakness, fever, dyspnea, syncope, headache, dizziness, GI bleed, back pain, seizure, CVA, palpatations, mental health, musculoskeletal)? @ -Differential Mental Health Depression, anxiety, bipolar, psychosis, schizophrenia, borderline personality, situational depression, adjustment disorder, behavioral disorder, brain tumor, malingering, substance abuse, encephalopathy, medication reaction, dementia, hypothyroidism, degenerative neurologic disorder, lupus.... This is not meant to be all-inclusive list EKG interpreted by me (3pts min.). @ -As above X-rays interpreted by me (1pt min.). @ -None done CT interpreted by me (1pt min.). @ -None done U/S interpreted by me (1pt. min.). @ -None done What testing was considered but not performed or refused? (CT, X-rays, U/S, labs)? Why? @ -None What meds were considered but not given or refused? Why? @ -None Did you discuss the management of the patient with other professionals (professionals i.e. , PA, STRAIGHTEDGE WORKER, lab, RT, psych nurse, social and political studies professor, speech language pathologist, teacher, lead security officer, case packer and sealer)? Give summary @ -EPS notified of the consult. EPS evaluate the patient and determined that he does meet inpatient psychiatric criteria. Was smoking cessation discussed for >3mins.? @ -No Was critical care preformed (if so, how long)? @ -No Were there social determinants of health that impacted care today? How? (Homele ssness, low income, unemployed, alcoholism, drug addiction, transportation, low edu. Level, literacy, decrease access to med. care, correction, rehab)? @ -No Was there de-escalation of care discussed even if they declined (Discuss DNR or withdrawal of care, Hospice)? DNR status @ -No What co-morbidities impacted this encounter? (DM, HTN, Smoking, COPD, CAD, Cancer, CVA, ARF, Chemo, Hep., AIDS, mental health diagnosis, sleep apnea, morbid obesity)? @ -Polysubstance abuse Was patient admitted / discharged? Hospital course, mention meds given and route, prescriptions, significant lab abnormalities, going to OR and other pertinent info. @ -Patient presents emergency department for suicidal ideation with a plan. Suicide precautions ordered. Due to his age, we will obtain screening labs and EKG. Vitals are within acceptable limits. BAT is 0. He was in agreement this plan. EKG showed no signs of acute ischemia. Laboratory studies returned within acceptable limits. UDS is positive for amphetamines, benzos. At this time, patient is medically cleared for evaluation by psychiatry. Disposition pending psychiatric evaluation. EPS notified of the consult. EPS notified me that patient does meet inpatient psychiatric arteria. Patient will be admitted to inpatient psychiatry in stable condition. Undiagnosed new problem with uncertain prognosis? @ -No Drug Therapy requiring intensive monitoring for toxicity (Heparin, Nitro, Insulin, Cardizem)? @ -No Were any procedures done? @ -No Diagnosis/symptom? @ -Suicidal ideation, polysubstance abuse Acute, or Chronic, or Acute on Chronic? @ -Acute Uncomplicated (without systemic symptoms) or Complicated (systemic symptoms)? @ -Complicated Side effects of treatment? @ -No Exacerbation, Progression, or Severe Exacerbation? @ -No Poses a threat to life or bodily function? How? (Chest pain, USA, VT, pneumonia, PE, COPD, DKA, ARF, appy, cholecystitis, CVA, Diverticulitis, Homicidal, Suicidal, threat to staff... and all critical care pts) @ -Yes - Lab Data Result diagrams: 10/24/24 00:49 10/24/24 00:49 Lab Results 10/24/24 10/24/24 10/24/24 Range/Units 00:47 00:49 00:49 WBC 8.52 (4.50-10.00) 10*3/uL RBC 4.67 (4.40-5.60) 10*6/uL Hgb 14.9 (13.0-17.0) g/dL Hct 42.3 (39.6-50.0) % MCV 90.6 (80.0-97.0) fL MCH 31.9 (27.0-32.0) pg MCHC 35.2 (32.0-37.0) g/dL Plt Count 287 (140-440) 10*3/uL MPV 9.2 L (9.5-12.2) fL Immature Gran % (Auto) 0.6 % Neutrophils % 63.2 % Lymphocytes % 25.7 % Monocytes % 7.9 % Eosinophils % 1.8 % Basophils % 0.8 % Immature Gran # 0.05 H (0.00-0.04) 10*3/uL Neutrophils # 5.39 (1.80-7.70) 10*3/uL Lymphocytes # 2.19 (0.90-5.00) 10*3/uL Monocytes # 0.67 (0.20-1.00) 10*3/uL Eosinophils # 0.15 (0.04-0.35) 10*3/uL Basophils # 0.07 (0.00-0.10) 10*3/uL Sodium 138 (137-145) mmol/L Potassium 3.5 (3.5-5.1) mmol/L Chloride 102 (98-107) mmol/L Carbon Dioxide 26 (22-30) mmol/L Anion Gap 10 mmol/L BUN 16 (9-20) mg/dL Creatinine 0.71 (0.66-1.25) mg/dL Est GFR (CKD-EPI)AfAm >90 (>60 ml/min/1.73 sqM) Est GFR (CKD-EPI)NonAf >90 (>60 ml/min/1.73 sqM) Glucose 106 H (74-99) mg/dL Calcium 9.4 (8.4-10.2) mg/dL Urine Opiates Screen Not Detected (NotDetected) Ur Oxycodone Screen Not Detected (NotDetected) Urine Methadone Screen Not Detected (NotDetected) Ur Barbiturates Screen Not Detected (NotDetected) U Tricyclic Antidepress Not Detected (NotDetected) Ur Phencyclidine Scrn Not Detected (NotDetected) Ur Amphetamines Screen Detected H (NotDetected) U Methamphetamines Scrn Detected H (NotDetected) U Benzodiazepines Scrn Detected H (NotDetected) Urine Cocaine Screen Not Detected (NotDetected) U Marijuana (THC) Screen Not Detected (NotDetected) - EKG Data -: EKG Interpreted by Me EKG Comments: 12-lead Electrocardiogram Interpretation Note EKG was reviewed and interpreted by myself. 12-lead ECG performed at 0104 is interpreted by me as revealing normal sinus rhythm at a rate of 88 beats per minute. Munger is normal. MT interval is 145 ms, QRS duration is 85 ms, QTc is 432 ms.. There were no ST or T wave abnormalities to suggest myocardial ischemia or injury. R wave progression across the precordium was satisfactory. By my interpretation this EKG is non-diagnostic for acute ischemia. Disposition Clinical Impression: Polysubstance abuse, Suicidal ideation Disposition: TRANSFER TO PSYCH HOSP/UNIT Condition: Stable Referrals: None,Stated [Primary Care Provider] - 1-2 days
[2024-10-24] MEDS ORDERED: ACETAMINOPHEN TAB 325 MG TAB PO PRN (05:06)
[2024-10-24] MEDS ORDERED: MAG HYDROX/AL HYDROX/SIMETH 355 ML BOTTLE PO PRN (05:06)
[2024-10-24] MEDS ORDERED: traZODone HCL 50 MG TAB PO PRN (05:06)
[2024-10-24] MEDS ORDERED: LORazepam 1 MG TAB PO PRN (05:06)
[2024-10-24] MEDS ORDERED: MAGNESIUM HYDROXIDE 2,400 MG/30 ML CUP PO PRN (05:06)
[2024-10-24] MEDS ORDERED: LORazepam 2 MG/ML INJ IM PRN (05:06)
[2024-10-24] MEDS ORDERED: HALOPERIDOL LACTATE 5 MG/ML 1 ML VIAL IM PRN (05:06)
[2024-10-24 06:03] LABS: Appearance,Urine Clear (Clear); Bilirubin,Urine Negative (Negative); Blood,Urine Negative (Negative); Color,Urine Light Yellow; Glucose,Urine (UA) Negative (Negative); Ketones,Urine Trace (Negative); Leukocyte Esterase,Urine Negative (Negative); Nitrite,Urine Negative (Negative); PH, Urine 6.5 (5.0-8.0); Protein,Urine Negative (Negative); Urobilinogen,Urine <2.0 mg/dL (<2.0)
--- NOTE | 2024-10-24 09:05 | P.HP ---
Psychiatric H&P - . H&P Date: 10/24/24 History & Physical: Allergies Allergy/AdvReac Type Severity Reaction Status Date / Time No Known Allergies Allergy Verified 10/23/24 22:55 Vital Signs Temp 97.6 F 10/24/24 06:02 Pulse 85 10/24/24 06:02 Resp 18 10/24/24 06:02 BP 111/78 10/24/24 06:02 Pulse Ox 95 10/24/24 06:02 FiO2 Intake & Output 10/23/24 10/24/24 10/24/24 18:59 06:59 18:59 Weight 86.409 kg Laboratory Last Values WBC 8.52 10*3/uL (4.50-10.00) 10/24/24 00:49 RBC 4.67 10*6/uL (4.40-5.60) 10/24/24 00:49 Hgb 14.9 g/dL (13.0-17.0) 10/24/24 00:49 Hct 42.3 % (39.6-50.0) 10/24/24 00:49 MCV 90.6 fL (80.0-97.0) 10/24/24 00:49 MCH 31.9 pg (27.0-32.0) 10/24/24 00:49 MCHC 35.2 g/dL (32.0-37.0) 10/24/24 00:49 Plt Count 287 10*3/uL (140-440) 10/24/24 00:49 MPV 9.2 fL (9.5-12.2) L 10/24/24 00:49 Immature Gran % (Auto) 0.6 % 10/24/24 00:49 Neutrophils % 63.2 % 10/24/24 00:49 Lymphocytes % 25.7 % 10/24/24 00:49 Monocytes % 7.9 % 10/24/24 00:49 Eosinophils % 1.8 % 10/24/24 00:49 Basophils % 0.8 % 10/24/24 00:49 Immature Gran # 0.05 10*3/uL (0.00-0.04) H 10/24/24 00:49 Neutrophils # 5.39 10*3/uL (1.80-7.70) 10/24/24 00:49 Lymphocytes # 2.19 10*3/uL (0.90-5.00) 10/24/24 00:49 Monocytes # 0.67 10*3/uL (0.20-1.00) 10/24/24 00:49 Eosinophils # 0.15 10*3/uL (0.04-0.35) 10/24/24 00:49 Basophils # 0.07 10*3/uL (0.00-0.10) 10/24/24 00:49 Sodium 138 mmol/L (137-145) 10/24/24 00:49 Potassium 3.5 mmol/L (3.5-5.1) 10/24/24 00:49 Chloride 102 mmol/L (98-107) 10/24/24 00:49 Carbon Dioxide 26 mmol/L (22-30) 10/24/24 00:49 Anion Gap 10 mmol/L 10/24/24 00:49 BUN 16 mg/dL (9-20) 10/24/24 00:49 Creatinine 0.71 mg/dL (0.66-1.25) 10/24/24 00:49 Est GFR (CKD-EPI)AfAm >90 (>60 ml/min/1.73 sqM) 10/24/24 00:49 Est GFR (CKD-EPI)NonAf >90 (>60 ml/min/1.73 sqM) 10/24/24 00:49 Glucose 106 mg/dL (74-99) H 10/24/24 00:49 Calcium 9.4 mg/dL (8.4-10.2) 10/24/24 00:49 Urine Color Light Yellow 10/24/24 00:47 Urine Appearance Clear (Clear) 10/24/24 00:47 Urine pH 6.5 (5.0-8.0) 10/24/24 00:47 Ur Specific Peck 1.010 (1.001-1.035) 10/24/24 00:47 Urine Protein Negative (Negative) 10/24/24 00:47 Urine Glucose (UA) Negative (Negative) 10/24/24 00:47 Urine Ketones Trace (Negative) H 10/24/24 00:47 Urine Blood Negative (Negative) 10/24/24 00:47 Urine Nitrite Negative (Negative) 10/24/24 00:47 Urine Bilirubin Negative (Negative) 10/24/24 00:47 Urine Urobilinogen <2.0 mg/dL (<2.0) 10/24/24 00:47 Ur Leukocyte Esterase Negative (Negative) 10/24/24 00:47 Urine Opiates Screen Not Detected (NotDetected) 10/24/24 00:47 Ur Oxycodone Screen Not Detected (NotDetected) 10/24/24 00:47 Urine Methadone Screen Not Detected (NotDetected) 10/24/24 00:47 Ur Barbiturates Screen Not Detected (NotDetected) 10/24/24 00:47 U Tricyclic Antidepress Not Detected (NotDetected) 10/24/24 00:47 Ur Phencyclidine Scrn Not Detected (NotDetected) 10/24/24 00:47 Ur Amphetamines Screen Detected (NotDetected) H 10/24/24 00:47 U Methamphetamines Scrn Detected (NotDetected) H 10/24/24 00:47 U Benzodiazepines Scrn Detected (NotDetected) H 10/24/24 00:47 Urine Cocaine Screen Not Detected (NotDetected) 10/24/24 00:47 U Marijuana (THC) Screen Not Detected (NotDetected) 10/24/24 00:47 SARS-CoV-2 (PCR) Not Detected (Not Detectd) 10/24/24 02:45 Dictation was produced using [employer] dictation software. Please excuse any grammatical, word or spelling errors. IDENTIFYING DATA: Patient is a 59 years old male with past psychiatric history of bipolar disorder, and alcohol use disorder, presenting for suicidal ideation. HPI: Patient presented to the hospital for suicidal ideation with a plan to drown himself. He denied any homicidal ideation, intention or plan, denied any hallucination. Reported that he has been drinking alcohol however reported that he had 1 drink prior to this admission. He was recently admitted for alcohol withdrawal, he denies any withdrawal symptoms. The patient reported that he has been drinking for 20+ years and " just did not want to live," reported that he has been struggling with finances, homelessness, and his family. He reported that he thinks he is ready to go to rehab. His UDS was positive for amphetamine, methamphetamine, and benzodiazepine. Per chart review the patient was admitted in the unit 2 weeks ago with the same complaint, he was started on medication and was improving, substance use rehab was offered at that time however patient declined. Upon evaluation in the unit today the patient agreed to speak with the group underwriter in the office, he states that he has been drinking so much, states that his last drink was yesterday 1/5 of vodka. He admitted to feeling down, sad, and depression, reported feeling hopeless, helpless, and worthless, he admitted to having suicidal thoughts with a plan to drown himself, however he denied any current plan or intention while in the hospital. Denied any HI. He admitted to previous suicidal attempt 17 yo via strangulation. He admitted to anxiety, and overwhelmed about "just life, everything." Admitted to racing thoughts, flight of ideas, and poor sleep mainly due to meth use, reported that he just want to drink when he is outside, he denied any goal directed behaviors. He admitted to hearing whispers, and denied any visual hallucination, paranoia or delusions. He admitted to smoking 1 PPD for 40 years, he started drinking when he was 10-12 yo, reported that he went to rehab 2 times in the past, he wants to go to rehab following this hospitalization, admitted to 3 DUIs with the last DUI 3 yrs ago. He admitted to using crack and methamphetamine yesterday. Denied any opiate use or cannabis. PAST PSYCHIATRIC HISTORY: - Inpatient Hospitalizations: Per report patient has 2 prior hospitalization at [facility], he was discharged on 10/13/2024 - Outpatient Care: [facility] - Current Psychotropics: none currently (stopped after discharge from the hospital) - Prior Psychotropics/Therapy: could not remember however reported that Wellbutrin sounds familiar - Prior Psychiatric dx: alcohol use disorder - Suicidal Attempts: once 15 yrs ago PMH: as per ER note Past Medical History: No Reported History History of Any Multi-Drug Resistant Organisms: None Reported Past Surgical History: Back Surgery Past Anesthesia/Blood Transfusion Reactions: No Reported Reaction Past Psychological History: Bipolar Smoking Status: Current every day smoker Past Alcohol Use History: Abuse, Daily, Heavy ALLERGIES: as per EMR CHEMICAL DEPENDENCY HISTORY: as per HPI FAMILY PSYCHIATRIC/SUBSTANCE USE HISTORY: Patient states his father abused alcohol that his mother suffered from some form of mental illness SOCIAL HISTORY: Patient was born and raised in [facility]. He is single. Patient completed his GED and is currently on SSD. He is homeless. He has 2 children. He denied any legal issues. MENTAL STATUS EXAM: General Appearance: Patient appears to be stated age is alert, directable, and a ttempts to cooperate. Patient appears to have poor hygiene and grooming. Behavior: Patient is seated without any agitated behavior. Patient appears sleepy Speech: Patient's speech is fluent and nonpressured. Mood/Affect: Patient reports their mood is depressed, affect is congruent and constricted. Suicidality/Homicidality: Patient denies having any homicidal ideation intent or plan. He reported suicidal ideations with a plan to drown himself however denied any intention or plan while in the hospital Perceptions: Patient denies any visual hallucinations and denies any auditory hallucinations, reported he had whispers at time however not frequent Though content/process: There is no evidence of any delusional thought content and thought process is linear and goal-directed. Memory and concentration: AOX3, grossly intact for the purposes of this session. Judgment and insight: poor STRENGTHS/WEAKNESSES: strength is that patient is resilient. 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 Patient has signed adult voluntary form and me dication consent and is placed in patient's chart. -Medications : Start Zoloft 25 mg p.o. daily -Ativan and Haldol PRN for agitation/aggression -Started thiamine, MVM for etoh use -CIWA protocol with Ativan PRN for ETOH withdrawal, scheduled Librium for alcohol withdrawal with plan to taper. -Patient was counselled on substance abuse and desired to cut back on use -Will offer patient subtance use rehab, patient agreed to attend substance use rehab following this hospitalization, social problems specialist to plan and provide resources to the patient -Patient was informed of the risks, benefits and side effects of the medication and patient verbally consented to taking the medications. Patient signed med consent form and was placed in chart. -Internal Medicine consult to perform medical evaluation and physical. -NRT - nicotine patch -SW on board for discharge planning. Encourage patient to participate in groups to work on coping skills. 10/24/24 07:55
[2024-10-24] MEDS: FOLIC ACID 1 MG TAB PO SCH (10:24)
[2024-10-24] MEDS: LORazepam 1 MG TAB PO PRN (10:24)
[2024-10-24] MEDS: SERTRALINE 25 MG TAB PO SCH (10:24)
[2024-10-24] MEDS: MULTIVITAMINS, THERA 1 EACH TAB PO SCH (10:24)
[2024-10-24] MEDS: THIAMINE 100 MG TAB PO SCH (10:24)
[2024-10-24] MEDS: NICOTINE 14MG/24HR PATCH TRANSDERM SCH (10:25)
[2024-10-25] MEDS ORDERED: THIAMINE 100 MG TAB PO SCH (09:00)
--- NOTE | 2024-10-25 09:34 | P.PN ---
Progress Note - Text Progress Note Date: 10/25/24 Interval history: Patient was seen today in his room. Patient claims that he is still feeling f airly depressed. Has been taking his medications not reporting any side effects. Mainly isolating in his room, claims that he is having withdrawal symptoms still including minor tremors. States that he is homeless at this time. Endorsing anxiety. Claims that he slept on and off last night. Admitted to having suicidal thoughts no specific plan, denies any auditory hallucinations or visual hallucinations. Mental status examination: General Appearance: Patient appears to be disheveled in appearance, wearing hospital gown, stated age is alert, directable, and attempts to cooperate. Patient appears to have poor hygiene and grooming. Behavior: Patient is seated without any agitated behavior. Patient appears somewhat anxious attempts to cooperate Speech: Patient's speech is fluent and nonpressured. Hesitant Mood/Affect: Patient reports their mood is depressed and anxious, affect is congruent and constricted. Suicidality/Homicidality: Patient denies having any homicidal ideation intent or plan. He reported suicidal ideations, no specific plan or intent Perceptions: Patient denies any visual hallucinations and denies any auditory hallucinations Though content/process: There is no evidence of any delusional thought content and thought process is linear and goal-directed. Fairly concrete. Memory and concentration: AOX3, grossly intact for the purposes of this session. 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 Patient has signed adult voluntary form and medication consent and is placed in patient's chart. -Medications : increase Zoloft 50 mg p.o. daily for mood/anxiety added seroquel 25 mg qhs for mood stablization/insomnia librium 25 mg tid for etoh withdrawal, will start taper down tomorrow. -Ativan and Haldol PRN for agitation/aggression -thiamine, MVM for etoh use -CIWA protocol with Ativan PRN for ETOH withdrawal -NRT - nicotine patch -SW on board for discharge planning. Encourage patient to participate in groups to work on coping skills. will offer patient rehab once he is improving psyhciatrically.
[2024-10-25] MEDS: IBUPROFEN 600 MG TAB PO PRN (10:11)
[2024-10-25] MEDS: chlordiazePOXIDE 25 MG CAP PO SCH (10:13)
[2024-10-26] MEDS: QUEtiapine 25 MG TAB PO SCH (08:16)
[2024-10-26] MEDS: SERTRALINE 50 MG TAB PO SCH (08:23)
--- NOTE | 2024-10-26 11:57 | P.PN ---
Progress Note - Text Progress Note Date: 10/26/24 Interval history: Patient was seen today in his room. Patient was laying down, continues to kp ear to be disheveled in appearance. Continues to state that he is feeling depressed regarding and also endorsing some anxiety. Has been mainly isolative. Claims that he slept a bit last night not fully for the night. Not reporting any side effects from his medications. Has been eating well. Continues to state that he is having suicidal thoughts no specific plan. denies any auditory hallucinations or visual hallucinations. Mental status examination: General Appearance: Patient appears to be disheveled in appearance, wearing hospital gown, stated age is alert, directable, and attempts to cooperate. Patient appears to have poor hygiene and grooming. Behavior: Patient is seated without any agitated behavior. Patient appears fairly isolative, withdrawn Speech: Patient's speech is fluent and nonpressured. Mood/Affect: Patient reports their mood is "still depressed", affect is congruent and constricted. Suicidality/Homicidality: Patient denies having any homicidal ideation intent o r plan. He reported suicidal ideations, no specific plan or intent Perceptions: Patient denies any visual hallucinations and denies any auditory hallucinations Though content/process: There is no evidence of any delusional thought content and thought process is linear and goal-directed. Fairly concrete. Guarded Memory and concentration: AOX3, grossly intact for the purposes of this session. 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 Patient has signed adult voluntary form and medication consent and is placed in patient's chart. -Medications : increase Zoloft 100 mg p.o. qhs for mood/anxiety starting tomorrow night seroquel 25 mg qhs for mood stablization/insomnia decrease librium 20 mg tid for etoh withdrawal, continue tapering -Ativan and Haldol PRN for agitation/aggression -thiamine, MVM for etoh use -CIWA protocol with Ativan PRN for ETOH withdrawal -NRT - nicotine patch -SW on board for discharge planning. Encourage patient to participate in groups to work on coping skills. Patient is declining rehab at this time.
[2024-10-26] MEDS: SERTRALINE 50 MG TAB PO ONE (21:13)
--- NOTE | 2024-10-27 03:08 | P.MDCNMH ---
History of Present Illness H&P Date: 10/26/24 59 year old male with alcohol abuse he presented initially for suicidal ideation , and had only one alcoholic drink that day. he currently reports some restlessness and agitation. and feels he is going through withdrawals, he was recently admitted for alcohol withdrawals he denies any fever, chills, cough, sore throat, chest pain , trouble breathing , nausea , vomiting, abd pain , changes in urinary or bowel habits. he sadmits to smoking , alcohol ,and drugs review of systems Pertinent positives as noted in HPI. All other systems were reviewed and are negative on exam Constitutional: No acute distress, Eyes: Anicteric sclerae, moist conjunctiva, Pupils equal round reactive to light ENMT: NC/AT Oropharynx clear, no erythema, or exudates Lungs: Clear to auscultation Clear to percussion Normal respiratory effort, no accessory muscle use Cardiovascular: Heart regular in rate and rhythm, No murmurs, gallops, or rubs No peripheral edema Abdominal: Soft Nontender, no guarding, rebound or rigidity Abdomen moving with respiration Normoactive bowel sounds Extremities: No digital cyanosis No clubbing Pedal pulses intact and symmetrical Radial pulses intact and symmetrical No calf tenderness Psychiatric: Alert and oriented to person, place and time Neuro Muscles Strength 5/5 in all 4 extremities Sensation to light touch grossly present throughout Cranial nerves II-XII grossly intact Past Medical History Past Medical History: No Reported History History of Any Multi-Drug Resistant Organisms: None Reported Past Surgical History: Back Surgery Past Anesthesia/Blood Transfusion Reactions: No Reported Reaction Smoking Status: Current every day smoker - Past Family History Father Family Medical History: Unable to Obtain Mother Family Medical History: Unable to Obtain Medications and Allergies Home Medications Medication Instructions Recorded Confirmed Type Folic Acid 1 mg PO DIRECTED 10/17/24 10/24/24 History Melatonin 10 mg PO DIRECTED 10/17/24 10/24/24 History Multivitamins, Thera [Multivitamin 1 tab PO DIRECTED 10/17/24 10/24/24 History (formulary)] Calcium Carbonate [Tums] 1,000 mg PO Q4HR PRN tab 10/19/24 10/24/24 Rx Ibuprofen [Motrin] 400 mg PO Q6HR PRN #10 tab 10/19/24 10/24/24 Rx LORazepam [Ativan] 1 mg PO Q8HR PRN tab 10/19/24 10/24/24 Rx Pantoprazole [Protonix] 40 mg PO DAILY 14 Days #14 tab 10/19/24 10/24/24 Rx Thiamine [Vitamin B-1] 100 mg PO DAILY #0 10/19/24 10/24/24 Rx chlordiazePOXIDE HCl [Librium] 25 mg PO TID 3 Days #6 capsule 10/19/24 10/24/24 Rx Allergies Allergy/AdvReac Type Severity Reaction Status Date / Time No Known Allergies Allergy Verified 10/23/24 22:55 Physical Exam Vitals: Vital Signs Temp Pulse Resp BP Pulse Ox 10/26/24 21:00 97.8 F 78 18 123/88 98 10/26/24 08:21 98.4 F 76 135/87 98 Cranial Nerve Examination - Cranial Nerves Cranial Nerve II- Optic: Intact Cranial Nerve III- Oculomotor: Intact Cranial Nerve IV- Trochlear: Intact Cranial Nerve V- Trigeminal: Intact Cranial Nerve - Abducens: Intact Cranial Nerve VII- Facial: Intact Cranial Nerve VIII- Auditory: Intact Cranial Nerve IX- Glossopharyngeal: Intact Cranial Nerve X- Vagus: Intact Cranial Nerve XI- Accessory: Intact Cranial Nerve XII- Hypoglossal: Intact Results CBC & Chem 7: 10/24/24 00:49 10/24/24 00:49 Assessment and Plan Assessment: suicidal ideation management per psych alcohol abuse monitor for alcohol withdrawal Benzo per [facility] thiamine daily labs reviewed , unremarkable positive urine drug screen thank you for this consultation
--- NOTE | 2024-10-27 10:22 | P.PN ---
Progress Note - Text Progress Note Date: 10/27/24 Interval history: Patient was seen today in his room. he continues to appear to be discheveled in appearance however does claim that he is showering every other day. Patient was laying down, continues to isolate. states that he is still feeling depressed and mildly anxious. Claims that he slept a bit last night not fully for the night. Not reporting any side effects from his medications. not going to many groups. Has been eating well. denies any suicidal thoughts, or any homicidal thoughts. denies any auditory hallucinations or visual hallucinations. Mental status examination: General Appearance: Patient appears to be disheveled in appearance, wearing hospital gown, stated age is alert, directable, and attempts to cooperate. Patient appears to have poor hygiene and grooming. Behavior: Patient is seated without any agitated behavior. Patient appears fairly isolative, withdrawn Speech: Patient's speech is fluent and nonpressured. concrete. Mood/Affect: Patient reports their mood is "the same a bit anxious aswell", affect is congruent and constricted. Suicidality/Homicidality: Patient denies having any homicidal ideation intent or plan. He reported suicidal ideations, no specific plan or intent Perceptions: Patient denies any visual hallucinations and denies any auditory hallucinations Though content/process: There is no evidence of any delusional thought content and thought process is linear and goal-directed. Fairly concrete Memory and concentration: AOX3, grossly intact for the purposes of this session. 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 Patient has signed adult voluntary form and medication consent and is placed in patient's chart. -Medications : increase Zoloft 100 mg p.o. qhs for mood/anxiety seroquel 25 mg qhs for mood stablization/insomnia decrease librium 10 mg qid for etoh withdrawal, continue tapering -Ativan and Haldol PRN for agitation/aggression -thiamine, MVM for etoh use -CIWA protocol with Ativan PRN for ETOH withdrawal -NRT - nicotine patch -SW on board for discharge planning. Encourage patient to participate in groups to work on coping skills. Patient is declining rehab at this time. hopeful for discharge early next week once patient improves psychiatrically.
[2024-10-27] MEDS: haloperidoL 5 MG TAB PO PRN (11:59)
[2024-10-27] MEDS: LORazepam 1 MG TAB PO PRN (12:05)
[2024-10-27] MEDS: SERTRALINE 100 MG TAB PO SCH (20:38)
[2024-10-27 21:33] VITALS: RESP 18
--- NOTE | 2024-10-28 12:27 | P.PN ---
Progress Note - Text Progress Note Date: 10/28/24 Interval history: Patient was seen today in his room. he continues to appear to be discheveled in appearance however does claim that he is showering every other day. Patient was laying down, continues to isolate. states that he is still feeling depressed and mildly anxious. Claims that he slept a bit last night not fully for the night. Not reporting any side effects from his medications. not going to many groups. Has been eating well. denies any suicidal thoughts, or any homicidal thoughts. denies any auditory hallucinations or visual hallucinations. continues to still minimize his drinking and drug use and declining rehab. Mental status examination: General Appearance: Patient appears to be less disheveled in appearance, wearing hospital gown, stated age is alert, directable, and attempts to cooperate. Patient appears to have improving hygiene and grooming. Behavior: Patient is seated without any agitated behavior. Patient to be a bit more cooperative, superficial. Speech: Patient's speech is fluent and nonpressured. concrete. Improving mildly Mood/Affect: Patient reports their mood is "ok", affect is congruent and constricted. Suicidality/Homicidality: Patient denies having any homicidal ideation intent or plan. He reported suicidal ideations, no specific plan or intent Perceptions: Patient denies any visual hallucinations and denies any auditory hallucinations Though content/process: There is no evidence of any delusional thought content and thought process is linear and goal-directed. Fairly concrete, improving mildly Memory and concentration: AOX3, grossly intact for the purposes of this session. 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 Patient has signed adult voluntary form and medication consent and is placed in patient's chart. Patient signed AMA on 10/27. -Medications : Zoloft 100 mg p.o. qhs for mood/anxiety increase seroquel 50 mg qhs for mood stablization/insomnia/anxiety decrease librium 10 mg tid for etoh withdrawal, continue tapering, last dose tomorrow am. -Ativan and Haldol PRN for agitation/aggression -thiamine, MVM for etoh use -CIWA protocol with Ativan PRN for ETOH withdrawal -Patient is refusing anticraving medications. -NRT - nicotine patch -SW on board for discharge planning. Encourage patient to participate in groups to work on coping skills. Patient is declining rehab at this time. Patient signed AMA paperwork on 10/27, will be up for review on Friday. Will consider discharge tomorrow if patient is doing well and taking medications.
[2024-10-28] MEDS: chlorproMAZINE 25 MG TAB PO ONE (16:41)
[2024-10-28] MEDS: QUEtiapine 50 MG TAB PO SCH (20:35)
[2024-10-28] MEDS: NICOTINE GUM (POLACRILEX) 2 MG GUM BUCCAL PRN (20:37)
[2024-10-29 09:45] VITALS: BP 104/69; PULSE 86; TEMP 97.7
--- NOTE | 2024-10-29 10:17 | P.DS ---
Providers Date of admission: 10/24/24 05:05 Expected date of discharge: 10/29/24 Attending physician: Janes Sprague MD Consults: 10/24/24 05:06 Consult Physician Routine Consulting Provider: Sesar Alanis Consult Reason/Comments: medical H&P Do you want consulting provider notified?: Yes Primary care physician: Stated None - Discharge Diagnosis(es) (1) Depressive disorder Current Visit: Yes Status: Acute Priority: High (2) Anxiety disorder Current Visit: Yes Status: Acute Priority: Medium (3) Alcohol use disorder, severe, dependence Current Visit: Yes Status: Acute Priority: High (4) Methamphetamine abuse Current Visit: Yes Status: Acute Priority: High (5) Nicotine dependence Current Visit: Yes Status: Acute Priority: Low Hospital Course: Admission HPI: Admission note was completed by Dr Dowell "patient is a 59 years old male with past psychiatric history of bipolar disorder, and alcohol use disorder, presenting for suicidal ideation. Patient presented to the hospital for suicidal ideation with a plan to drown himself. He denied any homicidal ideation, intention or plan, denied any hallucination. Reported that he has been drinking alcohol however reported that he had 1 drink prior to this admission. He was recently admitted for alcohol withdrawal, he denies any withdrawal symptoms. The patient reported that he has been drinking for 20+ years and " just did not want to live," reported that he has been struggling with finances, homelessness, and his family. He reported that he thinks he is ready to go to rehab. His UDS was positive for amphetamine, methamphetamine, and benzodiazepine. Per chart review the patient was admitted in the unit 2 weeks ago with the same complaint, he was started on medication and was improving, substance use rehab was offered at that time however patient declined. Upon evaluation in the unit today the patient agreed to speak with the bond underwriter in the office, he states that he has been drinking so much, states that his last drink was yesterday 1/5 of vodka. He admitted to feeling down, sad, and depression, reported feeling hopeless, helpless, and worthless, he admitted to having suicidal thoughts with a plan to drown himself, however he denied any current plan or intention while in the hospital. Denied any HI. He admitted to previous suicidal attempt 17 yo via strangulation. He admitted to anxiety, and overwhelmed about "just life, everything." Admitted to racing thoughts, flight of ideas, and poor sleep mainly due to meth use, reported that he just want to drink when he is outside, he denied any goal directed behaviors. He admitted to hearing whispers, and denied any visual hallucination, paranoia or delusions. He admitted to smoking 1 PPD for 40 years, he started drinking when he was 10-12 yo, reported that he went to rehab 2 times in the past, he wants to go to rehab following this hospitalization, admitted to 3 DUIs with the last DUI 3 yrs ago. He admitted to using crack and methamphetamine yesterday. Denied any opiate use or cannabis." Hospital course: Upon admission to the unit patient was directable and agreeable to commence treatment and signed adult voluntary form. After a few days on the unit patient requested to be discharged, signed AMA. Patient was initially isolative, disheveled and depressed however with time and treatment patient got along well with other patients on the unit and followed unit protocol. Patient was compliant with the medications and denied any side effects throughout hospital course. Patient was started on Zoloft increased to a dose of 100 mg nightly for mood/anxiety, Seroquel increased to 50 mg nightly for mood stabilization/insomnia/anxiety, Librium was started and scheduled for alcohol withdrawal and gradually tapered off prior to discharge. Patient was also placed on CIWA protocol with as needed Ativan. Patient was refusing anticraving medications for alcohol use. Patient spoke of his stressors however did not participate much in group/activity therapy and mainly kept to themselves during hospitalization. Patient was also seen by medical team for history and physical exam. Throughout the course of the hospitalization patient gradually improved with regards to mood, anxiety, withdrawal symptoms, suicidal thoughts, sleep and returned back to their baseline level of functioning. On the day of discharge patient denied any suicidal or homicidal ideations intent or plan denied any auditory or visual hallucinations. Patient endorsed wanting to live for their health and family. The patient denied any access to guns or weapons. Patient denied any paranoia and did not endorse any delusions. Patient does have a significant history of substance abuse and was counseled on abstaining from all substances including alcohol and marijuana. Patient was offered however declined inpatient substance-abuse rehab. Patient elected to do outpatient substance use treatment program through their outpatient provider. Patient was also counseled on the medications and need for regular compliance and was encouraged to follow-up with their outpatient appointment for mental health and also for primary care. Patient will be discharged today to the [facility], plan to follow-up with [facility] for outpatient mental health treatment. Mental status exam: General Appearance: Patient appears to be stated age is alert, pleasant, and cooperative. Patient is in no acute distress and has improved hygiene and grooming Behavior: Patient is calmly seated without any agitated behavior. more cooperative today Speech: Patient's speech is fluent and nonpressured. concrete Mood/Affect: Patient reports their mood is "alright", affect is congruent and constricted Suicidality/Homicidality: Patient denies having any suicidal or homicidal ideation intent or plan. Perceptions: Patient denies any auditory or visual hallucinations. Though content/process: There is no evidence of any delusional thought content and thought process is linear and goal-directed. Memory and concentration: AOX3, grossly intact for the purposes of this session. Can spell "WORLD" backwards correctly. Judgment and insight: Chronically poor, however has improved with guarded prognosis Impression: Depressive disorder unspecified Anxiety disorder unspecified Alcohol use disorder severe dependence Methamphetamine abuse Nicotine dependence Plan: -Continue with discharge today as patient has improved and stabilized psychiatrically and is not currently an imminent threat to themself and/or others. Patient will remain at chronically elevated risk for harm to self and/or others due to their impulsivity and substance abuse. -Continue medications: Zoloft 100 mg nightly for mood/anxiety, Seroquel 50 mg nightly for mood stabilization/insomnia/anxiety, Librium has been tapered off. Refusing anticraving medications. -Patient was counseled on the need for medication compliance and appropriate follow-up at mental health and also primary care for medical issues. Patient verbalized understanding and agreed. -Social work to help coordinate patients discharge today as patient will be discharged to the [facility]. also to ensure safe home environment that guns/weapons are either removed from the home or locked away. Social work also to arrange for patients follow up appointments with [facility] for psychiatric care along with follow up with primary care provider. -Patient counseled on abstaining from recreational drugs and marijuana and alcohol. Was informed/educated on the adverse effects on their physical and mental health. Patient verbally agreed and understood. Patient was offered substance abuse treatment however declined at this time. -Patient was instructed to return to the hospital or seek immediate medical care if their psychiatric or medical symptoms do worsen or reoccur. Allergies Allergy/AdvReac Type Severity Reaction Status Date / Time No Known Allergies Allergy Verified 10/23/24 22:55 Laboratory Results WBC 8.52 10*3/uL (4.50-10.00) 10/24/24 00:49 RBC 4.67 10*6/uL (4.40-5.60) 10/24/24 00:49 Hgb 14.9 g/dL (13.0-17.0) 10/24/24 00:49 Hct 42.3 % (39.6-50.0) 10/24/24 00:49 MCV 90.6 fL (80.0-97.0) 10/24/24 00:49 MCH 31.9 pg (27.0-32.0) 10/24/24 00:49 MCHC 35.2 g/dL (32.0-37.0) 10/24/24 00:49 Plt Count 287 10*3/uL (140-440) 10/24/24 00:49 MPV 9.2 fL (9.5-12.2) L 10/24/24 00:49 Immature Gran % (Auto) 0.6 % 10/24/24 00:49 Neutrophils % 63.2 % 10/24/24 00:49 Lymphocytes % 25.7 % 10/24/24 00:49 Monocytes % 7.9 % 10/24/24 00:49 Eosinophils % 1.8 % 10/24/24 00:49 Basophils % 0.8 % 10/24/24 00:49 Immature Gran # 0.05 10*3/uL (0.00-0.04) H 10/24/24 00:49 Neutrophils # 5.39 10*3/uL (1.80-7.70) 10/24/24 00:49 Lymphocytes # 2.19 10*3/uL (0.90-5.00) 10/24/24 00:49 Monocytes # 0.67 10*3/uL (0.20-1.00) 10/24/24 00:49 Eosinophils # 0.15 10*3/uL (0.04-0.35) 10/24/24 00:49 Basophils # 0.07 10*3/uL (0.00-0.10) 10/24/24 00:49 Sodium 138 mmol/L (137-145) 10/24/24 00:49 Potassium 3.5 mmol/L (3.5-5.1) 10/24/24 00:49 Chloride 102 mmol/L (98-107) 10/24/24 00:49 Carbon Dioxide 26 mmol/L (22-30) 10/24/24 00:49 Anion Gap 10 mmol/L 10/24/24 00:49 BUN 16 mg/dL (9-20) 10/24/24 00:49 Creatinine 0.71 mg/dL (0.66-1.25) 10/24/24 00:49 Est GFR (CKD-EPI)AfAm >90 (>60 ml/min/1.73 sqM) 10/24/24 00:49 Est GFR (CKD-EPI)NonAf >90 (>60 ml/min/1.73 sqM) 10/24/24 00:49 Glucose 106 mg/dL (74-99) H 10/24/24 00:49 Calcium 9.4 mg/dL (8.4-10.2) 10/24/24 00:49 Urine Color Light Yellow 10/24/24 00:47 Urine Appearance Clear (Clear) 10/24/24 00:47 Urine pH 6.5 (5.0-8.0) 10/24/24 00:47 Ur Specific Lyman 1.010 (1.001-1.035) 10/24/24 00:47 Urine Protein Negative (Negative) 10/24/24 00:47 Urine Glucose (UA) Negative (Negative) 10/24/24 00:47 Urine Ketones Trace (Negative) H 10/24/24 00:47 Urine Blood Negative (Negative) 10/24/24 00:47 Urine Nitrite Negative (Negative) 10/24/24 00:47 Urine Bilirubin Negative (Negative) 10/24/24 00:47 Urine Urobilinogen <2.0 mg/dL (<2.0) 10/24/24 00:47 Ur Leukocyte Esterase Negative (Negative) 10/24/24 00:47 Urine Opiates Screen Not Detected (NotDetected) 10/24/24 00:47 Ur Oxycodone Screen Not Detected (NotDetected) 10/24/24 00:47 Urine Methadone Screen Not Detected (NotDetected) 10/24/24 00:47 Ur Barbiturates Screen Not Detected (NotDetected) 10/24/24 00:47 U Tricyclic Antidepress Not Detected (NotDetected) 10/24/24 00:47 Ur Phencyclidine Scrn Not Detected (NotDetected) 10/24/24 00:47 Ur Amphetamines Screen Detected (NotDetected) H 10/24/24 00:47 U Methamphetamines Scrn Detected (NotDetected) H 10/24/24 00:47 U Benzodiazepines Scrn Detected (NotDetected) H 10/24/24 00:47 Urine Cocaine Screen Not Detected (NotDetected) 10/24/24 00:47 U Marijuana (THC) Screen Not Detected (NotDetected) 10/24/24 00:47 SARS-CoV-2 (PCR) Not Detected (Not Detectd) 10/24/24 02:45 Vital Signs Temp 97.7 F 10/29/24 09:44 Pulse 86 10/29/24 09:44 Resp 18 10/29/24 09:44 BP 104/69 10/29/24 09:44 Pulse Ox 97 10/29/24 09:44 FiO2 Patient Condition at Discharge: Stable Plan - Discharge Summary Discharge Rx Participant: Yes New Discharge Prescriptions: New Sertraline [Zoloft] 100 mg PO HS 30 Days #30 tab Ibuprofen [Motrin] 600 mg PO Q6HR PRN tab PRN Reason: Moderate Pain (Scale 4 To 6) Nicotine Gum (Polacrilex) [Nicorette] 2 mg BUCCAL Q4HR PRN 30 Days #180 pieceofgum PRN Reason: Nicotine Cravings QUEtiapine [SEROquel] 50 mg PO HS 30 Days #30 tab Continue Multivitamins, Thera [Multivitamin (formulary)] 1 tab PO DIRECTED Calcium Carbonate [Tums] 1,000 mg PO Q4HR PRN tab PRN Reason: Dyspepsia Folic Acid 1 mg PO DIRECTED Thiamine [Vitamin B-1] 100 mg PO DAILY #0 Pantoprazole [Protonix] 40 mg PO DAILY 30 Days #30 tab Discontinued LORazepam [Ativan] 1 mg PO Q8HR PRN tab PRN Reason: Anxiety Melatonin 10 mg PO DIRECTED chlordiazePOXIDE HCl [Librium] 25 mg PO TID 3 Days #6 capsule Ibuprofen [Motrin] 400 mg PO Q6HR PRN #10 tab PRN Reason: Pain Discharge Medication List Folic Acid 1 mg PO DIRECTED 10/17/24 [History] Multivitamins, Thera [Multivitamin (formulary)] 1 tab PO DIRECTED 10/17/24 [History] Calcium Carbonate [Tums] 1,000 mg PO Q4HR PRN tab 10/19/24 [Rx] Thiamine [Vitamin B-1] 100 mg PO DAILY #0 10/19/24 [Rx] Ibuprofen [Motrin] 600 mg PO Q6HR PRN tab 10/29/24 [Rx] Nicotine Gum (Polacrilex) [Nicorette] 2 mg BUCCAL Q4HR PRN 30 Days #180 pieceofgum 10/29/24 [Rx] Pantoprazole [Protonix] 40 mg PO DAILY 30 Days #30 tab 10/29/24 [Rx] QUEtiapine [SEROquel] 50 mg PO HS 30 Days #30 tab 10/29/24 [Rx] Sertraline [Zoloft] 100 mg PO HS 30 Days #30 tab 10/29/24 [Rx] Follow up Appointment(s)/Referral(s): [facility] [Outside] - 11/02/24 9:00 am (Intake Friday11/02/2024 @ 9:00 am ramy Garg) [facility] [NON-STAFF] - 1 Week Activity/Diet/Wound Care/Special Instructions: [facility] Discharge Info Avoid the use of street drugs and alcohol. Take all medications as prescribed. When you are in need of refills on your medications, please contact your outpatient medical provider and/or outpatient psychiatrist. Please go to your scheduled outpatient appointments for aftercare treatment. If symptoms return or become worse, call the crisis line at or and/or visit the nearest emergency room for assistance. National Suicide and Crisis Lifeline - call or text 884 Discharge/Stand Alone Forms: AA Meetings [place] Discharge Disposition: OTHER INSTITUTION NOT DEFINED
== END 2024-10-29 12:04 | disposition home or self-care (01) | DRG 897 ==
LOC: EC 22:43 → 3MHU 10-24 05:05
PROVIDERS: ADMIT Psychiatry & Neurology Psychiatry; ATTEND Psychiatry & Neurology Psychiatry
PROC: HZ2ZZZZ Detoxification Services for Substance Abuse Treatment (ICD-10-PCS; principal; 2024-10-24)
DX: F15.14 Other stimulant abuse with stimulant-induced mood disorder (principal); F10.231 Alcohol dependence with withdrawal delirium; F31.9 Bipolar disorder, unspecified; R45.851 Suicidal ideations; Z59.00 Homelessness unspecified; F19.980 Other psychoactive substance use, unspecified with psychoactive substance-induced anxiety disorder; F17.210 Nicotine dependence, cigarettes, uncomplicated; G47.00 Insomnia, unspecified; G89.29 Other chronic pain; Z79.899 Other long term (current) drug therapy; Z53.29 Procedure and treatment not carried out because of patient's decision for other reasons; Z71.41 Alcohol abuse counseling and surveillance of alcoholic; Z71.51 Drug abuse counseling and surveillance of drug abuser
CPT/HCPCS: 36415; 80048; 80306; 81003; 82075; 85025; 87635; 93005; 99285

== ENCOUNTER 2024-10-29 15:13 | Emergency (ER) | payer MEDICARE, OTHER ==
--- NOTE | 2024-10-29 16:11 | ED ---
General Adult HPI - General Chief complaint: Fall Stated complaint: fall Time Seen by Provider: 10/29/24 16:00 Source: patient, EMS, RN notes reviewed, old records reviewed Mode of arrival: EMS - History of Present Illness Initial comments: Patient is a 59-year-old male well-known to our emergency department presents emergency department after falling on the sidewalk and possibly hitting his head. He is also intoxicated with alcohol. Is a chronic alcoholic. States he remembers falling but is uncertain if he lost consciousness or hit his head. He denies any pain. Denies any neck pain, back pain. Denies any chest pain or shortness of breath. Denies any abdominal pain. Presents for further evaluation at this time. Cervical collar was removed by the patient. - Related Data Home Medications Medication Instructions Recorded Confirmed Folic Acid 1 mg PO DIRECTED 10/17/24 10/24/24 Multivitamins, Thera [Multivitamin 1 tab PO DIRECTED 10/17/24 10/24/24 (formulary)] Previous Rx's Medication Instructions Recorded Calcium Carbonate [Tums] 1,000 mg PO Q4HR PRN tab 10/19/24 Thiamine [Vitamin B-1] 100 mg PO DAILY #0 10/19/24 Ibuprofen [Motrin] 600 mg PO Q6HR PRN tab 10/29/24 Nicotine Gum (Polacrilex) 2 mg BUCCAL Q4HR PRN 30 Days #180 10/29/24 [Nicorette] pieceofgum Pantoprazole [Protonix] 40 mg PO DAILY 30 Days #30 tab 10/29/24 QUEtiapine [SEROquel] 50 mg PO HS 30 Days #30 tab 10/29/24 Sertraline [Zoloft] 100 mg PO HS 30 Days #30 tab 10/29/24 Allergies Allergy/AdvReac Type Severity Reaction Status Date / Time No Known Allergies Allergy Verified 10/23/24 22:55 Review of Systems ROS Statement: Those systems with pertinent positive or pertinent negative responses have been documented in the HPI. Review of Systems: CONST: Denies fever EYES: Denies blurry vision ENT: Denies nasal congestion C/V: Denies Chest pain RESP: Denies shortness of breath GI: Denies abdominal pain : Denies dysuria SKIN: Denies rash. MSK: Denies joint pain. NEURO: Denies headache ROS Other: All systems not noted in ROS Statement are negative. Past Medical History Past Medical History: No Reported History History of Any Multi-Drug Resistant Organisms: None Reported Past Surgical History: Back Surgery Past Anesthesia/Blood Transfusion Reactions: No Reported Reaction Past Psychological History: Bipolar Smoking Status: Current every day smoker - Past Family History Father Family Medical History: Unable to Obtain Mother Family Medical History: Unable to Obtain General Exam - General Exam Comments Initial Comments: General: Appears in no acute distress. Appears intoxicated with alcohol. No evidence of alcohol withdrawal symptoms at this time. HEAD: Normal with no signs of head trauma. Negative raccoon eyes. Negative Rubio sign. EYES: PERRLA, EOMI, conjunctiva normal, no discharge. Pupils are 3 mm and equal bilaterally. ENT: Hearing grossly intact, normal oropharynx. RESPIRATORY: Clear breath sounds bilaterally. No wheezes, rales, or rhonchi. C/V: Regular rate and rhythm. S1 and S2 auscultated, no edema, peripheral pulses 2+ and intact throughout ABD: Abd is soft, nontender, nondistended EXT: Normal range of motion, no obvious deformity. Pelvis is stable. No midline cervical, thoracic, lumbar spine tenderness to palpation. SKIN: No rashes or lesions observed on exposed skin. NEURO: Alert and oriented x 4. Cranial nerves II-XII intact. No focal sensory or strength deficits.GCS of 15. Course Vital Signs 10/29/24 10/29/24 10/29/24 15:17 18:38 19:36 Temperature 98.0 F 98.3 F 98.4 F Pulse Rate 96 87 96 Respiratory 20 19 18 Rate Blood Pressure 105/66 118/76 118/76 O2 Sat by Pulse 96 96 95 Oximetry Medical Decision Making - Medical Decision Making Was pt. sent in by a medical professional or institution (, PA, PAINT RO[employer]OVERS SUPERVISOR, urgent ca re, hospital, or alf...) When possible be specific @ -No Did you speak to anyone other than the patient for history (EMS, parent, family, police, friend...)? What history was obtained from this source @ -No Did you review nursing and triage notes (agree or disagree)? Why? @ -I reviewed and agree with nursing and triage notes Were old charts reviewed (outside hosp., previous admission, EMS record, old EKG, old radiological studies, urgent care reports/EKG's, alf records)? Report findings @ -Reviewed chart which shows multiple visits for alcohol intoxication in the past. Differential Diagnosis (chest pain, altered mental status, abdominal pain women, abdominal pain men, vaginal bleeding, weakness, fever, dyspnea, syncope, headache, dizziness, GI bleed, back pain, seizure, CVA, palpatations, mental health, musculoskeletal)? @ -Fall, intracranial injury, alcohol intoxication. This list is not all- inclusive. EKG interpreted by me (3pts min.). @ -As above X-rays interpreted by me (1pt min.). @ -Chest x-ray reveals no obvious acute cardiopulmonary process. CT interpreted by me (1pt min.). @ -CT brain, C-spine negative for any obvious acute traumatic injury. U/S interpreted by me (1pt. min.). @ -None done What testing was considered but not performed or refused? (CT, X-rays, U/S, labs)? Why? @ -None What meds were considered but not given or refused? Why? @ -None Did you discuss the management of the patient with other professionals (professionals i.e. , PA, PA[employer] RO[employer] SUPERVISOR, lab, RT, psych nurse, social work supervisor, neck fitter, teacher, deck officer, case coordinator)? Give summary @ -No Was smoking cessation discussed for >3mins.? @ -No Was critical care preformed (if so, how long)? @ -No Were there social determinants of health that impacted care today? How? (Homelessness, low income, unemployed, alcoholism, drug addiction, transportation, low edu. Level, literacy, decrease access to med. care, care home, rehab)? @ -No Was there de-escalation of care discussed even if they declined (Discuss DNR or withdrawal of care, Hospice)? DNR status @ -No What co-morbidities impacted this encounter? (DM, HTN, Smoking, COPD, CAD, Cancer, CVA, ARF, Chemo, Hep., AIDS, mental health diagnosis, sleep apnea, morbid obesity)? @ -None Was patient admitted / discharged? Hospital course, mention meds given and route, prescriptions, significant lab abnormalities, going to OR and other pertinent info. @ -Patient presents acutely intoxicated with alcohol with a fall. Has no obvious injuries. Due to his alcohol intoxication, we will obtain basic labs as well as CT brain, C-spine and chest x-ray. He was in agreement this plan. Vitals are within acceptable limits. Given IV fluids. No evidence of alcohol withdrawals at this time. EKG shows no signs of acute ischemia. Imaging negative for any obvious acute traumatic injury. Laboratory studies are all within acceptable limits except for alcohol level of 217. Patient does not want to be admitted. States he will continue drinking at discharge. Patient will be observed here in the department for clinical s obriety and then discharged home. He was in agreement this plan. Given food. Patient was in the emergency department for 4 hours and 22 minutes and was able to ambulate without issue and is currently clinically sober. He still would like to go home and I believe that it is reasonable. Patient be discharged home at this time. Strict return precautions discussed. I instructed the patient to follow up with their PCP in the next 1-3 days. I explained that the patient should return to the emergency department if they experience any worsening symptoms. Strict return precautions were discussed with the patient. The patient expressed understanding of these instructions. I answered all questions that the patient had. The patient was discharged home in good condition with their prescriptions and follow up information. Undiagnosed new problem with uncertain prognosis? @ -No Drug Therapy requiring intensive monitoring for toxicity (Heparin, Nitro, Insulin, Cardizem)? @ -No Were any procedures done? @ -No Diagnosis/symptom? @ -Alcohol intoxication, fall Acute, or Chronic, or Acute on Chronic? @ -Acute Uncomplicated (without systemic symptoms) or Complicated (systemic symptoms)? @ -Uncomplicated Side effects of treatment? @ -No Exacerbation, Progression, or Severe Exacerbation? @ -No Poses a threat to life or bodily function? How? (Chest pain, USA, ME, pneumonia, PE, COPD, DKA, ARF, appy, cholecystitis, CVA, Diverticulitis, Homicidal, Suicidal, threat to staff... and all critical care pts) @ -Unlikely at this time - Lab Data Result diagrams: 10/29/24 16:22 10/29/24 16:22 Lab Results 10/29/24 10/29/24 10/29/24 Range/Units 16:22 16:22 17:26 WBC 9.35 (4.50-10.00) 10*3/uL RBC 4.64 (4.40-5.60) 10*6/uL Hgb 14.9 (13.0-17.0) g/dL Hct 42.7 (39.6-50.0) % MCV 92.0 (80.0-97.0) fL MCH 32.1 H (27.0-32.0) pg MCHC 34.9 (32.0-37.0) g/dL Plt Count 275 (140-440) 10*3/uL MPV 9.3 L (9.5-12.2) fL Immature Gran % (Auto) 1.0 % Neutrophils % 62.9 % Lymphocytes % 22.6 % Monocytes % 12.0 % Eosinophils % 1.1 % Basophils % 0.4 % Immature Gran # 0.09 H (0.00-0.04) 10*3/uL Neutrophils # 5.89 (1.80-7.70) 10*3/uL Lymphocytes # 2.11 (0.90-5.00) 10*3/uL Monocytes # 1.12 H (0.20-1.00) 10*3/uL Eosinophils # 0.10 (0.04-0.35) 10*3/uL Basophils # 0.04 (0.00-0.10) 10*3/uL Sodium 138 (137-145) mmol/L Potassium 5.0 (3.5-5.1) mmol/L Chloride 106 (98-107) mmol/L Carbon Dioxide 20 L (22-30) mmol/L Anion Gap 12 mmol/L BUN 19 (9-20) mg/dL Creatinine 0.87 (0.66-1.25) mg/dL Est GFR (CKD-EPI)AfAm >90 (>60 ml/min/1.73 sqM) Est GFR (CKD-EPI)NonAf >90 (>60 ml/min/1.73 sqM) Glucose 85 (74-99) mg/dL Calcium 9.0 (8.4-10.2) mg/dL Magnesium 2.3 (1.6-2.3) mg/dL Total Bilirubin 0.7 (0.2-1.3) mg/dL AST 59 (17-59) U/L ALT 60 H (4-49) U/L Alkaline Phosphatase 58 (38-126) U/L Total Protein 7.1 (6.3-8.2) g/dL Albumin 4.0 (3.5-5.0) g/dL Urine Color Colorless Urine Appearance Clear (Clear) Urine pH 6.0 (5.0-8.0) Ur Specific Amelia 1.002 (1.001-1.035) Urine Protein Negative (Negative) Urine Glucose (UA) Negative (Negative) Urine Ketones Negative (Negative) Urine Blood Negative (Negative) Urine Nitrite Negative (Negative) Urine Bilirubin Negative (Negative) Urine Urobilinogen <2.0 (<2.0) mg/dL Ur Leukocyte Esterase Negative (Negative) Serum Alcohol 217 H* mg/dL - EKG Data -: EKG Interpreted by Me EKG Comments: 12-lead Electrocardiogram Interpretation Note EKG was reviewed and interpreted by myself. 12-lead ECG performed at 1645 is interpreted by me as revealing normal sinus rhythm at a rate of 87 beats per minute. [place] is normal. [place] interval is 131 ms, QRS duration is 82 ms, QTc is 406 ms.. There were no ST or T wave abnormalities to suggest myocardial isc hemia or injury. R wave progression across the precordium was satisfactory. By my interpretation this EKG is non-diagnostic for acute ischemia. Disposition Clinical Impression: Fall, Alcohol intoxication Disposition: HOME SELF-CARE Condition: Good Instructions (If sedation given, give patient instructions): Alcohol Intoxication (ED), Fall Prevention (ED) Is patient prescribed a controlled substance at d/c from ED?: No Referrals: None,Stated [Primary Care Provider] - 1-2 days Forms: Area PCPs Time of Disposition: 19:25
[2024-10-29] MEDS: SODIUM CHLORIDE 0.9% 1,000 ML IV ONE (16:24)
[2024-10-29 16:32] LABS: Basophils # (A) 0.04 10*3/uL (0.00-0.10); Basophils % (A) 0.4 %; Eosinophils % (A) 1.1 %; HCT 42.7 % (39.6-50.0); HGB 14.9 g/dL (13.0-17.0); Lymphocytes # (A) 2.11 10*3/uL (0.90-5.00); Lymphocytes % (A) 22.6 %; MCH 32.1 pg (27.0-32.0); MCHC 34.9 g/dL (32.0-37.0); Mean Platelet Volume 9.3 fL (9.5-12.2); Monocytes # (A) 1.12 10*3/uL (0.20-1.00); Neutrophils # (A) 5.89 10*3/uL (1.80-7.70); Neutrophils % (A) 62.9 %; Platelet Count 275 10*3/uL (140-440); RBC 4.64 10*6/uL (4.40-5.60); RDW 14.6 % (11.5-14.5); WBC 9.35 10*3/uL (4.50-10.00)
[2024-10-29 17:06] LABS: ALT 60 U/L (4-49); AST 59 U/L (17-59); African American GFR (CKD) >90 (>60 ml/min/1.73 sqM); Alkaline Phosphatase 58 U/L (38-126); Anion Gap 12 mmol/L; Blood Urea Nitrogen 19 mg/dL (9-20); Carbon Dioxide 20 mmol/L (22-30); Chloride 106 mmol/L (98-107); Glucose 85 mg/dL (74-99); Magnesium 2.3 mg/dL (1.6-2.3); Non-African American GFR(CKD) >90 (>60 ml/min/1.73 sqM); Sodium 138 mmol/L (137-145); Total Bilirubin 0.7 mg/dL (0.2-1.3); Total Protein 7.1 g/dL (6.3-8.2)
[2024-10-29 17:12] LABS: Alcohol 217 mg/dL
[2024-10-29 17:35] LABS: Appearance,Urine Clear (Clear); Bilirubin,Urine Negative (Negative); Blood,Urine Negative (Negative); Color,Urine Colorless; Glucose,Urine (UA) Negative (Negative); Ketones,Urine Negative (Negative); Leukocyte Esterase,Urine Negative (Negative); Nitrite,Urine Negative (Negative); Protein,Urine Negative (Negative); Specific Gravity,Urine 1.002 (1.001-1.035); Urobilinogen,Urine <2.0 mg/dL (<2.0)
--- NOTE | 2024-10-29 18:00 | CT ---
EXAMINATION TYPE: CT brain cspine wo con DATE OF EXAM: 10/29/2024 5:45 PM COMPARISON: None. CLINICAL INDICATION: Male, 59 years old with history of fall; pain TECHNIQUE: Brain: Multiple axial CT images of the brain were obtained without IV contrast. Cspine: Axial CT images from the skull base to the inferior aspect of T2 we obtained without intraven ous contrast. Coronal and sagittal reformatted images were also reviewed. CT DLP: 1489 mGycm, Automated exposure control for dose reduction was used. FINDINGS: Brain: Extra-axial spaces: No abnormal extra-axial fluid collections. Ventricular system: Within normal limits Cerebral parenchyma: No acute intraparenchymal hemorrhage or mass effect. The reynolds-white junction is well differentiated. Cerebellum: Unremarkable. Mass effect: No evidence of midline shift. Intracranial vasculature: unremarkable Soft tissues: Normal. Calvarium/osseous structures: No depressed skull fracture. Paranasal sinuses and mastoid air cells: Clear. Visualized orbits: Orbital contents are intact. Cervical spine: Fracture: None. Osseous structures: Multilevel degenerative disc disease changes with endplate spurring and disc oste ophyte complex's. Subtle sclerotic focus in C7 vertebral body. Vertebral alignment: Within normal limits. Spinal canal/Neural Foramina: No evidence of significant spinal canal narrowing. No evidence for sign ificant neural foraminal stenosis. Neck soft tissues: Prevertebral soft tissues are within normal limits. Other: The airway is patent. The lung apices are clear. Probable sebaceous cyst in the posterior neck measuring 21 x 20 mm. IMPRESSION: 1. No acute intracranial process. 2. No evidence of cervical spine fracture. 3. Mild multilevel degenerative disc disease. 4. Subtle sclerotic focus in the C7 vertebral body of unknown significance. Correlate for history of malignancy. This could be possibly degenerative. No priors available for comparison. [facility], , 10/29/2024 5:57 PM
[2024-10-29] MEDS: SODIUM CHLORIDE 0.9% 1,000 ML IV SCH (18:39)
[2024-10-29 18:48] VITALS: BP 118/76
--- NOTE | 2024-10-29 19:07 | XR ---
EXAMINATION TYPE: XR chest 1V portable DATE OF EXAM: 10/29/2024 6:43 PM COMPARISON: Chest radiographs from 10/17/2024 CLINICAL INDICATION: Male, 59 years old with history of fall; pain TECHNIQUE: XR chest 1V portable Frontal view of the chest. FINDINGS: Lungs/Pleura: There is no evidence of pleural effusion, focal consolidation, or pneumothorax. Pulmonary vascularity: Unremarkable. Heart/mediastinum: Cardiomediastinal silhouette is unremarkable. Musculoskeletal: No acute osseous pathology. Other findings: None IMPRESSION: No acute cardiopulmonary disease/process. [facility], , 10/29/2024 7:05 PM
[2024-10-29 19:42] VITALS: PULSE 96; RESP 18; TEMP 98.4
== END 2024-10-29 19:36 | disposition home or self-care (01) ==
LOC: EC 15:13
DX: F10.129 Alcohol abuse with intoxication, unspecified (principal); F17.200 Nicotine dependence, unspecified, uncomplicated; W19.XXXA Unspecified fall, initial encounter; Y90.9 Presence of alcohol in blood, level not specified; Y92.480 Sidewalk as the place of occurrence of the external cause
CPT/HCPCS: 36415; 93005; 80053; 83735; 85025; 81003; 71045; 72125; 70450; 99285; 96360; 96361; G0480; 80320

== ENCOUNTER 2024-10-31 11:39 | Inpatient (IN) | payer MEDICARE, MEDICAID ==
[2024-10-31] MEDS ORDERED: MAG HYDROX/AL HYDROX/SIMETH 355 ML BOTTLE PO PRN (11:44)
[2024-10-31] MEDS ORDERED: OLANZapine 10 MG VIAL IM PRN (11:44)
[2024-10-31] MEDS ORDERED: OLANZapine 5 MG TAB PO PRN (11:44)
[2024-10-31] MEDS ORDERED: IBUPROFEN 600 MG TAB PO PRN (11:44)
[2024-10-31] MEDS ORDERED: MAGNESIUM HYDROXIDE 2,400 MG/30 ML CUP PO PRN (11:44)
[2024-10-31] MEDS ORDERED: ACETAMINOPHEN TAB 325 MG TAB PO PRN (11:44)
[2024-10-31] MEDS ORDERED: NICOTINE GUM (POLACRILEX) 2 MG GUM BUCCAL PRN (12:08)
[2024-10-31] MEDS ORDERED: CALCIUM CARBONATE 500 MG CHEWABLE PO PRN (12:08)
[2024-10-31] MEDS: LORazepam 1 MG TAB PO PRN (13:08)
[2024-10-31] MEDS: chlordiazePOXIDE 25 MG CAP PO SCH (15:40)
[2024-10-31] MEDS: SERTRALINE 100 MG TAB PO SCH (21:38)
[2024-10-31] MEDS: QUEtiapine 50 MG TAB PO SCH (21:38)
[2024-10-31] MEDS: NICOTINE 14MG/24HR PATCH TRANSDERM SCH (21:53)
--- NOTE | 2024-11-01 02:06 | P.MDCNMH ---
History of Present Illness H&P Date: 11/01/24 59-year-old male with alcohol dependence and abuse Patient was just discharged 2 days ago after spending few days in the hospital for suicidal ideation and alcohol abuse. This time he denies any suicidal ideation however he is coming in due to relapse with alcohol abuse seeking help in detox He otherwise denies any fevers chills coughing sore throat chest pain nausea vomiting abdominal pain Patient admits to tobacco smoking alcohol abuse review of systems Pertinent positives as noted in HPI. All other systems were reviewed and are negative on exam Constitutional: No acute distress, conversant, pleasant Eyes: Anicteric sclerae, moist conjunctiva, Pupils equal round reactive to light Neck: Supple, no masses, or JVD No carotid bruits No thyromegaly Lungs: Clear to auscultation Clear to percussion Normal respiratory effort, no accessory muscle use Cardiovascular: Heart regular in rate and rhythm, No murmurs, gallops, or rubs No peripheral edema Abdominal: Soft Nontender, no guarding, rebound or rigidity Abdomen moving with respiration Extremities: No digital cyanosis No clubbing Pedal pulses intact and symmetrical Radial pulses intact and symmetrical No calf tenderness Psychiatric: Alert and oriented to person, place and time Neuro Muscles Strength 5/5 in all 4 extremities Sensation to light touch grossly present throughout Cranial nerves II-XII grossly intact Assessment and plan Alcohol dependence and abuse Monitor for alcohol withdrawal Benzo per CIWA scale Thiamine p.o. daily No labs available for review at this time Thank you for this consultation Past Medical History Past Medical History: No Reported History History of Any Multi-Drug Resistant Organisms: None Reported Past Surgical History: Back Surgery Past Anesthesia/Blood Transfusion Reactions: No Reported Reaction Smoking Status: Current every day smoker - Past Family History Father Family Medical History: Unable to Obtain Mother Family Medical History: Unable to Obtain Medications and Allergies Home Medications Medication Instructions Recorded Confirmed Type Folic Acid 1 mg PO DIRECTED 10/17/24 10/31/24 History Multivitamins, Thera [Multivitamin 1 tab PO DIRECTED 10/17/24 10/31/24 History (formulary)] Calcium Carbonate [Tums] 1,000 mg PO Q4HR PRN tab 10/19/24 10/31/24 Rx Ibuprofen [Motrin] 600 mg PO Q6HR PRN tab 10/29/24 10/31/24 Rx Nicotine Gum (Polacrilex) 2 mg BUCCAL Q4HR PRN 30 Days #180 10/29/24 10/31/24 Rx [Nicorette] pieceofgum Pantoprazole [Protonix] 40 mg PO DAILY 30 Days #30 tab 10/29/24 10/31/24 Rx QUEtiapine [SEROquel] 50 mg PO HS 30 Days #30 tab 10/29/24 10/31/24 Rx Sertraline [Zoloft] 100 mg PO HS 30 Days #30 tab 10/29/24 10/31/24 Rx Thiamine [Vitamin B-1] 100 mg PO DIRECTED 10/31/24 10/31/24 History Allergies Allergy/AdvReac Type Severity Reaction Status Date / Time No Known Allergies Allergy Verified 10/23/24 22:55 Physical Exam Vitals: Vital Signs Temp Pulse Resp BP Pulse Ox 10/31/24 21:00 97 F L 87 17 98/65 96 10/31/24 12:59 97.8 F 91 16 112/70 100 Intake and Output 10/31/24 10/31/24 11/01/24 14:59 22:59 06:59 Other: Weight 89.811 kg Cranial Nerve Examination - Cranial Nerves Cranial Nerve II- Optic: Intact Cranial Nerve III- Oculomotor: Intact Cranial Nerve IV- Trochlear: Intact Cranial Nerve V- Trigeminal: Intact Cranial Nerve - Abducens: Intact Cranial Nerve VII- Facial: Intact Cranial Nerve VIII- Auditory: Intact Cranial Nerve IX- Glossopharyngeal: Intact Cranial Nerve X- Vagus: Intact Cranial Nerve XI- Accessory: Intact Cranial Nerve XII- Hypoglossal: Intact
[2024-11-01] MEDS: MULTIVITAMINS, THERA 1 EACH TAB PO SCH ×2 (10:08→13:48)
[2024-11-01] MEDS: THIAMINE 100 MG TAB PO SCH ×2 (10:08→13:48)
[2024-11-01] MEDS: FOLIC ACID 1 MG TAB PO SCH (10:08)
[2024-11-01] MEDS: PANTOPRAZOLE 40 MG TABLET PO SCH (10:08)
[2024-11-01] MEDS ORDERED: IBUPROFEN 600 MG TAB PO PRN (13:18)
[2024-11-01] MEDS ORDERED: FOLIC ACID 1 MG TAB PO SCH (13:30)
--- NOTE | 2024-11-01 13:36 | P.HP ---
Psychiatric H&P - . H&P Date: 11/01/24 History & Physical: Allergies Allergy/AdvReac Type Severity Reaction Status Date / Time No Known Allergies Allergy Verified 10/23/24 22:55 Vital Signs Temp 97 F L 10/31/24 21:00 Pulse 92 11/01/24 10:10 Resp 18 11/01/24 10:10 BP 94/63 11/01/24 10:10 Pulse Ox 95 11/01/24 10:10 FiO2 Intake & Output 10/31/24 11/01/24 11/01/24 18:59 06:59 18:59 Weight 89.811 kg Laboratory Last Values TSH 0.785 mIU/L (0.465-4.680) 11/01/24 12:00 11/01/24 13:22 IDENTIFYING DATA: Patient is a 59-year-old homeless man currently collecting disability for bipolar disorder HPI: Patient presented to the hospital under voluntary condition. The patient notes that he was having suicidal thoughts of jumping in the river and drowning himself. He notes after his last admission he relapsed and has been drinking for the last 2 days. He notes that the main reason he did not jump in the river with his he was thinking about his 2 children. He notes that he is glad that he did not kill himself. Patient currently rates his depression and anxiety 10/10 with 10 being worst. He notes that he gets 3 to 4 hours of sleep at night. He notes that his energy and appetite are normal but his concentration is fair. He does feel hopeless at this time. He notes that he has been crying and having feelings of guilt. Per review of bipolar disorder patient does have a past history specifically 6 months ago of a manic episode of racing thoughts, pressured speech, increased energy, grandiose thoughts, little need for sleep lasting between 2 to 3 days and then he crashes and gets depressed. He notes that he has 12 years of sobriety and has been through this and notes the depression last in sobriety. Other reviews were negative for OCD, PTSD or psychosis. PAST PSYCHIATRIC HISTORY: Patient has a history of Bipolar disorder, Alcohol use disorder, Anxiety. The patient is currently on sertraline and Seroquel but in the past has been on Antabuse. The patient has multiple hospitalizations in the past but states that he has only been hospitalized 4 times. Patient denies any psychiatric outpatient follow-up. Patient denies any history of suicide attempts in the past. Outside of 2 DUIs the patient is never been incarcerated for anything else and denies any history of violence. Patient denies any physical, verbal or sexual abuse in childhood. PMH: as per ER note ALLERGIES: as per EMR CHEMICAL DEPENDENCY HISTORY: as per HPI FAMILY PSYCHIATRIC/SUBSTANCE USE HISTORY: Mother suffers from bipolar disorder father suffered from alcoholism. SOCIAL HISTORY: Patient was born and raised in [place] and notes that his childhood was "happy". He notes that he attended school to the 11th grade and dropped out notes that he had fair grades. He was for 12 years and has 2 children from that marriage. He is currently homeless. He notes that he gets disability for his bipolar disorder. He notes that he is spiritual. He denies any service. MENTAL STATUS EXAM: General Appearance: Patient appears to be older than stated age is alert, directable, and attempts to cooperate. Patient appears to have poor hygiene and ungroomed. Behavior: Patient is seated without any agitated behavior. Passive and withdrawn Speech: Patient's speech is fluent and nonpressured. Mood/Affect: Patient reports their mood is depressed, affect is congruent and constricted. Suicidality/Homicidality: Patient denies having any homicidal ideation intent or plan. Denies any suicidal ideations intent or plan Perceptions: Patient denies any visual hallucinations and denies any auditory hallucinations Though content/process: There is no evidence of any delusional thought content and thought process is linear and goal-directed. Memory and concentration: AOX3, grossly intact for the purposes of this session. Can spell "WORLD" backwards Judgment and insight: Poor STRENGTHS/WEAKNESSES: strength is that patient is resilient. Weakness is that patient has poor judgment and is impulsive INTELLECT: Average Diagnosis: Alcohol use disorder severe Bipolar disorder type I most recent episode depressed Generalized anxiety disorder Tobacco use disorder PLAN: -Patient is admitted under voluntary status to [facility] for stabilization of psychiatric symptoms and safety. Patient has signed adult voluntary form and medication consent and is placed in patient's chart. -Medications : Increase Seroquel 100 mg take 1 tablet by mouth at bedtime for bipolar disorder -Ativan and Zyprexa PRN for agitation/aggression -Started thiamine, MVM for etoh use Discontinue CIWA protocol patient however he went through detox 2 days ago -Will offer patient subtance use rehab -Patient was informed of the risks, benefits and side effects of the medication and patient verbally consented to taking the medications. Patient signed med consent form and was placed in chart. -Internal Medicine consult to perform medical evaluation and physical. -NRT -nicotine patch -SW on board for discharge planning. Encourage patient to participate in groups to work on coping skills.
[2024-11-01 16:31] LABS: Chol/HDL Ratio 2.49 Ratio; LDL Cholesterol,Calculated 66.1 mg/dL (0.0-131.0); VLDL Calculation 14.04 mg/dL (5.00-40.00)
[2024-11-02] MEDS: FOLIC ACID 1 MG TAB PO SCH (09:03)
--- NOTE | 2024-11-02 10:09 | P.PN ---
Progress Note - Text Interval History: Patient was seen in bed and was directable and agreeable to speak with creative writer in the office. The patient notes that he is doing "a lot better". He rates his depression and anxiety 7/10 versus 10/10 yesterday. He notes that he had a solid 8 hours of sleep last night. He notes no racing thoughts or mood swings. He does note that he is craving alcohol and rates it 8/10. He continues to suffer from low energy, appetite and concentration. Discharge planning was discussed with the patient.. At this time patient denies any suicidal or homical ideations, intent or plan. Patient denies any auditory, visual hallucinations and denies any paranoia or delusions. Patient denies any side effects from the medications and has been compliant with meds. Mental Status Exam: General Appearance: Patient appears to be stated age is alert, directable, and cooperative. Behavior: Patient is calmly seated without any agitated behavior. Speech: Patient's speech is fluent and nonpressured. Mood/Affect: Mood is improving mildly, affect is congruent and constricted. Suicidality/Homicidality: Patient denies having any suicidal or homicidal ideation intent or plan. Perceptions: Patient denies any visual hallucinations and denies any auditory hallucinations Though content/process: There is no evidence of any delusional thought content and thought process is linear and goal-directed. Memory and concentration: AOX3, grossly intact for the purposes of this session Judgment and insight: Improving mildly Diagnosis: Alcohol use disorder severe Bipolar disorder type I most recent episode depressed Generalized anxiety disorder Tobacco use disorder Assessment: 59-year-old male presenting for suicidal thoughts currently following up after increase in Seroquel. Patient appears to be brighter and more positive. Metric scores have decreased from 10/10 to 7/10 which is encouraging. We did discuss discharge planning including possible residential substance abuse. PLAN: -Patient is admitted under voluntary status to [facility]HU for stabilization of psychiatric symptoms and safety. Patient has signed adult voluntary form and medication consent and is placed in patient's chart. -Medications : Continuing Seroquel 100 mg take 1 tablet by mouth at bedtime for bipolar disorder Start Acamprosate 333 mg take 1 tablet by mouth 3 times daily for alcohol cravings/long-term withdrawal -Ativan and Zyprexa PRN for agitation/aggression -Started thiamine, MVM for etoh use Discontinue CIWA protocol patient however he went through detox 2 days ago -Will offer patient subtance use rehab -Patient was informed of the risks, benefits and side effects of the medication and patient verbally consented to taking the medications. Patient signed med consent form and was placed in chart. -Internal Medicine consult to perform medical evaluation and physical. -NRT -nicotine patch -SW on board for discharge planning. Encourage patient to participate in groups to work on coping skills.
[2024-11-02] MEDS: LORazepam 1 MG TAB PO PRN ×2 (12:04→13:49)
[2024-11-02] MEDS: OLANZapine ODT 5 MG TAB PO PRN (13:04)
[2024-11-02] MEDS: ACAMPROSATE CALCIUM 333 MG TABLET.DR PO SCH (15:39)
--- NOTE | 2024-11-03 11:36 | P.PN ---
Progress Note - Text Progress Note Date: 11/03/24 Interval History: Patient was seen wandering the hallways and was directable and agreeable to spe ak with travel writer in the office. The patient initially wanted to be discharged yesterday and signed an AMA 72-hour discharge sheet but has changed his mind today. He notes that he will rescind his 72-hour AMA sheet. He notes that his depression and anxiety remain high and rates both of them 7/10 with 10 being worst. He notes that the cravings are currently 7/10. He denies any withdrawal symptoms from alcohol. He denies any suicidal thoughts today. He notes that he struggled with sleep last night and only got 3 hours. He notes that his energy and appetite are good. He describes his concentration as "okay". He denies any racing thoughts or mood swings. At this time he is elected not to make any changes in medication management. Patient denies any side effects from the medications and has been compliant with meds. Mental Status Exam: General Appearance: Patient appeared to be disheveled and slightly older than his stated age Behavior: Patient was calm and sat with out agitated behavior but tended to respond in a guarded manner. Speech: Patient's speech is fluent and nonpressured. Mood/Affect: Mood is improving mildly, affect was blunted Suicidality/Homicidality: Patient denies having any suicidal or homicidal ideation intent or plan. Perceptions: Patient denies any visual hallucinations and denies any auditory hallucinations Though content/process: There is no evidence of any delusional thought content and thought process is linear and goal-directed. Memory and concentration: AOX3, grossly intact for the purposes of this session Judgment and insight: Improving mildly Diagnosis: Alcohol use disorder severe Bipolar disorder type I most recent episode depressed Generalized anxiety disorder Tobacco use disorder Assessment: The patient presented today wishing to stay to complete his recovery and eventually go to residential. He was informed that we would not discharge today if he changed his mind and more likely discharge tomorrow. He had voiced that he does not want any more changes in medications. Patient continues to look somewhat stiff and cognitively concrete. PLAN: -Patient is admitted under voluntary status to MHU for stabilization of psychi atric symptoms and safety. Patient has signed adult voluntary form and medication consent and is placed in patient's chart. -Medications : Continuing Seroquel 100 mg take 1 tablet by mouth at bedtime for bipolar disorder Start Acamprosate 333 mg take 1 tablet by mouth 3 times daily for alcohol cravings/long-term withdrawal -Ativan and Zyprexa PRN for agitation/aggression -Started thiamine, MVM for etoh use Discontinue CIWA protocol patient however he went through detox 2 days ago -Will offer patient subtance use rehab -Patient was informed of the risks, benefits and side effects of the medication and patient verbally consented to taking the medications. Patient signed med consent form and was placed in chart. -Internal Medicine consult to perform medical evaluation and physical. -NRT -nicotine patch -SW on board for discharge planning. Encourage patient to participate in groups to work on coping skills.
--- NOTE | 2024-11-04 10:54 | P.PN ---
Progress Note - Text Progress Note Date: 11/04/24 Interval History: Patient was seen lying in his bed and was directable and agreeable to speak with continuity writer in the office. The patient notes that his depression remains somewhat high and rates both of his depressive symptoms and anxiety symptoms is 8/10. He notes that his alcohol cravings have decreased to 3/10 and he has no withdrawal effects from the alcohol. He denies any active racing thoughts or mood swings. He notes that his sleep, energy and appetite are good. He notes that he had trouble with short-term memory after a heroin overdose sometime ago. At this time patient denies any suicidal or homical ideations, intent or plan. Patient denies any auditory, visual hallucinations and denies any paranoia or delusions. Patient denies any side effects from the medications and has been compliant with meds. Mental Status Exam: General Appearance: Continues to present disheveled wearing the same shirt and pants that he has for several days. Behavior: Patient presented calm but slightly anxious during the interview. He appeared to be more responsive Speech: Patient's speech is fluent and nonpressured. Mood/Affect: Mood is improving mildly, affect is congruent and constricted. Suicidality/Homicidality: Patient denies having any suicidal or homicidal ideation intent or plan. Perceptions: Patient denies any visual hallucinations and denies any auditory hallucinations Though content/process: There is no evidence of any delusional thought content and thought process is linear and goal-directed. Memory and concentration: AOX3, grossly intact for the purposes of this session Judgment and insight: Improving mildly Diagnosis: Alcohol use disorder severe Bipolar disorder type I most recent episode depressed Generalized anxiety disorder Tobacco use disorder Assessment: It appears that the patient had anoxic brain injury after an overdose. He did have a scan but does not know the results from it. He was informed that he needs to start working on residential treatment when I give him a phone number if not more likely [facility] PLAN: -Patient is admitted under voluntary status to [facility]HU for stabilization of psychiatric symptoms and safety. Patient has signed adult voluntary form and medication consent and is placed in patient's chart. -Medications : Continuing Seroquel 100 mg take 1 tablet by mouth at bedtime for bipolar disorder Acamprosate 333 mg take 1 tablet by mouth 3 times daily for alcohol cravings/lo ng-term withdrawal -Ativan and Zyprexa PRN for agitation/aggression -Started thiamine, MVM for etoh use Discontinue CIWA protocol patient however he went through detox 2 days ago -Will offer patient subtance use rehab -Patient was informed of the risks, benefits and side effects of the medication and patient verbally consented to taking the medications. Patient signed med consent form and was placed in chart. -Internal Medicine consult to perform medical evaluation and physical. -NRT -nicotine patch -SW on board for discharge planning. Encourage patient to participate in groups to work on coping skills.
[2024-11-05 09:31] VITALS: BP 127/73; PULSE 81; RESP 16; TEMP 98.1
--- NOTE | 2024-11-05 11:43 | P.DS ---
Providers Date of admission: 10/31/24 12:18 Admission HPI: Admission note was completed by Dr. Montano "The patient presented to the hospital under voluntary condition. The patient notes that he was having suicidal thoughts of jumping in the river and drowning himself. He notes after his last admission he relapsed and has been drinking for the last 2 days. He notes that the main reason he did not jump in the river was he was thinking about his 2 children. He notes that he is glad that he did not kill himself. The patient currently rates his depression and anxiety 10/10 with 10 being worst. He notes that he gets 3 to 4 hours of sleep at night. He notes that his energy and appetite are normal but his concentration is fair. He does feel hopeless at this time. He notes that he has been crying and having feelings of guilt. Per review of bipolar disorder patient does have a past history specifically 6 months ago of a manic episode of racing thoughts, pressured speech, increased energy, grandiose thoughts, little need for sleep lasting between 2 to 3 days and then he crashes and gets depressed. He notes that he has 12 years of sobriety and has been through this and notes the depression last in sobriety. Other reviews were negative for OCD, PTSD or psychosis." Hospital course: Upon admission to the unit patient was directable and agreeable to commence treatment and signed adult voluntary form. Additionally patient presented to the unit withdrawn and isolating to his room and slept. Upon discussion indicated he had an anoxic brain injury. Patient was ambiguous about wanting help for his alcohol use but eventually chose to go to residential treatment however reversed his decision later on and requested discharge. Patient got along well with other patients on the unit and followed unit protocol. Patient was compliant with the medications and denied any side effects throughout hospital course. Patient was started on Acamprosate and Seroquel. Patient spoke of his stressors and engaged in therapy both group and individual. Patient was also seen by medical team for history and physical exam. Throughout the course of the hospitalization patient gradually improved with regards to mood, anxiety, sleep and returned back to their baseline level of functioning became more future oriented with improved insight and judgment. On the day of discharge patient denied any suicidal or homicidal ideations intent or plan denied any auditory or visual hallucinations. Patient endorsed wanting to live for their health and family. The patient denied any access to guns or weapons. Patient denied any paranoia and did not endorse any delusions. Patient does have a significant history of substance abuse was counseled on abstaining from all substances including alcohol and marijuana. Patient was offered however declined inpatient substance-abuse rehab. Patient was also counseled on the medications and need for regular compliance and was encouraged to follow-up with their outpatient appointment for mental health and also for primary care. Prior to discharge a family meeting will be arranged by social contact worker to answer any questions and ensure safety upon discharge incuding making sure that guns/weapons are either removed from the home or locked away. The patient finally decided to discharge and denied any suicidal or homicidal ideations. He notes that his depression and anxiety are moderate. He notes that his cravings are 3/10. He plans to stay with his daughter on discharge. Mental status exam: General Appearance: Patient appears to be he stated age is alert, pleasant, and cooperative. Patient is in no acute distress and has improved hygiene and grooming Behavior: Patient is calmly seated without any agitated behavior. Speech: Patient's speech is fluent and nonpressured. Mood/Affect: Patient reports their mood is "better good", affect is congruent and euthymic. Suicidality/Homicidality: Patient denies having any suicidal or homicidal ideation intent or plan. Perceptions: Patient denies any auditory or visual hallucinations. Though content/process: There is no evidence of any delusional thought content and thought process is linear and goal-directed. More future oriented Memory and concentration: AOX3, grossly intact for the purposes of this session. Can spell "WORLD" backwards correctly. Judgment and insight: Chronically poor, however has improved with guarded prognosis Diagnosis: Alcohol use disorder severe Bipolar disorder type I most recent episode depressed Generalized anxiety disorder Tobacco use disorder Plan: -Continue with discharge today as patient has improved and stabilized psychiatrically and is not currently an imminent threat to themself and/or others. Patient will remain at chronically elevated risk for harm to self and/or others due to their impulsivity and substance abuse. -Continue medications: Seroquel 100 mg take 1 tablet by mouth at bedtime for bipolar disorder Acamprosate 333 mg take 1 tablet by mouth 3 times daily for alcohol cravings/long-term -Patient was counseled on the need for medication compliance and appropriate follow-up at mental health and also primary care for medical issues. Patient verbalized understanding and agreed. -Social work to help coordinate patients discharge today arrange for and conduct family meeting to ensure safety upon discharge and answer any questions/concerns. also to ensure safe home environment that guns/weapons are either removed from the home or locked away. Social work also to arrange for patients follow up appointments with [facility] for psychiatric care along with follow up with primary care provider. -Patient counseled on abstaining from recreational drugs and marijuana and alco hol. Was informed/educated on the adverse effects on their physical and mental health. Patient verbally agreed and understood. Patient was offered substance abuse treatment however declined at this time. -Patient was instructed to return to the hospital or seek immediate medical care if their psychiatric or medical symptoms do worsen or reoccur. Expected date of discharge: 11/05/24 Attending physician: Janes Sprague MD Consults: 10/31/24 11:44 Consult Physician Routine Consulting Provider: [facility] Consult Reason/Comments: H & P with [facility] Do you want consulting provider notified?: Yes Primary care physician: Stated None - Discharge Diagnosis(es) (1) Alcohol use disorder, severe, dependence Current Visit: Yes Status: Chronic Priority: Medium (2) Bipolar 1 disorder, depressed, severe Current Visit: Yes Status: Chronic Priority: Medium (3) LIZZETTE (generalized anxiety disorder) Current Visit: Yes Status: Chronic Priority: Low (4) Suicidal ideation Current Visit: Yes Status: Resolved Priority: Low Patient Condition at Discharge: Fair Plan - Discharge Summary New Discharge Prescriptions: No Action Multivitamins, Thera [Multivitamin (formulary)] 1 tab PO DIRECTED Calcium Carbonate [Tums] 1,000 mg PO Q4HR PRN tab PRN Reason: Dyspepsia Sertraline [Zoloft] 100 mg PO HS 30 Days #30 tab Folic Acid 1 mg PO DIRECTED Ibuprofen [Motrin] 600 mg PO Q6HR PRN tab PRN Reason: Moderate Pain (Scale 4 To 6) Nicotine Gum (Polacrilex) [Nicorette] 2 mg BUCCAL Q4HR PRN 30 Days #180 pieceofgum PRN Reason: Nicotine Cravings QUEtiapine [SEROquel] 50 mg PO HS 30 Days #30 tab Pantoprazole [Protonix] 40 mg PO DAILY 30 Days #30 tab Thiamine [Vitamin B-1] 100 mg PO DIRECTED Discharge Medication List Folic Acid 1 mg PO DIRECTED 10/17/24 [History] Multivitamins, Thera [Multivitamin (formulary)] 1 tab PO DIRECTED 10/17/24 [History] Calcium Carbonate [Tums] 1,000 mg PO Q4HR PRN tab 10/19/24 [Rx] Ibuprofen [Motrin] 600 mg PO Q6HR PRN tab 10/29/24 [Rx] Nicotine Gum (Polacrilex) [Nicorette] 2 mg BUCCAL Q4HR PRN 30 Days #180 pieceofgum 10/29/24 [Rx] Pantoprazole [Protonix] 40 mg PO DAILY 30 Days #30 tab 10/29/24 [Rx] QUEtiapine [SEROquel] 50 mg PO HS 30 Days #30 tab 10/29/24 [Rx] Sertraline [Zoloft] 100 mg PO HS 30 Days #30 tab 10/29/24 [Rx] Thiamine [Vitamin B-1] 100 mg PO DIRECTED 10/31/24 [History] Follow up Appointment(s)/Referral(s): [facility] [Outside] - 11/08/24 1:00 pm (with Britany ) Patient Instructions/Handouts: Depression (DC) Activity/Diet/Wound Care/Special Instructions: Avoid the use of street drugs and alcohol. Take all medications as prescribed. When you are in need of refills on your medications, please contact your medical provider and/or outpatient psychiatrist/provider to have this done. Please go to your scheduled outpatient appointment for aftercare treatment. If symptoms return or become worse, call the crisis line at and/or go to the nearest emergency room for evaluation. National Suicide Hotline [address] [facility] confidentiality statement: "The information contained in this communication, including attachments, is confidential, may be privileged, and is intended only for the use of the named recipient(s). Unauthorized use, disclosure, forwarding or copying is strictly prohibited and may be unlawful. If you have received this communication in error, please notify me IMMEDIATELY at the phone number or pager listed above. Discharge/Stand Alone Forms: JENNIFER Grossman
== END 2024-11-05 12:57 | disposition home or self-care (01) | DRG 897 ==
LOC: 3MHU 12:18
PROVIDERS: ADMIT Psychiatry & Neurology Psychiatry; ATTEND Psychiatry & Neurology Psychiatry
PROC: HZ2ZZZZ Detoxification Services for Substance Abuse Treatment (ICD-10-PCS; principal; 2024-10-31)
DX: F10.20 Alcohol dependence, uncomplicated (principal); F31.4 Bipolar disorder, current episode depressed, severe, without psychotic features; Z59.00 Homelessness unspecified; R45.851 Suicidal ideations; F41.1 Generalized anxiety disorder; F17.210 Nicotine dependence, cigarettes, uncomplicated; Z71.41 Alcohol abuse counseling and surveillance of alcoholic; Z71.6 Tobacco abuse counseling; Z79.899 Other long term (current) drug therapy; Z81.8 Family history of other mental and behavioral disorders
CPT/HCPCS: 80061; 83036; 84443

== ENCOUNTER 2024-11-07 08:54 | Emergency (ER) | payer MEDICARE, MEDICAID ==
[2024-11-07 09:10] VITALS: RESP 18
--- NOTE | 2024-11-07 09:21 | ED ---
General Adult HPI - General Chief complaint: Alcohol Stated complaint: Alcohol Time Seen by Provider: 11/07/24 08:59 Source: patient, police, RN notes reviewed Mode of arrival: ambulatory Limitations: no limitations - History of Present Illness Initial comments: Patient is a 59-year-old male present to the emergency department for alcohol intoxication. Patient states he drank about 1/5 of alcohol today. Patient states he normally drinks 1/5 of alcohol. Patient states he was brought in and did not want to come. Patient has no complaints. Patient denies any injury. - Related Data Home Medications Medication Instructions Recorded Confirmed Folic Acid 1 mg PO DIRECTED 10/17/24 10/31/24 Multivitamins, Thera [Multivitamin 1 tab PO DIRECTED 10/17/24 10/31/24 (formulary)] Thiamine [Vitamin B-1] 100 mg PO DIRECTED 10/31/24 10/31/24 Previous Rx's Medication Instructions Recorded Pantoprazole [Protonix] 40 mg PO DAILY 30 Days #30 tab 10/29/24 Acamprosate Calcium [Campral] 333 mg PO TID 30 Days tab 11/05/24 QUEtiapine [SEROquel] 50 mg PO HS 30 Days #30 tab 11/05/24 Allergies Allergy/AdvReac Type Severity Reaction Status Date / Time No Known Allergies Allergy Verified 11/07/24 08:58 Review of Systems ROS Statement: Those systems with pertinent positive or pertinent negative responses have been documented in the HPI. ROS Other: All systems not noted in ROS Statement are negative. Constitutional: Denies: fever Eyes: Denies: eye pain ENT: Denies: ear pain Respiratory: Denies: cough Cardiovascular: Denies: chest pain Gastrointestinal: Denies: abdominal pain Neurological: Denies: headache, weakness Past Medical History Past Medical History: No Reported History History of Any Multi-Drug Resistant Organisms: None Reported Past Surgical History: Back Surgery Past Anesthesia/Blood Transfusion Reactions: No Reported Reaction Past Psychological History: Bipolar Smoking Status: Current every day smoker - Past Family History Father Family Medical History: Unable to Obtain Mother Family Medical History: Unable to Obtain General Exam Limitations: no limitations General appearance: alert, in no apparent distress Head exam: Present: atraumatic Eye exam: Present: normal appearance, PERRL, EOMI ENT exam: Present: normal oropharynx Neck exam: Present: normal inspection. Absent: tenderness Respiratory exam: Present: normal lung sounds bilaterally Cardiovascular Exam: Present: regular rate, normal rhythm GI/Abdominal exam: Present: soft. Absent: tenderness Extremities exam: Present: normal inspection Neurological exam: Present: alert, normal gait. Absent: motor sensory deficit Expanded Neurological exam: Present: protecting the airway Patient oriented to: Present: person, place. Absent: time (2022) Motor strength exam: RUE: 5, LUE: 5, RLE: 5, LLE: 5 Psychiatric exam: Present: normal affect, normal mood Skin exam: Present: normal color Course Vital Signs 11/07/24 11/07/24 11/07/24 08:55 09:09 10:41 Temperature 97.5 F L Pulse Rate 92 87 79 Respiratory 16 18 18 Rate Blood Pressure 146/92 122/89 151/112 O2 Sat by Pulse 96 98 97 Oximetry 11/07/24 11:10 Temperature 97.7 F Pulse Rate 87 Respiratory 18 Rate Blood Pressure 133/58 O2 Sat by Pulse 98 Oximetry EKG Findings - EKG Results: EKG: interpreted by ERMD, sinus rhythm, normal axis, normal QRS, normal ST/T Medical Decision Making - Medical Decision Making Was pt. sent in by a medical professional or institution (, PA, BENCH ASSEMBLY INSPECTOR, urgent care, hospital, or assisted...) When possible be specific @ -No Did you speak to anyone other than the patient for history (EMS, parent, family, police, friend...)? What history was obtained from this source @ - Did you review nursing and triage notes (agree or disagree)? Why? @ -I reviewed and agree with nursing and triage notes Were old charts reviewed (outside hosp., previous admission, EMS record, old EKG, old radiological studies, urgent care reports/EKG's, assisted records)? Report findings @ -No old charts were reviewed Differential Diagnosis (chest pain, altered mental status, abdominal pain women, abdominal pain men, vaginal bleeding, weakness, fever, dyspnea, syncope, headache, dizziness, GI bleed, back pain, seizure, CVA, palpatations, mental health, musculoskeletal)? @ -Differential Altered Mental Status: Hypoglycemia, DKA, hypercapnia, ETOH, overdose, CO poisoning, trauma, myxedema coma, HTN encephalopathy, infection, encephalitis, psychosis, intercranial hemorrhage, hepatic encephalopathy, meningitis, CVA, this is not meant to be an all-inclusive list EKG interpreted by me (3pts min.). @ -As above X-rays interpreted by me (1pt min.). @ -Chest x-ray shows no acute process CT interpreted by me (1pt min.). @ -CT of the brain without acute abnormality U/S interpreted by me (1pt. min.). @ -None done What testing was considered but not performed or refused? (CT, X-rays, U/S, labs)? Why? @ -None What meds were considered but not given or refused? Why? @ -None Did you discuss the management of the patient with other professionals (professionals i.e. , PA, BENCH ASSEMBLY INSPECTOR, lab, RT, psych nurse, social media specialist, donor relations associate, teacher, agricultural technical officer, field nurse case manager)? Give summary @ -Nursing did speak with psychiatric team who is familiar and states patient does have some chronic confusion Was smoking cessation discussed for >3mins.? @ -No Was critical care preformed (if so, how long)? @ -No Were there social determinants of health that impacted care today? How? (Homelessness, low income, unemployed, alcoholism, drug addiction, transportation, low edu. Level, literacy, decrease access to med. care, correction, rehab)? @ -No Was there de-escalation of care discussed even if they declined (Discuss DNR or withdrawal of care, Hospice)? DNR status @ -No What co-morbidities impacted this encounter? (DM, HTN, Smoking, COPD, CAD, C ancer, CVA, ARF, Chemo, Hep., AIDS, mental health diagnosis, sleep apnea, morbid obesity)? @ -None Was patient admitted / discharged? Hospital course, mention meds given and route, prescriptions, significant lab abnormalities, going to OR and other pertinent info. @ -Patient presents with concern for altered mental status and wandering around [place]. Patient states he did drink some alcohol but just a little bit. Patient does admit to drug use including amphetamine and cocaine and benzodiazep ine. Patient does admit to memory problems. Patient is alert and oriented to month however still not year. Steady gait. Patient will be discharged to police officers Undiagnosed new problem with uncertain prognosis? @ -No Drug Therapy requiring intensive monitoring for toxicity (Heparin, Nitro, Insulin, Cardizem)? @ -No Were any procedures done? @ -No Diagnosis/symptom? @ -Polysubstance abuse Acute, or Chronic, or Acute on Chronic? @ -Acute on chronic Uncomplicated (without systemic symptoms) or Complicated (systemic symptoms)? @ -Default Side effects of treatment? @ -No Exacerbation, Progression, or Severe Exacerbation? @ -No Poses a threat to life or bodily function? How? (Chest pain, [place], [place], pneumonia, PE, COPD, DKA, ARF, appy, cholecystitis, CVA, Diverticulitis, Homicidal, Suicidal, threat to staff... and all critical care pts) @ -No - Lab Data Result diagrams: 11/07/24 09:36 11/07/24 09:36 Lab Results 11/07/24 11/07/24 11/07/24 Range/Units 09:12 09:33 09:36 WBC 12.66 H (4.50-10.00) 10*3/uL RBC 4.73 (4.40-5.60) 10*6/uL Hgb 15.0 (13.0-17.0) g/dL Hct 43.3 (39.6-50.0) % MCV 91.5 (80.0-97.0) fL MCH 31.7 (27.0-32.0) pg MCHC 34.6 (32.0-37.0) g/dL Plt Count 315 (140-440) 10*3/uL MPV 9.0 L (9.5-12.2) fL Immature Gran % (Auto) 0.5 % Neutrophils % 68.9 % Lymphocytes % 17.6 % Monocytes % 11.5 % Eosinophils % 0.9 % Basophils % 0.6 % Immature Gran # 0.06 H (0.00-0.04) 10*3/uL Neutrophils # 8.73 H (1.80-7.70) 10*3/uL Lymphocytes # 2.23 (0.90-5.00) 10*3/uL Monocytes # 1.45 H (0.20-1.00) 10*3/uL Eosinophils # 0.11 (0.04-0.35) 10*3/uL Basophils # 0.08 (0.00-0.10) 10*3/uL PT (10.0-12.5) sec INR (<1.2) APTT (22.0-30.0) sec Sodium (137-145) mmol/L Potassium (3.5-5.1) mmol/L Chloride (98-107) mmol/L Carbon Dioxide (22-30) mmol/L Anion Gap mmol/L BUN (9-20) mg/dL Creatinine (0.66-1.25) mg/dL Est GFR (CKD-EPI)AfAm (>60 ml/min/1.73 sqM) Est GFR (CKD-EPI)NonAf (>60 ml/min/1.73 sqM) Glucose (74-99) mg/dL POC Glucose (mg/dL) 97 (70-110) mg/dL POC Glu Collar Turner Operator ID [place] Calcium (8.4-10.2) mg/dL Total Bilirubin (0.2-1.3) mg/dL AST (17-59) U/L ALT (4-49) U/L Alkaline Phosphatase (38-126) U/L Total Protein (6.3-8.2) g/dL Albumin (3.5-5.0) g/dL Urine Color Light Yellow Urine Appearance Clear (Clear) Urine pH 6.0 (5.0-8.0) Ur Specific [place] 1.014 (1.001-1.035) Urine Protein Negative (Negative) Urine Glucose (UA) Negative (Negative) Urine Ketones Negative (Negative) Urine Blood Negative (Negative) Urine Nitrite Negative (Negative) Urine Bilirubin Negative (Negative) Urine Urobilinogen <2.0 (<2.0) mg/dL Ur Leukocyte Esterase Negative (Negative) Urine Opiates Screen Not Detected (NotDetected) Ur Oxycodone Screen Not Detected (NotDetected) Urine Methadone Screen Not Detected (NotDetected) Ur Barbiturates Screen Not Detected (NotDetected) U Tricyclic Antidepress Not Detected (NotDetected) Ur Phencyclidine Scrn Not Detected (NotDetected) Ur Amphetamines Screen Detected H (NotDetected) U Methamphetamines Scrn Detected H (NotDetected) U Benzodiazepines Scrn Detected H (NotDetected) Urine Cocaine Screen Detected H (NotDetected) U Marijuana (THC) Screen Not Detected (NotDetected) Serum Alcohol mg/dL 11/07/24 11/07/24 Range/Units 09:36 09:36 WBC (4.50-10.00) 10*3/uL RBC (4.40-5.60) 10*6/uL Hgb (13.0-17.0) g/dL Hct (39.6-50.0) % MCV (80.0-97.0) fL MCH (27.0-32.0) pg MCHC (32.0-37.0) g/dL Plt Count (140-440) 10*3/uL MPV (9.5-12.2) fL Immature Gran % (Auto) % Neutrophils % % Lymphocytes % % Monocytes % % Eosinophils % % Basophils % % Immature Gran # (0.00-0.04) 10*3/uL Neutrophils # (1.80-7.70) 10*3/uL Lymphocytes # (0.90-5.00) 10*3/uL Monocytes # (0.20-1.00) 10*3/uL Eosinophils # (0.04-0.35) 10*3/uL Basophils # (0.00-0.10) 10*3/uL PT 11.1 (10.0-12.5) sec INR 1.0 (<1.2) APTT 25.4 (22.0-30.0) sec Sodium 137 (137-145) mmol/L Potassium 4.8 (3.5-5.1) mmol/L Chloride 104 (98-107) mmol/L Carbon Dioxide 22 (22-30) mmol/L Anion Gap 11 mmol/L BUN 22 H (9-20) mg/dL Creatinine 0.88 (0.66-1.25) mg/dL Est GFR (CKD-EPI)AfAm >90 (>60 ml/min/1.73 sqM) Est GFR (CKD-EPI)NonAf >90 (>60 ml/min/1.73 sqM) Glucose 104 H (74-99) mg/dL POC Glucose (mg/dL) (70-110) mg/dL POC Glu Collar Turner Operator ID Calcium 8.9 (8.4-10.2) mg/dL Total Bilirubin 1.0 (0.2-1.3) mg/dL AST 76 H (17-59) U/L ALT 47 (4-49) U/L Alkaline Phosphatase 80 (38-126) U/L Total Protein 7.8 (6.3-8.2) g/dL Albumin 4.3 (3.5-5.0) g/dL Urine Color Urine Appearance (Clear) Urine pH (5.0-8.0) Ur Specific [place] (1.001-1.035) Urine Protein (Negative) Urine Glucose (UA) (Negative) Urine Ketones (Negative) Urine Blood (Negative) Urine Nitrite (Negative) Urine Bilirubin (Negative) Urine Urobilinogen (<2.0) mg/dL Ur Leukocyte Esterase (Negative) Urine Opiates Screen (NotDetected) Ur Oxycodone Screen (NotDetected) Urine Methadone Screen (NotDetected) Ur Barbiturates Screen (NotDetected) U Tricyclic Antidepress (NotDetected) Ur Phencyclidine Scrn (NotDetected) Ur Amphetamines Screen (NotDetected) U Methamphetamines Scrn (NotDetected) U Benzodiazepines Scrn (NotDetected) Urine Cocaine Screen (NotDetected) U Marijuana (THC) Screen (NotDetected) Serum Alcohol <10 mg/dL Disposition Clinical Impression: Polysubstance abuse Disposition: HOME SELF-CARE Condition: Stable Instructions (If sedation given, give patient instructions): Polysubstance Abuse (ED) Additional Instructions: Discharged to police custody. Please discontinue all drug use. Return for change in mental status, worsening symptoms or other concerns. Is patient prescribed a controlled substance at d/c from ED?: No Referrals: Mikey Bowles DO [REFERRING] - 1-2 days Time of Disposition: 11:40
[2024-11-07 09:22] LABS: Appearance,Urine Clear (Clear); Bilirubin,Urine Negative (Negative); Blood,Urine Negative (Negative); Color,Urine Light Yellow; Glucose,Urine (UA) Negative (Negative); Ketones,Urine Negative (Negative); Leukocyte Esterase,Urine Negative (Negative); Nitrite,Urine Negative (Negative); Protein,Urine Negative (Negative); Specific Gravity,Urine 1.014 (1.001-1.035); Urobilinogen,Urine <2.0 mg/dL (<2.0)
[2024-11-07 09:35] LABS: Glucose,Whole Blood 97 mg/dL (70-110)
[2024-11-07 09:41] LABS: Basophils # (A) 0.08 10*3/uL (0.00-0.10); Basophils % (A) 0.6 %; Eosinophils # (A) 0.11 10*3/uL (0.04-0.35); Eosinophils % (A) 0.9 %; HCT 43.3 % (39.6-50.0); Lymphocytes # (A) 2.23 10*3/uL (0.90-5.00); Lymphocytes % (A) 17.6 %; MCH 31.7 pg (27.0-32.0); MCHC 34.6 g/dL (32.0-37.0); MCV 91.5 fL (80.0-97.0); Monocytes # (A) 1.45 10*3/uL (0.20-1.00); Monocytes % (A) 11.5 %; Neutrophils # (A) 8.73 10*3/uL (1.80-7.70); Neutrophils % (A) 68.9 %; Platelet Count 315 10*3/uL (140-440); RBC 4.73 10*6/uL (4.40-5.60); RDW 14.7 % (11.5-14.5); WBC 12.66 10*3/uL (4.50-10.00)
[2024-11-07] MEDS: THIAMINE 100 MG/ML 2 ML VIAL IM STA (09:51)
[2024-11-07] MEDS: SODIUM CHLORIDE 0.9% 1,000 ML IV STA (09:52)
[2024-11-07 10:03] LABS: Amphetamine Screen,Urine Detected (NotDetected); Barbiturate Screen,Urine Not Detected (NotDetected); Benzodiazepines Screen,Urine Detected (NotDetected); Cocaine Screen,Urine Detected (NotDetected); Methadone Screen, Urine Not Detected (NotDetected); Opiate Screen,Urine Not Detected (NotDetected); Oxycodone Screen, Urine Not Detected (NotDetected); Phencyclidine Screen,Urine Not Detected (NotDetected); Tricyclic Antidepressant,Urine Not Detected (NotDetected); Urn Cannabinoid Scrn Not Detected (NotDetected)
[2024-11-07 10:04] LABS: Partial Thromboplastin Time 25.4 sec (22.0-30.0); Prothrombin Time 11.1 sec (10.0-12.5)
[2024-11-07 10:05] LABS: ALT 47 U/L (4-49); African American GFR (CKD) >90 (>60 ml/min/1.73 sqM); Alcohol <10 mg/dL; Anion Gap 11 mmol/L; Blood Urea Nitrogen 22 mg/dL (9-20); Calcium 8.9 mg/dL (8.4-10.2); Carbon Dioxide 22 mmol/L (22-30); Chloride 104 mmol/L (98-107); Glucose 104 mg/dL (74-99); Non-African American GFR(CKD) >90 (>60 ml/min/1.73 sqM); Sodium 137 mmol/L (137-145)
--- NOTE | 2024-11-07 10:07 | CT ---
EXAMINATION TYPE: CT brain wo con DATE OF EXAM: 11/07/2024 10:00 AM COMPARISON: 10/29/2024. CLINICAL INDICATION: Male, 59 years old with history of Altered mental status, AMS TECHNIQUE: Brain: Axial CT images of the brain were obtained with coronal and sagittal reformats created and rev iewed. Contrast used: None. Oral contrast used: None. CT DLP: 1097.8 mGycm, Automated exposure control for dose reduction was used. FINDINGS: Brain: Extra-axial spaces: No abnormal extra-axial fluid collections. Ventricular system: Within normal limits Cerebral parenchyma: No acute intraparenchymal hemorrhage or mass effect. The reynolds-white junction is well differentiated. Cerebellum: Unremarkable. Mass effect: No evidence of midline shift. Intracranial vasculature: unremarkable Soft tissues: Normal. Calvarium/osseous structures: No depressed skull fracture. Paranasal sinuses and mastoid air cells: Mild scattered paranasal sinus disease. Visualized orbits: Orbital contents are intact. IMPRESSION: No acute intracranial process. [facility], , 11/07/2024 10:04 AM
[2024-11-07 10:10] LABS: Potassium 4.8 mmol/L (3.5-5.1)
[2024-11-07 10:11] LABS: AST 76 U/L (17-59); Albumin 4.3 g/dL (3.5-5.0); Alkaline Phosphatase 80 U/L (38-126); Total Protein 7.8 g/dL (6.3-8.2)
--- NOTE | 2024-11-07 10:27 | XR ---
EXAMINATION TYPE: XR chest 2V DATE OF EXAM: 11/07/2024 10:03 AM COMPARISON: Chest radiographs from 10/29/2024. CLINICAL INDICATION: Male, 59 years old with history of altered mental status; [facility] TECHNIQUE: XR chest 2V Frontal and lateral views of the chest. FINDINGS: Lungs/Pleura: Streaky flat like atelectasis left midlung. There is no evidence of pleural effusion, f ocal consolidation, or pneumothorax. Pulmonary vascularity: Unremarkable. Heart/mediastinum: Cardiomediastinal silhouette is unremarkable. Musculoskeletal: No acute osseous pathology. Other findings: None IMPRESSION: No acute cardiopulmonary disease/process. [facility], , 11/07/2024 10:24 AM
[2024-11-07 11:43] VITALS: BP 137/62; PULSE 84; TEMP 98
== END 2024-11-07 11:44 | disposition home or self-care (01) ==
LOC: EC 08:54
DX: F19.10 Other psychoactive substance abuse, uncomplicated (principal); F17.200 Nicotine dependence, unspecified, uncomplicated
CPT/HCPCS: 36415; 93005; 80053; 85025; 85610; 85730; 81003; 80306; 71046; 70450; 99285; 96360; 96361; 96372; G0480; J3411; 80320